=== PATIENT | male | born 1980 | race Caucasian/White ===

== ENCOUNTER 2018-06-19 18:17 | Observation (INO) | payer SELFPAY ==
[~2018-06-19] VITALS: Ht 177.8 cm; Wt 77.1 kg
--- OUTSIDE RECORDS SUMMARY | 2018-06-19 18:20 | XMS REPORT | Clinical Summary ---
Author Author [facility] Organization [facility] Address Unknown Phone Unavailable Care Team Providers Care Accounting Officer Name Role Phone Asked, No Pcp PCP Unavailable Allergies Comments Active Allergy Reactions Severity Noted Date D/t Crohn's disease Nsaids (Non-Steroidal Other (See 11/05/2015 Anti-Inflammatory Drug) Comments) D/t Crohn's disease Ketorolac 11/05/2015 Medications End Date Status Medication Sig Dispensed Refills Start Date Active hydromorPHONE (DILAUDID) Take 2 mg by 0 2 MG tablet mouth every 4 (four) hours as needed for moderate pain. Active promethazine (PHENERGAN) Take 25 mg by 0 25 MG tablet mouth every 4 (four) hours as needed for nausea or vomiting. Active levETIRAcetam (KEPPRA) Take 500 mg 0 500 MG tablet by mouth daily. Active adalimumab (HUMIRA) 40 Inject 40 mg 0 mg/0.8 mL injection under the skin once a week. Mondays Active methotrexate (TREXALL) 5 Take 5 mg by 0 MG tablet mouth 2 (two) times a week. Tuesdays and Fridays Active predniSONE (DELTASONE) 20 Take 40 mg by 0 MG tablet mouth daily. Active LORAZepam (ATIVAN) 1 MG Take 1 mg by 0 tablet mouth every 6 (six) hours as needed for anxiety. Active Problems Problem Noted Date Hematemesis 11/05/2015 Anemia Family History Medical History Relation Name Comments Cancer Mother Relation Name Status Comments Father Crohn's Disease Mother Social History Date Tobacco Use Types Packs/Day Years Used Former Smoker Cigarettes 0.5 10 Smokeless Tobacco: Former Quit: 08/07/2015 User Tobacco Cessation: Counseling Given: No Comments: patient quit 3 months ago Alcohol Use Drinks/Week oz/Week Comments No Sex Assigned at Date Recorded Not on file Industry Job Start Date Occupation Not on file Not on file Not on file Travel End Travel History Travel Start No recent travel history available. Last Filed Vital Signs Not on file Plan of Treatment Health Maintenance Due Date Last Done Comments INFLUENZA VACCINE 09/27/2018 Procedures Comments Procedure Name Priority Date/Time Associated Diagnosis TRANSFUSE RED BLOOD CELLS Routine 11/01/2017 5:25 PM CDT after 06/18/2017 Results * Transfuse RBC (11/01/2017 5:25 PM CDT) after 06/18/2017
--- OUTSIDE RECORDS SUMMARY | 2018-06-19 18:21 | XMS REPORT | Summary of Care ---
Author Organization Unknown Address Unknown Phone Unavailable Encounter ARRON Cullen(GUILHERME) [id number] Date(s): 08/12/14 - 08/12/14 [facility] [address] [employer] provided by [facility] [employer] [facility] [employer] [place] [address]- Discharge Diagnosis: Headache Discharge Disposition: Home Physician Attending: Tim Olmedo MD Vital Signs Most recent to 1 2 oldest [Reference Range]: Temperature Oral 97.6 DegF [96.4-99.1 DegF] (08/12/14 12:12 PM) Blood Pressure 105/56 mmHg 145/91 mmHg [90-140/60-90 mmHg] (08/12/14 1:52 PM) *HI* (08/12/14 12:12 PM) Respiratory Rate 15 BRMIN 18 BRMIN [14-20 BRMIN] (08/12/14 1:52 PM) (08/12/14 12:12 PM) Peripheral Pulse 92 bpm Rate [60-100 bpm] (08/12/14 12:12 PM) Weight 70.455 kg (08/12/14 12:12 PM) Problem List Condition Effective Dates Status Health Status Informant Crohns Active disease(Confirmed) Stroke(Confirmed) Resolved Allergies, Adverse Reactions, Alerts Substance Reaction Severity Status Toradol Active Medications Benadryl 12.5 mg, 0.25 mL, Route: IVP, Drug form: INJ, ONCE, Dosing Weight 70.455, kg, Pr iority: STAT, Start date: 08/12/14 13:01:00, Stop date: 08/12/14 13:01:00 Notes: (Same as: Benadryl) Start Date: 08/12/14 Stop Date: 08/12/14 Status: Completed NS (Bolus) IV 1,000 mL, 1,000 ml/hr, Infuse Over: 1 hr, Route: IV, 1,000, Drug form: INJ, ONCE , Priority: STAT, Dosing Weight 70.455 kg, Start date: 08/12/14 13:01:00, Durati on: 1 doses or times, Stop date: 08/12/14 13:01:00 Start Date: 08/12/14 Stop Date: 08/12/14 Status: Completed Reglan 10 mg, 2 mL, Route: IVP, Drug form: INJ, ONCE, Dosing Weight 70.455, kg, Priorit y: STAT, Start date: 08/12/14 13:01:00, Stop date: 08/12/14 13:01:00 Notes: (Same as: Reglan) Start Date: 08/12/14 Stop Date: 08/12/14 Status: Completed Saline Flush 0.9% 10 mL, Route: IVP, Drug Form: INJ, Dosing Weight 70.455, kg, PRN, PRN Line Flush , Start date: 08/12/14 12:23:00, Duration: 30 day, Stop date: 09/11/14 12:22:00 Notes: Same as: BD Posiflush Sterile Start Date: 08/12/14 Stop Date: 08/12/14 Status: Discontinued Visipaque 320mg/ml 120 mL, Route: IVP, Drug Form: SOLN, Dosing Weight 70.455, kg, ONCALL, STAT, Sta rt date: 08/12/14 12:53:00, Duration: 1 doses or times, Dose=2.2ml/kg, Max dose =150ml -- "To be infused by Radiology Staff ONLY" Special Instructions: Dose=2.2ml/kg, Max kqpi=[id number] -- "To be infused by Radiol ogy Staff ONLY" Start Date: 08/12/14 Stop Date: 08/12/14 Status: Completed Results ELECTROLYTES Most recent to 1 2 oldest [Reference Range]: Sodium Lvl [135-145 142 mEq/L mEq/L] (08/12/14 12:30 PM) Potassium Lvl 3.7 mEq/L [3.5-5.1 mEq/L] (08/12/14 12:30 PM) Chloride Lvl [95-109 107 mEq/L mEq/L] (08/12/14 12:30 PM) CO2 [24-32 mEq/L] 27 mEq/L (08/12/14 12:30 PM) AGAP [10.0-20.0 11.7 mEq/L mEq/L] (08/12/14 12:30 PM) CHEM PANEL Most recent to 1 2 oldest [Reference Range]: Creatinine Lvl 0.8 mg/dL [0.5-1.4 mg/dL] (08/12/14 12:30 PM) eGFR 122 mL/min/1.73m2 1 116 mL/min/1.73m2 2 *NA* *NA* (08/12/14 12:36 PM) (08/12/14 12:30 PM) BUN [7-22 mg/dL] 14 mg/dL (08/12/14 12:30 PM) Glucose Lvl [70-99 94 mg/dL 3 mg/dL] (08/12/14 12:30 PM) POC Creatinine 0.7 mg/dL [0.5-1.4 mg/dL] (08/12/14 12:36 PM) Calcium Lvl 8.5 mg/dL [8.5-10.5 mg/dL] (08/12/14 12:30 PM) 1Result Comment: The eGFR is calculated using the CKD-EPI formula. In most young, healthy individuals the eGFR will be >90 mL/min/1.73m2. The eGFR declines with age. An eGFR of 60-89 may be normal in some populations, particularly the elderly, for whom the CKD-EPI formula has not been extensively validated. Use of the eGFR is not recommended in the following populations: Individuals with unstable creatinine concentrations, including patients and those with serious co-morbid conditions. Patients with extremes in muscle mass or diet. The data above are obtained from the National Kidney Disease Education Program ( NKDEP) which additionally recommends that when the eGFR is used in patients with extremes of body mass index for purposes of drug dosing, the eGFR should be mul tiplied by the estimated BMI. 2Result Comment: The eGFR is calculated using the CKD-EPI formula. In most young, healthy individuals the eGFR will be >90 mL/min/1.73m2. The eGFR declines with age. An eGFR of 60-89 may be normal in some populations, particularly the elderly, for whom the CKD-EPI formula has not been extensively validated. Use of the eGFR is not recommended in the following populations: Individuals with unstable creatinine concentrations, including patients and those with serious co-morbid conditions. Patients with extremes in muscle mass or diet. The data above are obtained from the National Kidney Disease Education Program ( NKDEP) which additionally recommends that when the eGFR is used in patients with extremes of body mass index for purposes of drug dosing, the eGFR should be mul tiplied by the estimated BMI. 3Interpretive Data: Adult reference range values reflect the clinical guidelines of the [place] [employer]. CARDIAC ENZYMES Most recent to 1 2 oldest [Reference Range]: Total CK [12-191 62 unit/L unit/L] (08/12/14 12:30 PM) CK MB [0.5-3.6 <0.5 ng/mL ng/mL] (08/12/14 12:30 PM) CK MB Index <0.8 [0.0-2.5] (08/12/14 12:30 PM) Troponin-I <0.02 ng/mL [0.00-0.40 ng/mL] (08/12/14 12:30 PM) HEMATOLOGY Most recent to 1 2 oldest [Reference Range]: WBC [3.7-10.4 K/CMM] 6.8 K/CMM (08/12/14 12:30 PM) RBC [4.70-6.10 4.07 M/CMM M/CMM] *LOW* (08/12/14 12:30 PM) Hgb [14.0-18.0 g/dL] 10.6 g/dL *LOW* (08/12/14 12:30 PM) Hct [42.0-54.0 %] 33.1 % *LOW* (08/12/14 12:30 PM) MCV [80.0-94.0 fL] 81.2 fL (08/12/14 12:30 PM) MCH [27.0-31.0 pg] 26.1 pg *LOW* (08/12/14 12:30 PM) MCHC [32.0-36.0 32.1 g/dL g/dL] (08/12/14 12:30 PM) RDW [11.5-14.5 %] 17.6 % *HI* (08/12/14 12:30 PM) Platelet [133-450 245 K/CMM K/CMM] (08/12/14 12:30 PM) MPV [7.4-10.4 fL] 8.2 fL (08/12/14 12:30 PM) Segs [45.0-75.0 %] 70.1 % (08/12/14 12:30 PM) Lymphocytes 15.9 % [20.0-40.0 %] *LOW* (08/12/14 12:30 PM) Monocytes [2.0-12.0 11.2 % %] (08/12/14 12:30 PM) Eosinophils [0.0-4.0 2.1 % %] (08/12/14 12:30 PM) Basophils [0.0-1.0 0.7 % %] (08/12/14 12:30 PM) Segs-Bands # 4.7 K/CMM [1.5-8.1 K/CMM] (08/12/14 12:30 PM) Lymphocytes # 1.1 K/CMM [1.0-5.5 K/CMM] (08/12/14 12:30 PM) Monocytes # [0.0-0.8 0.8 K/CMM K/CMM] (08/12/14 12:30 PM) Eosinophils # 0.1 K/CMM [0.0-0.5 K/CMM] (08/12/14 12:30 PM) PT [12.0-14.7 13.7 seconds seconds] (08/12/14 12:30 PM) INR [0.85-1.17] 1.05 4 (08/12/14 12:30 PM) PTT [22.9-35.8 34.9 seconds 5 seconds] (08/12/14 12:30 PM) 4Interpretive Data: RECOMMENDED RANGES FOR PROTIME INR: 2.0-3.0 for most medical and surgical thromboembolic states. 2.5-3.5 for artificial heart valves and recurrent embolism. INR SHOULD BE USED ONLY FOR PATIENTS ON STABLE ANTICOAGULANT THERAPY. 5Interpretive Data: Heparin Therapeutic Range: 57 - 92 Seconds Immunizations No data available for this section Procedures No data available for this section Social History Social History Type Response Smoking Status Current every day smoker; Type: Cigarettes; Exposure to Tobacco Smoke None; Cigarette Smoking Last 365 Days Yes; Reg Smoking Cessation Counseling Yes Assessment and Plan No data available for this section
--- OUTSIDE RECORDS SUMMARY | 2018-06-19 18:21 | XMS REPORT | Summary of Care ---
Author Organization Unknown Address Unknown Phone Unavailable Encounter [employer](GUILHERME) [id number] Date(s): 08/14/14 - 08/16/14 [facility] [address] [facility] provided by [employer] [place] [address]- Discharge Disposition: Home Physician Attending: Beckie Rojo MD Physician Admitting: Beckie Rojo MD Physician_Referring: Frieda Aguayo MD Vital Signs 1 2 3 Most recent to oldest [Reference Range]: 177.8 cm (08/14/14 8:38 PM) Height 98.3 DegF (08/16/14 7:31 AM) 98.3 DegF (08/16/14 4:27 AM) 98.7 DegF (08/16/14 2:26 AM) Temperature Oral [96.4-99.1 DegF] 122/64 mmHg (08/16/14 7:31 AM) 122/69 mmHg (08/16/14 4:27 AM) 117/68 mmHg (08/16/14 2:26 AM) Blood Pressure [90-140/60-90 mmHg] 18 BRMIN (08/16/14 7:31 AM) 20 BRMIN (08/16/14 4:27 AM) 20 BRMIN (08/16/14 2:26 AM) Respiratory Rate [14-20 BRMIN] 95 bpm (08/16/14 7:31 AM) 99 bpm (08/16/14 4:27 AM) 101 bpm *HI* (08/16/14 2:26 AM) Peripheral Pulse Rate [60-100 bpm] 64.8 kg (08/14/14 8:38 PM) Weight 20.5 m2 (08/14/14 8:38 PM) Body Mass Index Problem List Condition Effective Dates Status Health Status Informant ADHD (attention Resolved deficit hyperactivity disorder)(Confirmed) Crohn Resolved disease(Confirmed) Crohns Active disease(Confirmed) CVA (cerebral Resolved vascular accident)(Confirmed) Factor V Resolved Leiden(Confirmed) Stroke(Confirmed) Resolved Allergies, Adverse Reactions, Alerts Substance Reaction Severity Status NKDA Active Toradol Active Medications acetaminophen 650 mg, 2 tab, Route: PO, Drug form: TAB, Q4H, Dosing Weight 64.8, kg, PRN Pain 1-3/Temp > 99.5 F, Start date: 08/14/14 20:56:00, Duration: 30 day, Stop date: 09/13/14 20:55:00 Notes: Do not exceed 4 gm/day. (Same as: Tylenol) Start Date: 08/14/14 Stop Date: 08/16/14 Status: Discontinued Adderall XR 30 mg oral capsule, extended release 30 mg=1 cap, PO, BID Start Date: 08/16/14 Status: Ordered aspirin 81 mg, 1 tab, Route: PO, Drug form: CHEWTAB, Daily, Dosing Weight 64.8, kg, Star t date: 08/15/14 17:00:00, Duration: 30 day, Stop date: 09/14/14 9:00:00 Notes: Take with food. Start Date: 08/15/14 Stop Date: 08/16/14 Status: Discontinued aspirin 81 mg tablet, enteric coated 81 mg=1 tab, PO, Daily Start Date: 08/16/14 Status: Ordered Depacon 100 mg/mL intravenous solution + Sodium Chloride 0.9% IV 50 mL 500 mg, 5 mL, Route: IVPB, Q6H-02, Dosing Weight 64.8, kg, Priority: STAT, Start date: 08/15/14 8:15:00, Stop date: 08/16/14 4:00:00 Notes: Dilute in at least 50ml D5W or NS. Infusion rate=20 mg/min(Same As: Depac on) Start Date: 08/15/14 Stop Date: 08/16/14 Status: Completed docusate 100 mg, 1 cap, Route: PO, Drug form: CAP, Q12H, Dosing Weight 64.8, kg, Start da te: 08/14/14 21:00:00, Duration: 30 day, Stop date: 09/13/14 9:00:00 Notes: (Same as: Colace) Start Date: 08/14/14 Stop Date: 08/16/14 Status: Discontinued enalapril 0.625 mg, 0.5 mL, Route: IVP, Drug form: INJ, Q6H, Dosing Weight 64.8, kg, PRN H ypertension, Start date: 08/14/14 20:56:00, Duration: 30 day, Stop date: 20:55:00, For SBP > 180mmHg and/or DBP > 105mmHg Notes: (Same as: Vasotec-IV) Start Date: 08/14/14 Stop Date: 08/16/14 Status: Discontinued heparin 5,000 unit, 1 mL, Route: SUB-Q, Drug form: INJ, Q8H, Start date: 08/16/14 0:00:0 0, Duration: 30 day, Stop date: 09/14/14 16:00:00 Notes: porcine heparin Start Date: 08/16/14 Stop Date: 08/16/14 Status: Discontinued labetalol 10 mg, 2 mL, Route: IVP, Drug form: INJ, Q10Min, Dosing Weight 64.8, kg, PRN Hyp ertension, For SBP > 180 mmHg and/or DBP > 105 mmHg, Priority: Routine, Start date: 08/14/14 20:56:00, Duration: 30 day, Stop date: 09/13/14 20:55:00 Start Date: 08/14/14 Stop Date: 08/16/14 Status: Discontinued Lipitor 40 mg, 1 tab, Route: PO, Drug form: TAB, Bedtime, Dosing Weight 64.8, kg, Priori ty: NOW, Start date: 08/14/14 20:59:00, Duration: 30 day, Stop date: 09/12/14 21 :00:00 Notes: (Same as: Lipitor) Start Date: 08/14/14 Stop Date: 08/16/14 Status: Discontinued methotrexate 2.5 mg oral tablet 2.5 mg=1 tab, PO, Daily Start Date: 08/16/14 Status: Ordered MiraLax 17 gm, 1 pkt, Route: PO, Drug form: PWDR, Daily, Dosing Weight 64.8, kg, Priorit y: NOW, Start date: 08/15/14 17:03:00, Duration: 30 day, Stop date: 09/14/14 9:0 0:00 Start Date: 08/15/14 Stop Date: 08/16/14 Status: Discontinued Ofirmev Route: IV, Drug form: INJ, ONCE, Dosing Weight 64.8, kg, Start date: 08/14/14 22 :30:00, Stop date: 08/14/14 22:30:00 Notes: MEDICATION WASTE Product Size: 1000 mgProduct Wasted: ___ mg Start Date: 08/14/14 Stop Date: 08/14/14 Status: Completed Omnipaque 350mg/ml 85 mL, Route: IVP, Drug Form: SOLN, Dosing Weight 64.8, kg, ONCALL, STAT, Start date: 08/15/14 0:14:00, Duration: 1 doses or times, Dose=2.2ml/kg, Max dyvc=832 ml -- "To be infused by Radiology Staff ONLY" Special Instructions: Dose=2.2ml/kg, Max ctog=126aj -- "To be infused by Radiol ogy Staff ONLY" Notes: (same as:Omnipaque 350). Start Date: 08/15/14 Stop Date: 08/15/14 Status: Completed pantoprazole 40 mg, Route: IVP, Drug form: INJ, Daily, Dosing Weight 64.8, kg, Start date: 9:00:00, Duration: 30 day, Stop date: 09/13/14 9:00:00 Notes: . (Same as: Protonix) Start Date: 08/15/14 Stop Date: 08/16/14 Status: Discontinued Plavix 75 mg oral tablet 75 mg=1 tab, PO, Daily Start Date: 08/16/14 Status: Ordered Reglan 10 mg, 2 mL, Route: IVP, Drug form: INJ, Q6H-02, Dosing Weight 64.8, kg, Priorit y: STAT, Start date: 08/15/14 8:14:00, Stop date: 08/16/14 4:00:00 Notes: (Same as: Reglan) Start Date: 08/15/14 Stop Date: 08/16/14 Status: Completed Saline Flush 0.9% 10 ml, Route: IVP, Drug Form: INJ, Dosing Weight 64.8, kg, Q12H, Start date: 21:00:00, Duration: 30 day, Stop date: 09/13/14 9:00:00 Notes: (Same as: BD Posiflush) Start Date: 08/14/14 Stop Date: 08/16/14 Status: Discontinued Saline Flush 0.9% 10 ml, Route: IVP, Drug Form: INJ, Dosing Weight 64.8, kg, PRN, PRN Line Flush, Start date: 08/14/14 20:56:00, Duration: 30 day, Stop date: 09/13/14 20:55:00 Notes: (Same as: BD Posiflush) Start Date: 08/14/14 Stop Date: 08/16/14 Status: Discontinued Sodium Chloride 0.9% (Bolus) IV 1,000 mL, 1,000 ml/hr, Infuse Over: 1 hr, Route: IV, 1,000, Drug form: INJ, ONCE , Priority: STAT, Dosing Weight 64.8 kg, Start date: 08/15/14 8:14:00, Duration: 1 doses or times, Stop date: 08/15/14 8:14:00 Start Date: 08/15/14 Stop Date: 08/15/14 Status: Completed Sodium Chloride 0.9% IV 1,000 mL 1,000 mL, Rate: 75 ml/hr, Infuse over: 13.3 hr, Route: IV, Dosing Weight 64.8 kg , Total Volume: 1,000, Start date: 08/14/14 20:56:00, Duration: 30 day, Stop carmen e: 09/13/14 20:55:00 Start Date: 08/14/14 Stop Date: 08/16/14 Status: Discontinued Solu-MEDROL 125 mg, 2 mL, Route: IVP, Drug form: INJ, Q6H-02, Dosing Weight 64.8, kg, Priori ty: STAT, Start date: 08/15/14 8:15:00, Duration: 30 day, Stop date: 09/14/14 8: 00:00 Notes: (Same as:Solu-MEDROL, A-Methapred) Start Date: 08/15/14 Stop Date: 08/15/14 Status: Voided With Results Tylenol Route: IV, Drug form: INJ, ONCE, Dosing Weight 64.8, kg, Start date: 08/14/14 20 :58:00, Stop date: 08/14/14 20:58:00 Notes: MEDICATION WASTE Product Size: 1000 mgProduct Wasted: ___ mg Start Date: 08/14/14 Stop Date: 08/14/14 Status: Deleted Tylenol 650 mg + empty container 1 ea Route: IV, Drug form: INJ, ONCE, Dosing Weight 64.8, kg, Start date: 08/16/14 3: 59:00, Stop date: 08/16/14 3:59:00 Notes: Infuse over 15 minutesDo not exceed 4gm/day of acetaminophen MEDICAT ION WASTE Product Size: 1000 mgProduct Wasted: ___ mg Start Date: 08/16/14 Stop Date: 08/16/14 Status: Completed Versed 1 mg, Route: IV, Drug form: INJ, PRN, Dosing Weight 64.8, kg, PRN Other -See Com ment, Start date: 08/15/14 3:50:00, Duration: 30 day, Stop date: 09/14/14 3:49:0 0 Start Date: 08/15/14 Stop Date: 08/15/14 Status: Discontinued Versed 1 mg, 1 mL, Route: IV, Drug form: INJ, ONCE, Dosing Weight 64.8, kg, PRN Agitati on, Start date: 08/15/14 0:33:00 Notes: (Same as: Versed) MEDICATION WASTE Product Size: 2 mgProduct Was kavya: ___ mg Start Date: 08/15/14 Stop Date: 08/16/14 Status: Discontinued Results ELECTROLYTES Most recent to 1 2 oldest [Reference Range]: Sodium Lvl [135-145 141 mEq/L 142 mEq/L mEq/L] (08/15/14 12:52 AM) (08/14/14 10:39 PM) Potassium Lvl 4.3 mEq/L 1 4.1 mEq/L [3.5-5.1 mEq/L] (08/15/14 12:52 AM) (08/14/14 10:39 PM) Chloride Lvl [95-109 107 mEq/L 108 mEq/L mEq/L] (08/15/14 12:52 AM) (08/14/14 10:39 PM) CO2 [24-32 mEq/L] 25 mEq/L 24 mEq/L (08/15/14 12:52 AM) (08/14/14 10:39 PM) AGAP [10.0-20.0 13.3 mEq/L 14.1 mEq/L mEq/L] (08/15/14 12:52 AM) (08/14/14 10:39 PM) 1Result Comment: Specimen Slightly Hemolyzed. CHEM PANEL Most recent to 1 2 oldest [Reference Range]: Creatinine Lvl 0.7 mg/dL 0.8 mg/dL [0.5-1.4 mg/dL] (08/15/14 12:52 AM) (08/14/14 10:39 PM) eGFR 123 mL/min/1.73m2 2 117 mL/min/1.73m2 3 *NA* *NA* (08/15/14 12:52 AM) (08/14/14 10:39 PM) BUN [7-22 mg/dL] 12 mg/dL 12 mg/dL (08/15/14 12:52 AM) (08/14/14 10:39 PM) B/C Ratio [6-25] 17 (08/15/14 12:52 AM) Glucose Lvl [70-99 118 mg/dL 4 96 mg/dL 5 mg/dL] *HI* (08/14/14 10:39 PM) (08/15/14 12:52 AM) Total Protein 7.1 g/dL [6.4-8.4 g/dL] (08/15/14 12:52 AM) Albumin Lvl [3.5-5.0 3.7 g/dL g/dL] (08/15/14 12:52 AM) Globulin [2.0-4.0 3.4 g/dL g/dL] (08/15/14 12:52 AM) A/G Ratio [0.7-1.6] 1.1 (08/15/14 12:52 AM) Calcium Lvl 8.9 mg/dL 8.4 mg/dL [8.5-10.5 mg/dL] (08/15/14 12:52 AM) *LOW* (08/14/14 10:39 PM) ALT [0-65 unit/L] 20 unit/L (08/15/14 12:52 AM) AST [0-37 unit/L] 28 unit/L (08/15/14 12:52 AM) Alk Phos [39-136 54 unit/L unit/L] (08/15/14 12:52 AM) Bili Total [0.2-1.3 0.5 mg/dL mg/dL] (08/15/14 12:52 AM) 2Result Comment: The eGFR is calculated using [...] be mul tiplied by the estimated BMI. 3Result Comment: The eGFR is calculated using the [...] be mul tiplied by the estimated BMI. 4Interpretive Data: Adult reference range values reflect the clinical guidelines of the [place] [employer]. 5Interpretive Data: Adult reference range values reflect the clinical guidelines of the [place] [employer]. LIPIDS Most recent to 1 2 oldest [Reference Range]: CHD Risk [4.00-7.30] 2.39 *LOW* (08/14/14 10:39 PM) Chol [<=199 mg/dL] 117 mg/dL (08/14/14 10:39 PM) Trig [<=149 mg/dL] 43 mg/dL (08/14/14 10:39 PM) HDL [>=61 mg/dL] 49 mg/dL *LOW* (08/14/14 10:39 PM) LDL (Calculated) 59 mg/dL [<=99 mg/dL] (08/14/14 10:39 PM) VLDL 9 *NA* (08/14/14 10:39 PM) SPECIAL CHEMISTRY Most recent to 1 2 oldest [Reference Range]: Hgb A1C [<=5.6 %] 5.4 % (08/14/14 10:39 PM) ANEMIA STUDY Most recent to 1 2 oldest [Reference Range]: Vitamin B12 Lvl 290 pg/mL [254-1320 pg/mL] (08/15/14 12:52 AM) DRUG SCREEN Most recent to 1 2 oldest [Reference Range]: U Amph Scr Negative [Negative] *NA* (08/14/14 10:39 PM) U Lexi Scr Positive [Negative] *ABN* (08/14/14 10:39 PM) U Benzodia Scr Negative [Negative] *NA* (08/14/14 10:39 PM) U Cocaine Scr Negative [Negative] *NA* (08/14/14 10:39 PM) U Opiate Scr Positive [Negative] *ABN* (08/14/14 10:39 PM) U Phencyc Scr Negative [Negative] *NA* (08/14/14 10:39 PM) U Cannab Scr Negative [Negative] *NA* (08/14/14 10:39 PM) UDS Note See Note 6 (08/14/14 10:39 PM) 6Interpretive Data: Drugs reported as positive have not been confirmed by a second method and should be used for medical purposes only. To order confirmation, contact laboratory. note: Below are cut-off concentrations for all urine drugs of abuse performed in the laboratory. Some drugs listed in the table may not be included in this panel. Description Cut-off concentration Amphetamine 1000 ng/mL Barbiturates 200 ng/mL Benzodiazepines 300 ng/mL Cocaine metabolites 300 ng/mL Opiates 300 ng/mL Phencyclidine 25 ng/mL Propoxyphene 300 ng/mL Marijuana metabolites 50 ng/mL Methadone 300 ng/mL Urine alcohol 20 mg/dL URINE AND STOOL Most recent to 1 2 oldest [Reference Range]: UA Turbidity [Clear] Clear (08/14/14 10:39 PM) UA Color [Yellow] Yellow *NA* (08/14/14 10:39 PM) UA pH [5.0-8.0] 5.5 (08/14/14 10:39 PM) UA Spec Grav 1.016 [<=1.030] (08/14/14 10:39 PM) UA Glucose [Negative Negative mg/dL mg/dL] *NA* (08/14/14 10:39 PM) UA Blood [Negative] Negative (08/14/14 10:39 PM) UA Ketones [Negative Negative mg/dL mg/dL] *NA* (08/14/14 10:39 PM) UA Protein [Negative Negative mg/dL mg/dL] (08/14/14 10:39 PM) UA Urobilinogen <=1.0 mg/dL [0.1-1.0 mg/dL] *NA* (08/14/14 10:39 PM) UA Bili [Negative] Negative *NA* (08/14/14 10:39 PM) UA Leuk Est Negative [Negative] (08/14/14 10:39 PM) UA Nitrite Negative [Negative] (08/14/14 10:39 PM) UA WBC [0-5 /HPF] <1 /HPF (08/14/14 10:39 PM) UA Sq Epi None Seen *NA* (08/14/14 10:39 PM) UA Mucus [None Seen Few /LPF /LPF] *NA* (08/14/14 10:39 PM) IMMUNOLOGY Most recent to 1 2 oldest [Reference Range]: Treponemal Scr [Non Non Reactive Non Reactive Reactive] *NA* *NA* (08/15/14 12:52 AM) (08/15/14 12:52 AM) SKYE [Negative] Negative (08/15/14 12:52 AM) C3 Complement 110 mg/dL [88-201 mg/dL] (08/15/14 12:52 AM) C4 Complement [16-47 37 mg/dL mg/dL] (08/15/14 12:52 AM) DNA Ab (DS) Negative [Negative] (08/15/14 12:52 AM) SS-A (Ro) Ab [<=0.9 <0.2 AI AI] (08/15/14 12:52 AM) SS-B (La) Ab [<=0.9 <0.2 AI AI] (08/15/14 12:52 AM) C-ANCA [Negative] Negative (08/15/14 12:52 AM) P-ANCA [Negative] Negative (08/15/14 12:52 AM) Cryoglob [Negative] Negative (08/15/14 12:52 AM) CRP [<=2.9 mg/L] <2.9 mg/L (08/15/14 12:52 AM) HIV 1/2 Ab Negative [Negative] *NA* (08/15/14 12:52 AM) Cardiolipin IgA 0.9 APL-U/mL [<=19.9 APL-U/mL] (08/15/14 12:52 AM) Cardiolipin IgG <1.6 GPL-U/mL [<=19.9 GPL-U/mL] (08/15/14 12:52 AM) Cardiolipin IgM 0.4 MPL-U/mL [<=19.9 MPL-U/mL] (08/15/14 12:52 AM) Beta2-Glycoprotein 6.7 unit/mL IgM [<=19.9 unit/mL] (08/15/14 12:52 AM) Beta2-Glycoprotein <1.4 unit/mL IgG [<=19.9 unit/mL] (08/15/14 12:52 AM) Beta2-Glycoprotein 1.0 unit/mL IgA [<=19.9 unit/mL] (08/15/14 12:52 AM) Homocyst Tot 8.3 uMol/L [3.7-13.9 uMol/L] (08/15/14 12:52 AM) Hgb S % [0.0-0.0 %] 0.0 % (08/15/14 12:52 AM) Hgb A % [95.8-97.8 97.5 % %] (08/15/14 12:52 AM) Hgb A2 % [2.2-3.2 %] 2.5 % (08/15/14 12:52 AM) Hgb F % [0.0-1.0 %] <0.5 % (08/15/14 12:52 AM) Hgb C % [0.0-0.0 %] 0.0 % (08/15/14 12:52 AM) Hgb Interp No abnormal hemoglobins are detected; normal hemoglobin electrophoresis pattern. I have personally reviewed the test results and concur with the resident's interpretation. CPT 49078-RJ *NA* (08/15/14 12:52 AM) HEMATOLOGY Most recent to 1 2 oldest [Reference Range]: WBC [3.7-10.4 K/CMM] 8.0 K/CMM (08/14/14 10:39 PM) RBC [4.70-6.10 4.20 M/CMM M/CMM] *LOW* (08/14/14 10:39 PM) Hgb [14.0-18.0 g/dL] 11.2 g/dL *LOW* (08/14/14 10:39 PM) Hct [42.0-54.0 %] 34.7 % *LOW* (08/14/14 10:39 PM) MCV [80.0-94.0 fL] 82.6 fL (08/14/14 10:39 PM) MCH [27.0-31.0 pg] 26.7 pg *LOW* (08/14/14 10:39 PM) MCHC [32.0-36.0 32.3 g/dL g/dL] (08/14/14 10:39 PM) RDW [11.5-14.5 %] 17.7 % *HI* (08/14/14 10:39 PM) Platelet [133-450 260 K/CMM K/CMM] (08/14/14 10:39 PM) MPV [7.4-10.4 fL] 8.4 fL (08/14/14 10:39 PM) Segs [45.0-75.0 %] 80.1 % *HI* (08/14/14 10:39 PM) Lymphocytes 10.0 % [20.0-40.0 %] *LOW* (08/14/14 10:39 PM) Monocytes [2.0-12.0 7.7 % %] (08/14/14 10:39 PM) Eosinophils [0.0-4.0 1.9 % %] (08/14/14 10:39 PM) Basophils [0.0-1.0 0.3 % %] (08/14/14 10:39 PM) Segs-Bands # 6.4 K/CMM [1.5-8.1 K/CMM] (08/14/14 10:39 PM) Lymphocytes # 0.8 K/CMM [1.0-5.5 K/CMM] *LOW* (08/14/14 10:39 PM) Monocytes # [0.0-0.8 0.6 K/CMM K/CMM] (08/14/14 10:39 PM) Eosinophils # 0.2 K/CMM [0.0-0.5 K/CMM] (08/14/14 10:39 PM) Sed Rate [0-15 1 mm/hr mm/hr] (08/15/14 12:52 AM) PT [12.0-14.7 12.9 seconds 13.4 seconds seconds] (08/15/14 12:52 AM) (08/14/14 10:39 PM) INR [0.85-1.17] 0.97 7 1.02 8 (08/15/14 12:52 AM) (08/14/14 10:39 PM) F5 Leiden PCR Negative (08/15/14 12:52 AM) F5 Leiden Intrp FACTOR V LEIDEN: Negative INTERPRETATION: Molecular analysis for the Factor V Leiden, [id number] mutation was negative. Other causes of activated protein C resistance and hereditary forms of venous thrombosis are not ruled out. Final diagnosis requires correlation with clinical history and other pertinent laboratory findings. Where appropriate, medical consultation and/or genetic counseling should be offered to inform and explain the risk implications and genetic implications of these test results. ASSAY LIMITATIONS: The assay uses the FDA-cleared [employer] Factor V Leiden IVD(Poymerase chain reaction/FRET detection)kit, [employer] WizeA Inbenta LC Instrument and the [employer] LightCycler 1.2 Instrument. A 222-bp fragment of Factor V gene (FV) containing the Factor V Leiden sequence is amplified in the assay. The assay is designed to detect the G [id number] mutation only. Other causes of activated protein C resistance and hereditary forms of venous thrombosis are not ruled out. However,the melting curve analysis may implicate the presence of possible rare mutations at positions 1689, 1692 and 1696. (Further testing will be recommended in the report). A minimum detection level is 202 copies of Factor V Leiden per reaction. The level of agreement between the Factor V Leiden Kit and sequence analysis was 99.4%. The test result must be interpreted along with the patient's clinical history and relevant laboratory data. This assay has been validated by [facility]. *NA* (08/15/14 12:52 AM) Factor VIII [50-242 326 % %] *HI* (08/15/14 12:52 AM) AT III Func [77-140 118 % %] (08/15/14 12:52 AM) PTT [22.9-35.8 31.2 seconds 9 32.0 seconds 10 seconds] (08/15/14 12:52 AM) (08/14/14 10:39 PM) dRVV Ratio [<=1.20] 0.78 (08/15/14 12:52 AM) Hex Phos N Negative [Negative] (08/15/14 12:52 AM) Lup Interp Negative for lupus anticoagulant with all tests performed (dRVVT, and hexagonal phospholipid neutralization). CPT: 64880 *NA* (08/15/14 12:52 AM) Protein C Func 136 % [72-147 %] (08/15/14 12:52 AM) Protein S Func 80 % [54-137 %] (08/15/14 12:52 AM) 7Interpretive Data: RECOMMENDED RANGES FOR PROTIME INR: 2.0-3.0 for most medical and surgical thromboembolic states. 2.5-3.5 for artificial heart valves and recurrent embolism. INR SHOULD BE USED ONLY FOR PATIENTS ON STABLE ANTICOAGULANT THERAPY. 8Interpretive Data: RECOMMENDED RANGES FOR PROTIME INR: 2.0-3.0 for most medical and surgical thromboembolic states. 2.5-3.5 for artificial heart valves and recurrent embolism. INR SHOULD BE USED ONLY FOR PATIENTS ON STABLE ANTICOAGULANT THERAPY. 9Interpretive Data: Heparin Therapeutic Range: 57 - 92 Seconds 10Interpretive Data: Heparin Therapeutic Range: 57 - 92 Seconds Immunizations No data available for this section Procedures Procedure Date Related Diagnosis Body Site Resection1 1small bowel resection 7 months ago related to crohns disease management Social History Social History Type Response Smoking Status Current every day smoker; Type: Cigarettes; Exposure to Tobacco Smoke None; Cigarette Smoking Last 365 Days Yes; Reg Smoking Cessation Counseling Yes Assessment and Plan Extracted from: Title: Stroke team initial history Author: Martine De Los Santos MD Date: 08/14/14 and physical STROKE TEAM / NEUROLOGY - HISTORY AND PHYSICAL Attending of Record: Beckie Dolan Patient Name: Tramaine Garrido Date of Admission: 08.14. Requesting Physician/Service: Direct trasnfer from [facility] to the stroke unit. 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 Around 12 at noon while he was typing he started to have tingling, numbness as well as weakness on the left side of his body. This was followed by dizziness and blurry/ double vision in left eye in a few seconds. He called 911, and he was taken to [facility]( arrival time 1 PM), initial NIHSS of 10, and he was given IV TPA at 1420 by the [facility] and they requested txfer to [facility]. . Patient was subsequently trasnferred to our center for HLC. Of note, patient was on ASA 81 mg daily and plavix 75 mg daily and he was complaint with his medications. REVIEW OF SYSTEMS: GEN: no fever, chills, weight loss, fatigue EYES: no blurred vision, double vision CARDIO: no chest pain, palpitations PULM: no shortness of breath, cough GI: no nausea, vomiting, diarrhea, no abd pain : no frequency, dysuria, hematuria NEURO: see HPI SKIN: no rash or lesion MSK: no pain, swelling, redness, heat in muscles, no limited ROM, weakness, or atrophy, no cramps LYMPH/IMMUNO: No lymph node enlargement/tenderness, no heat/cold intolerance PAST MEDICAL HISTORY: -Crohn Disease -Factor V Leiden( ?) -previous stroke PAST SURGICAL HISTORY: -Small bowel resection 7 months ago. FAMILY MEDICAL HISTORY: -History of Factor V Leiden(?) in his father, mother and sister. -Stroke in father, mother and sister. SOCIAL HISTORY: -Denies smoking -Social drinker -denies recreational drug use MEDICATIONS: -ASA 81 mg dialy -Plavix 75 mg dialy -MTX 12.5 mg PO weekly( wednesdays) -Prednisone( does not remember the dosage). ALLERGIES: -Toradol causes Hives. PHYSICAL EXAM: Vital Signs: GENERAL: Awake, NAD HEENT: - Normocephalic and atraumatic; MMM LUNGS - Clear to auscultation bilaterally with no wheezes CV - S1S2 RRR, no m/r/g, equal pulses bilaterally. ABDOMEN - Soft, nontender, nondistended with normoactive BS NEURO: Mental status: Awake, alert, and interactive. Answers questions and follows commands appropriately. Cranial nerves: Pupils equal, round, and reactive. R 3 mm L 3 mm. Decreased vision Acquity in left eye. Eye movements full without nystagmus. partial left lower facial droop, no sensation to soft touch on the left side of face. Tongue and palate midline. Motor: -Normal bulk and tone. Muscle strngth: 5/5 in all muscle compartments in RUE, 5/5 in all muscle compartments in RLE. 2/5 in all muscle compartmetns in LUE 2/5 in all muscle compartments in LLE. Sensation: No sensation to soft touch on left upper and lower extremities. Coordination: No dysmetria on finger-nose on the right side. Reflexes: R Biceps 2+, Triceps 2+, Brachioradialis 2+, Patella 2+, Ankle 2+. L Biceps 2+, Triceps 2+, Brachioradialis 2+, Patella 2+, Ankle 2+. Toes downgoing bilaterally. Gait: deferred. NIH Stroke Scale (NIHSS) 0 1a. Level of Consciousness; 0-alert 1-drowsy 2-stupor 3-comatose 0 1b. LOC Questions month and age; 0-both 1-one 2-neither 0 1c. 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 Best Gaze; 0-nl 1-partial 2-forced gaze 2 3. Visual Orteag; 0-No visual loss. 1-Partial hemianopia 2-Complete 3-Bilateral 2 4. Facial Palsy; 0-none 1-minor 2-partial 3-complete 0 5. Motor - R arm; 0-No drift 1-Drift 2-Some antigravity 3-No antigravity 4- No movement 0 6. Motor - R leg; 0-No drift 1-Drift 2-Some antigravity 3-No antigravity 4- No movement 3 7. Motor - L arm; 0-No drift 1-Drift 2-Some antigravity 3-No antigravity 4- No movement 3 8. Motor - L leg; 0-No drift 1-Drift 2-Some antigravity 3-No antigravity 4- No movement 0 9. Limb Ataxia; 0 absent 1 - 1limb 2 - 2 limbs 2 10. Sensory; 0-nl 1-partial loss 2-dense loss 0 11. Best Language; 0-nl 1-mild/mod 2-severe 3-mute 1 12. Dysarthria; 0-nl 1-mild/mod 2-severe x-untestable 0 13. Extinction and Inattention (formerly Neglect); 0-none 1-partial 2-complete TOTAL SCORE 13 SIGNIFICANT LABS( from [facility]): Creatinine: 0.76 Glucose: 111 INR: 1.04 Cardiac Markers: negative DIAGNOSTIC TESTS: CT Head( [facility]): is not on the disk. 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 PLAN Admit to stroke unit. under Dr. Rojo. Post IV t-PA care per protocol. Goal BP post-tPA < 180/105. Check UDS IV NS 75 cc/h Telemetry EKG HOB flat No aspirin/ plavix or heparin products for 24 hours post-t-PA, per protocol( TPA was given at 1420). Atorvastatin 40 mg daily. MRI brain to evaluate for infarct. .[or exclusion of MRI indicated] TTE to evaluate for cardiac source of embolus. Check fasting lipid panel and HbA1c. Treat fevers and blood sugars aggressively. 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 NPO prior to bedside swallow assessment; and escalation of care as determined by nurse DVT prophylaxis with SCDs. Heparin SQ if repeat imaging did not show HT. Hypercoagulability and Vasculitis Pannel sent out. NPO for possible UBALDO tomorrow. Patient was discussed with absorption plant operator stroke fellow, Dr. Givens. Martine De Los Santos, PGY-2 [facility] Neurology Department Pager: [phone] THE FOLLOWING WERE PRESENT ON ADMISSION: FAMILY PRACTICE DOCTOR - headache, clinical stroke Respiratory - None Cardiovascular - None Infectious - None GI - Crohn's Disease Renal - None Heme- Factor V clotting problem( V Leiden?) Cancer - None Trauma - None ACUTE STROKE BENCHMARKS: Patient was given TPA in [facility]. TIME PATIENT LAST SEEN NORMAL 12 at noon on 08.14 Mandatory CODE STROKE ACTIVATION (CARE[employer] COMPUTER TIME) not known Mandatory Resident looks at his/her page time (if synced w/ [employer]) NEUROLOGY RESIDENT ARRIVAL AT THE BEDSIDE ([employer]ARE[employer] COMPUTER TIME) Mandatory Periodically, sync tPA pager with the [employer] computer time. IV TPA BOLUS (TIME AND DOSE) at 1420 [facility]. Mandatory IV TPA INFUSION (TIME AND DOSE) Mandatory DELAYS IN THE CODE STROKE PROCESS Mandatory STROKE STAFF I have personally evaluated the patient. i have reviewed the resident 's note detailed above. I agree with the resident's findings, assessment and plan as outlined in the note except as detailed below. In addition, i have reviewed the patient's neuroimaging findings which reveal: CTA/CTP: dominant L VA, R VA ends in PICA; no abnormalities MRI/MRA 08/14 ([place]): no acute infarct, completely normal MRI brain; MRA head and neck also look fine MRI 08/15: negative TTE: pending LIPIDS: [id number] Trig43 HDL49 L LDL (Calculated)59 Hgb A1C5.4 exam: drowsy but cooperates with exam, lanugage is normal, reports subjective decreased sensation to LT left face, cannot clear strength, effort dependent, +merritt's, he is diffusely hyporeflexic impression/Plan: 34 y.o. male presented to an outside hospital with L hemiparesis, received tpa. his neuroimaging is normal, no acute ischemic stroke and his exam is functional with us and with PT. this patient was seen earlier this week in our ED by one of our fellows with , different ; in addition, in 2012, our stroke group received notification (with a picture) of this patient presenting to EDs with the same clinical presentation and receiving IV tpa. per nursing staff, he is requesting narcotics for FARFAN but is being managed with migraine treatment instead. i have confronted this patient about his similar presentation earlier this week and he denies being here. i inquired into family we can contact, he states his is in the in [place] and not reachable. he denies that there is any underlying problem with sadness or anxiety which might underlie his behavior and is interested in what can be done to improve his left hemiparesis. he refused psychiatry evaluation. will continue PT/OT, NO NARCOTICS. no further diagnostic testing indicated from the stroke standpoint. THE FOLLOWING WERE PRESENT ON ADMISSION: malingering Z76.5 438.21 hemiparesis left, dominant -due to above 285.9 Anemia -likely chronic headache -likely malingering [id number] Addendum impression/Plan: by 34 y.o. male presented to an outside hospital with L hemiparesis, received tpa. his Rojo, neuroimaging is normal, no acute ischemic stroke and his exam is functional with us and Beckie with PT. this patient was seen earlier this week in our ED by one of our fellows with MRN Keyanna HE [id number], different ; in addition, in 2012, our stroke group received notification on (with a picture) of this patient presenting to EDs with the same clinical presentation and 08/15/2014 receiving IV tpa. 17:12 per nursing staff, he is requesting narcotics for FARFAN but is being managed with migraine treatment instead. i have confronted this patient about his similar presentation earlier this week and he denies being here. i inquired into family we can contact, he states his is in the in [place] and not reachable. he denies that there is any underlying problem with sadness or anxiety which might underlie his behavior and is interested in what can be done to improve his left hemiparesis. he refused psychiatry evaluation. will continue PT/OT, NO NARCOTICS. no further diagnostic testing indicated from the stroke standpoint.
--- OUTSIDE RECORDS SUMMARY | 2018-06-19 18:21 | XMS REPORT | Summary of Care ---
Author Organization Unknown Address Unknown Phone Unavailable Encounter HQ Subhash(GUILHERME) [id number] Date(s): 09/05/14 - 09/06/14 [facility] [address] [place] [address]- Discharge Disposition: Home Physician Attending: Polo Smith MD Physician Admitting: Polo Smith MD Physician_Referring: Polo Smith MD Vital Signs 1 2 3 Most recent to oldest [Reference Range]: 177.8 cm (09/05/14 5:17 PM) Height 97.4 DegF (09/06/14 11:17 AM) 97.6 DegF (09/06/14 7:25 AM) 97.9 DegF (09/06/14 3:58 AM) Temperature Oral [96.4-99.1 DegF] 129/77 mmHg (09/06/14 11:17 AM) 118/78 mmHg (09/06/14 7:25 AM) 142/92 mmHg *HI* (09/06/14 3:58 AM) Blood Pressure [90-140/60-90 mmHg] 16 BRMIN (09/06/14 11:17 AM) 16 BRMIN (09/06/14 7:25 AM) 18 BRMIN (09/06/14 3:58 AM) Respiratory Rate [14-20 BRMIN] 86 bpm (09/06/14 11:17 AM) 89 bpm (09/06/14 7:25 AM) 67 bpm (09/06/14 3:58 AM) Peripheral Pulse Rate [60-100 bpm] 65.909 kg (09/05/14 5:17 PM) Weight 20.85 m2 (09/05/14 5:17 PM) Body Mass Index Problem List Condition Effective Dates Status Health Status Informant ADHD (attention Resolved deficit hyperactivity disorder)(Confirmed) Crohn Resolved disease(Confirmed) Crohns Active disease(Confirmed) CVA (cerebral Resolved vascular accident)(Confirmed) Factor V Resolved Leiden(Confirmed) Stroke(Confirmed) Resolved Allergies, Adverse Reactions, Alerts Substance Reaction Severity Status NKDA Active Toradol Active Medications acetaminophen 650 mg, 2 tab, Route: PO, Drug form: TAB, Q4H, Dosing Weight 65.909, kg, PRN Leidy n 1-3/Temp > 100.4 F, Start date: 09/05/14 17:37:00, Duration: 30 day, Stop date: 10/05/14 17:36:00 Notes: Do not exceed 4 gm/day. (Same as: Tylenol) Start Date: 09/05/14 Stop Date: 09/06/14 Status: Discontinued acetaminophen-hydrocodone 325 mg-10 mg oral tablet 1 tab, Route: PO, Drug Form: TAB, Dosing Weight 65.909, kg, Q4H, PRN Pain Score 4-6, Start date: 09/05/14 17:37:00, Duration: 30 day, Stop date: 10/05/14 17:36: 00 Notes: Do not exceed 4gm/day of acetaminophen. (Same as: [place] 325/10) Start Date: 09/05/14 Stop Date: 09/06/14 Status: Discontinued acetaminophen-hydrocodone 325 mg-5 mg oral tablet 1 tab, Route: PO, Drug Form: TAB, Dosing Weight 65.909, kg, Q4H, PRN Pain Score 1-3, Start date: 09/05/14 17:37:00, Duration: 30 day, Stop date: 10/05/14 17:36: 00 Notes: (Same as: [place] 325/5) Do not exceed 4gm/day of acetaminophen. Start Date: 09/05/14 Stop Date: 09/06/14 Status: Discontinued Adderall XR 30 mg, Route: PO, Drug form: ERCAP, BID, Dosing Weight 65.909, kg, Start date: 0 09/06/14 9:00:00, Duration: 30 day, Stop date: 10/05/14 17:00:00 Start Date: 09/06/14 Stop Date: 09/06/14 Status: Discontinued aspirin 81 mg tablet, enteric coated 81 mg, 1 tab, Route: PO, Drug form: ECTAB, Daily, Dosing Weight 65.909, kg, Star t date: 09/06/14 9:00:00, Duration: 30 day, Stop date: 10/05/14 9:00:00 Notes: Do not crush or chew.(Same As: Ecotrin) Start Date: 09/06/14 Stop Date: 09/06/14 Status: Discontinued Ativan 1 mg, 0.5 mL, Route: IVP, Drug form: INJ, ONCE, Dosing Weight 65.909, kg, PRN An xiety, if needed in MRI, Start date: 09/05/14 21:01:00 Notes: (Same as: Ativan) Start Date: 09/05/14 Stop Date: 09/06/14 Status: Discontinued Ativan 1 mg, 0.5 mL, Route: IVP, Drug form: INJ, ONCE, Dosing Weight 65.909, kg, PRN as needed for anxiety, Start date: 09/05/14 21:01:00 Notes: (Same as: Ativan) Start Date: 09/05/14 Stop Date: 09/05/14 Status: Completed Benadryl 25 mg, 0.5 mL, Route: IVP, Drug form: INJ, ONCE, Dosing Weight 65.909, kg, Start date: 09/05/14 18:09:00, Stop date: 09/05/14 18:09:00 Notes: (Same as: Benadryl) Start Date: 09/05/14 Stop Date: 09/05/14 Status: Completed docusate 100 mg, 1 cap, Route: PO, Drug form: CAP, BID, Dosing Weight 65.909, kg, Start d ate: 09/06/14 9:00:00, Duration: 30 day, Stop date: 10/05/14 17:00:00 Notes: (Same as: Colace) (Do Not Crush) Start Date: 09/06/14 Stop Date: 09/06/14 Status: Discontinued methotrexate 2.5 mg, 1 tab, Route: PO, Drug form: TAB, Daily, Dosing Weight 65.909, kg, Start date: 09/06/14 9:00:00, Duration: 30 day, Stop date: 10/05/14 9:00:00 Notes: (Same as:Methotrexate Sodium)Chemotherapy agent/Handle with caution Start Date: 09/06/14 Stop Date: 09/06/14 Status: Discontinued morphine Sulfate 2 mg, 1 mL, Route: IVP, Drug form: INJ, Q4H, Dosing Weight 65.909, kg, PRN Pain Score 4-6, Start date: 09/05/14 17:37:00, Duration: 30 day, Stop date: 10/05/14 17:36:00 Notes: (Same as:MORPhine Sulfate) Start Date: 09/05/14 Stop Date: 09/06/14 Status: Discontinued normal saline 0.9% IV 1,000 mL 1,000 mL, Rate: 100 ml/hr, Infuse over: 10 hr, Route: IV, Dosing Weight 65.909 k g, Total Volume: 1,000, Start date: 09/05/14 18:07:00, Duration: 30 day, Stop da te: 10/05/14 18:06:00 Start Date: 09/05/14 Stop Date: 09/06/14 Status: Discontinued ondansetron 4 mg, 2 mL, Route: IVP, Drug form: INJ, ONCE, Dosing Weight 65.909, kg, PRN Naus ea & Vomiting, Start date: 09/05/14 17:37:00 Notes: (Same as: Zofran) MEDICATION WASTE Product Size: 4 mgProduct Was kavya: ___ mg Start Date: 09/05/14 Stop Date: 09/06/14 Status: Discontinued Patients home med"adderall XR 30 mg" Patients home med"adderall XR 30 mg", 1 tab, Drug form: MISC, Route: PO, BID, 9:00:00, Duration: 30 day, Stop date: 10/05/14 17:00:00 Start Date: 09/06/14 Stop Date: 09/06/14 Status: Discontinued Phenergan + Sodium Chloride 0.9% IV 50 mL 12.5 mg, 0.5 mL, Route: IVPB, ONCE, Dosing Weight 65.909, kg, Start date: 18:09:00, Stop date: 09/05/14 18:09:00 Notes: Do not give IV push. (Same as: Phenergan) Start Date: 09/05/14 Stop Date: 09/05/14 Status: Completed Plavix 75 mg, 1 tab, Route: PO, Drug form: TAB, Daily, Dosing Weight 65.909, kg, Start date: 09/06/14 9:00:00, Duration: 30 day, Stop date: 10/05/14 9:00:00 Notes: (Same As: Plavix) Start Date: 09/06/14 Stop Date: 09/06/14 Status: Discontinued Saline Flush 0.9% 10 ml, Route: IVP, Drug Form: INJ, Dosing Weight 65.909, kg, PRN, PRN Line Flush , Start date: 09/05/14 17:37:00, Duration: 30 day, Stop date: 10/05/14 17:36:00 Notes: (Same as: BD Posiflush) Start Date: 09/05/14 Stop Date: 09/06/14 Status: Discontinued Results ELECTROLYTES Most recent to 1 oldest [Reference Range]: Sodium Lvl [135-145 141 mEq/L mEq/L] (09/05/14 6:13 PM) Potassium Lvl 4.1 mEq/L [3.5-5.1 mEq/L] (09/05/14 6:13 PM) Chloride Lvl [95-109 104 mEq/L mEq/L] (09/05/14 6:13 PM) CO2 [24-32 mEq/L] 32 mEq/L (09/05/14 6:13 PM) AGAP [10.0-20.0 9.1 mEq/L mEq/L] *LOW* (09/05/14 6:13 PM) CHEM PANEL Most recent to 1 oldest [Reference Range]: Creatinine Lvl 0.7 mg/dL [0.5-1.4 mg/dL] (09/05/14 6:13 PM) eGFR 123 mL/min/1.73m2 1 *NA* (09/05/14 6:13 PM) BUN [7-22 mg/dL] 9 mg/dL (09/05/14 6:13 PM) B/C Ratio [6-25] 13 (09/05/14 6:13 PM) Glucose Lvl [70-99 129 mg/dL 2 mg/dL] *HI* (09/05/14 6:13 PM) Total Protein 6.1 g/dL [6.4-8.4 g/dL] *LOW* (09/05/14 6:13 PM) Albumin Lvl [3.5-5.0 3.3 g/dL g/dL] *LOW* (09/05/14:13 PM) Globulin [2.0-4.0 2.8 g/dL g/dL] (09/05/14 6:13 PM) A/G Ratio [0.7-1.6] 1.2 (09/05/14:13 PM) Calcium Lvl 8.5 mg/dL [8.5-10.5 mg/dL] (09/05/14:13 PM) Phosphorus [2.5-4.5 3.7 mg/dL mg/dL] (09/05/1413 PM) Magnesium Lvl 2.1 mg/dL [1.8-2.4 mg/dL] (09/05/14:13 PM) ALT [0-65 unit/L] 58 unit/L (09/05/1413 PM) AST [0-37 unit/L] 21 unit/L (09/05/14:13 PM) Alk Phos [39-136 50 unit/L unit/L] (09/05/14:13 PM) Bili Total [0.2-1.3 0.1 mg/dL mg/dL] *LOW* (09/05/14 6:13 PM) 1Result Comment: The eGFR is calculated [...] be mul tiplied by the estimated BMI. 2Interpretive Data: Adult reference range values reflect the clinical guidelines of the [place] [employer]. HEMATOLOGY Most recent to 1 oldest [Reference Range]: WBC [3.7-10.4 K/CMM] 9.1 K/CMM (09/05/14 6:13 PM) RBC [4.70-6.10 3.66 M/CMM M/CMM] *LOW* (09/05/14 6:13 PM) Hgb [14.0-18.0 g/dL] 10.2 g/dL *LOW* (09/05/14:13 PM) Hct [42.0-54.0 %] 30.4 % *LOW* (09/05/14:13 PM) MCV [80.0-94.0 fL] 83.0 fL (09/05/14:13 PM) MCH [27.0-31.0 pg] 27.8 pg (09/05/14:13 PM) MCHC [32.0-36.0 33.5 g/dL g/dL] (09/05/14:13 PM) RDW [11.5-14.5 %] 17.4 % *HI* (09/05/14:13 PM) Platelet [133-450 312 K/CMM K/CMM] (09/05/14 6:13 PM) MPV [7.4-10.4 fL] 8.2 fL (09/05/14 6:13 PM) Segs [45.0-75.0 %] 92.5 % *HI* (09/05/14:13 PM) Lymphocytes 3.3 % [20.0-40.0 %] *LOW* (09/05/14:13 PM) Monocytes [2.0-12.0 4.2 % %] (09/05/14 6:13 PM) Segs-Bands # 8.4 K/CMM [1.5-8.1 K/CMM] *HI* (09/05/14 6:13 PM) Lymphocytes # 0.3 K/CMM [1.0-5.5 K/CMM] *LOW* (09/05/14 6:13 PM) Monocytes # [0.0-0.8 0.4 K/CMM K/CMM] (7/10/15 6:13 PM) PT [12.0-14.7 12.8 seconds seconds] (09/05/14 6:13 PM) INR [0.85-1.17] 0.96 3 (09/05/14 6:13 PM) PTT [22.9-35.8 25.7 seconds 4 seconds] (09/05/14 6:13 PM) 3Interpretive Data: RECOMMENDED RANGES FOR PROTIME INR: 2.0-3.0 for most medical and surgical thromboembolic states. 2.5-3.5 for artificial heart valves and recurrent embolism. INR SHOULD BE USED ONLY FOR PATIENTS ON STABLE ANTICOAGULANT THERAPY. 4Interpretive Data: Heparin Therapeutic Range: 57 - 92 Seconds Immunizations No data available for this section Procedures Procedure Date Related Diagnosis Body Site Resection of gastric ulcer by cautery Social History Social History Type Response Smoking Status Current every day smoker; Type: Cigarettes; Exposure to Tobacco Smoke None; Cigarette Smoking Last 365 Days Yes; Reg Smoking Cessation Counseling Yes Assessment and Plan Extracted from: Title: Clinical Document Author: Wicho Castro MD Date: 09/06/14 Progress Note Nephrology [facility] SUBJECTIVE Patient feeling better, no chest pain/nausea/vomiting OBJECTIVE Vital Signs (last 24 hrs) Last Charted Temp Oral97.4 DegF (SEP 06) Heart Rate [id number] bpm (SEP 06) Resp Rate 16 BRMIN (SEP 06) NUM319 mmHg (SEP 06) DBP77 mmHg (SEP 06) Yrwjcv36.909 kg (SEP 05) Apvwpx771.8 cm (SEP 05) BMI20.85 (SEP 05) Input/Output RecordInOutBal 07/1124hr Tot 0 0 0 07/1024hr Tot 288 0 288 Scheduled Meds (6):amphetamine-dextroamphetamine (Adderall XR), aspirin (aspirin 81 mg tablet, enteric coated), clopidogrel (Plavix), docusate, methotrexate, non-formulary (Patients home med"adderall XR 30 mg") Unscheduled Meds: None PRN Meds (5):acetaminophen-hydrocodone (acetaminophen-hydrocodone 325 mg-5 mg oral tablet), acetaminophen-hydrocodone (acetaminophen-hydrocodone 325 mg-10 mg oral tablet), acetaminophen, morphine Sulfate, sodium chloride (Saline Flush 0.9%) One Time Meds (2):(Completed) diphenhydrAMINE (Benadryl), (Completed) promethazine + Sodium Chloride 0.9% IV 50 mL (Phenergan + Sodium Chloride 0.9% IV 50 mL) Continuous Infusions: None Physical Exam: Gen: NAD, AAOx3 HEENT: MMM, anicteric Neck: supple, no JVD CVS: RRR no m/r/g Lungs: CTA bilaterally, no rales or rhonchi Abd: soft, nontender, nondistended Extremities: no clubbing/cyanosis or edema bilateral LE or upper extremities Skin: no rash or petechiae Labs (Last four charted values) WBC 9.1(SEP 05) Hgb L 10.2(SEP 05) Hct L 30.4(SEP 05) Plt 312(SEP 05) Na 141(SEP 05) K 4.1(SEP 05) CO2 32(SEP 05) Cl 104(SEP 05) Cr 0.7(SEP 05) BUN 9(SEP 05) Glucose Random H 129(SEP 05) Mg 2.1(SEP 05) Phos 3.7(SEP 05) Ca 8.5(SEP 05) PT 12.8(SEP 05) INR 0.96(SEP 05) PTT 25.7(SEP 05) IMPRESSION: 1. Left sided weakness 2. Crohn's disease 3. ?hx of Factor V Leiden PLAN: 1. reviewed Neurology note, no further sytmpmots. 2. MRi reviewed 3. continue aspirin/plavix 4. continue methotrexate per GI service
--- OUTSIDE RECORDS SUMMARY | 2018-06-19 18:21 | XMS REPORT | Summary of Care ---
Author Author [facility] Organization [facility] Address Unknown Phone Unavailable Encounter ARRON Cullen(GUILHERME) [id number] Date(s): 03/02/15 - 03/02/15 [facility] [address] [employer] provided by [employer] [place] [address]- Discharge Disposition: Against Medical Advise Attending Physician: Flor Macedo MD Vital Signs 1 2 3 Most recent to oldest [Reference Range]: 177.8 cm (03/02/15 7:59 AM) Height 97.6 DegF (03/02/15 9:52 AM) 98.1 DegF (03/02/15 7:59 AM) Temperature Oral [96.4-99.1 DegF] 148/92 mmHg *HI* (03/02/15 12:15 PM) 151/94 mmHg *HI* (03/02/15 9:52 AM) 150/98 mmHg *HI* (03/02/15 8:05 AM) Blood Pressure [90-140/60-90 mmHg] 18 BRMIN (03/02/15 12:15 PM) 18 BRMIN (03/02/15 9:52 AM) 20 BRMIN (03/02/15 8:05 AM) Respiratory Rate [14-20 BRMIN] 105 bpm *HI* (03/02/15 8:05 AM) 116 bpm *HI* (03/02/15 7:59 AM) Peripheral Pulse Rate [60-100 bpm] 68.182 kg (03/02/15 7:59 AM) Weight 21.57 m2 (03/02/15 7:59 AM) Body Mass Index Problem List Condition Effective Dates Status Health Status Informant ADHD (attention Resolved deficit hyperactivity disorder)(Confirmed) Cancer(Confirmed) Active Crohn Resolved disease(Confirmed) Crohns Resolved disease(Confirmed) Crohns Active disease(Confirmed) CVA (cerebral Resolved vascular accident)(Confirmed) Factor V Resolved Leiden(Confirmed) Stroke(Confirmed) Resolved Allergies, Adverse Reactions, Alerts Substance Reaction Severity Status NKDA Active Toradol Active Medications cefepime 1 gm, Route: IVPB, ONCE, Dosing Weight 68.182, kg, Priority: STAT, Start date: 0 03/02/15 8:22:00, Stop date: 03/02/15 8:22:00 Start Date: 03/02/15 Stop Date: 03/02/15 Status: Completed clindamycin + Sodium Chloride 0.9% IV 100 mL 600 mg, 4 mL, Route: IVPB, ONCE, Dosing Weight 68.182, kg, Priority: STAT, Start date: 03/02/15 8:44:00, Stop date: 03/02/15 8:44:00 Notes: (clindamycin 150 mg/1 ml (600 mg/4 ml VL) INJ) (Same As: Cleocin) Start Date: 03/02/15 Stop Date: 03/02/15 Status: Completed clindamycin 300 mg oral capsule 300 mg=1 cap, PO, Q6H, X 10 day, # 40 cap, 0 Refill(s) Start Date: 03/02/15 Stop Date: 03/12/15 Status: Ordered Dilaudid 2 mg, Route: IV, ONCE, Dosing Weight 68.182, kg, Start date: 03/02/15 9:56:00, S top date: 03/02/15 9:56:00 Start Date: 03/02/15 Stop Date: 03/02/15 Status: Completed Dilaudid 2 mg, Route: IV, ONCE, Dosing Weight 68.182, kg, Start date: 03/02/15 10:29:00, Stop date: 03/02/15 10:29:00 Start Date: 03/02/15 Stop Date: 03/02/15 Status: Completed lidocaine 4% mucous membrane solution 5 mL, Route: TOP, Dosing Weight 68.182, kg, ONCE, Start date: 03/02/15 8:52:00, Stop date: 03/02/15 8:52:00 Start Date: 03/02/15 Stop Date: 03/02/15 Status: Completed morphine Sulfate 8 mg, Route: IVP, Drug form: INJ, ONCE, Dosing Weight 68.182, kg, Priority: STAT , Start date: 03/02/15 8:44:00, Stop date: 03/02/15 8:44:00 Start Date: 03/02/15 Stop Date: 03/02/15 Status: Completed Motrin 800 mg, 1 tab, Route: PO, Drug form: TAB, ONCE, Dosing Weight 68.182, kg, Priori ty: STAT, Start date: 03/02/15 12:00:00, Stop date: 03/02/15 12:00:00 Notes: (Same as: Motrin)"Do Not Crush" Take with food. Start Date: 03/02/15 Stop Date: 03/02/15 Status: Completed Ofirmev 1,000 mg, Route: IV, Drug form: INJ, ONCE, Dosing Weight 68.182, kg, PRN Pain Sc ore 1-3, for > or=50 kg, Start date: 03/02/15 10:26:00 Start Date: 03/02/15 Stop Date: 03/02/15 Status: Completed Omnipaque 350mg/ml 95 mL, Route: IVP, Drug Form: SOLN, Dosing Weight 68.182, kg, ONCALL, STAT, Star t date: 03/02/15 10:35:00, Duration: 1 doses or times, Dose=2.2ml/kg, Max dose= 100ml -- "To be infused by Radiology Staff ONLY" Start Date: 03/02/15 Stop Date: 03/02/15 Status: Completed Phenergan 12.5 mg, Route: IVPB, ONCE, Dosing Weight 68.182, kg, Priority: STAT, Start date : 03/02/15 9:56:00, Stop date: 03/02/15 9:56:00 Start Date: 03/02/15 Stop Date: 03/02/15 Status: Completed potassium chloride 20 mEq/15 mL oral liquid 40 mEq, 15 mL, Route: PO, Drug form: LIQ, ONCE, Dosing Weight 68.182, kg, Priori ty: STAT, Start date: 03/02/15 10:11:00, Stop date: 03/02/15 10:11:00 Start Date: 03/02/15 Stop Date: 03/02/15 Status: Completed Saline Flush 0.9% 10 mL, Route: MISC, Drug Form: INJ, Dosing Weight 68.182, kg, PRN, PRN Line Flus h, Start date: 03/02/15 8:22:00, Duration: 30 day, Stop date: 04/01/15 8:21:00 Notes: (Same as: BD Posiflush) Start Date: 03/02/15 Stop Date: 03/02/15 Status: Discontinued Sodium Chloride 0.9% IV (Sodium Chloride 0.9% (Bolus) IV) 2,045.46 mL, 2,000 ml/hr, Route: IV, ONCE, Priority: STAT, Dosing Weight 68.182 kg, Start date: 03/02/15 8:22:00, Duration: 1 doses or times, Stop date: 6 8:22:00 Start Date: 03/02/15 Stop Date: 03/02/15 Status: Completed Unasyn 3 gm, Route: IVPB, ONCE, Dosing Weight 68.182, kg, Priority: STAT, Start date: 0 03/02/15 8:29:00, Stop date: 03/02/15 8:29:00 Start Date: 03/02/15 Stop Date: 03/02/15 Status: Discontinued vancomycin 1.25 gm, Route: IVPB, ONCE, Dosing Weight 68.182, kg, Time Critical Medication, Priority: STAT, Start date: 03/02/15 8:22:00, Stop date: 03/02/15 8:22:00 Start Date: 03/02/15 Stop Date: 03/02/15 Status: Discontinued Zofran 4 mg, Route: IVP, Drug form: INJ, ONCE, Dosing Weight 68.182, kg, Priority: STAT , Start date: 03/02/15 8:45:00, Stop date: 03/02/15 8:45:00 Start Date: 03/02/15 Stop Date: 03/02/15 Status: Completed Results ELECTROLYTES Most recent to 1 oldest [Reference Range]: Sodium Lvl [135-145 140 mEq/L mEq/L] (03/02/15 9:01 AM) Potassium Lvl 3.1 mEq/L [3.5-5.1 mEq/L] *LOW* (03/02/15 9:01 AM) Chloride Lvl [95-109 103 mEq/L mEq/L] (03/02/15 9:01 AM) CO2 [24-32 mEq/L] 26 mEq/L (03/02/15 9:01 AM) AGAP [10.0-20.0 14.1 mEq/L mEq/L] (03/02/15 9:01 AM) CHEM PANEL Most recent to 1 oldest [Reference Range]: Creatinine Lvl 0.95 mg/dL [0.50-1.40 mg/dL] (03/02/15 9:01 AM) eGFR 104 mL/min/1.73m2 1 *NA* (03/02/15 9:01 AM) BUN [7-22 mg/dL] 8 mg/dL (03/02/15 9:01 AM) B/C Ratio [6-25] 8 (03/02/15 9:01 AM) Glucose Lvl [70-99 112 mg/dL mg/dL] *HI* (03/02/15 9:01 AM) Total Protein 7.4 g/dL [6.4-8.4 g/dL] (03/02/15 9:01 AM) Albumin Lvl [3.5-5.0 3.8 g/dL g/dL] (03/02/15 9:01 AM) Globulin [2.0-4.0 3.6 g/dL g/dL] (03/02/15 9:01 AM) A/G Ratio [0.7-1.6] 1.1 (03/02/15 9:01 AM) Calcium Lvl 9.1 mg/dL [8.5-10.5 mg/dL] (03/02/15 9:01 AM) ALT [0-65 unit/L] 32 unit/L (03/02/15 9:01 AM) AST [0-37 unit/L] 17 unit/L (03/02/15 9:01 AM) Alk Phos [39-136 76 unit/L unit/L] (03/02/15 9:01 AM) Bili Total [0.2-1.3 0.3 mg/dL mg/dL] (03/02/15 9:01 AM) Lactic Acid Lvl 2.3 mMol/L [0.5-2.2 mMol/L] *HI* (03/02/15 9:01 AM) Lactic Acid WB 1.8 mmol/L [0.5-2.2 mmol/L] (03/02/15 9:01 AM) 1Result Comment: The eGFR is calculated using [...] be mul tiplied by the estimated BMI. HEMATOLOGY Most recent to 1 oldest [Reference Range]: WBC [3.7-10.4 K/CMM] 7.4 K/CMM (03/02/15 9:01 AM) RBC [4.70-6.10 4.27 M/CMM M/CMM] *LOW* (03/02/15 9:01 AM) Hgb [14.0-18.0 g/dL] 11.4 g/dL *LOW* (03/02/15 9:01 AM) Hct [42.0-54.0 %] 35.7 % *LOW* (03/02/15 9:01 AM) MCV [80.0-94.0 fL] 83.6 fL (03/02/15 9:01 AM) MCH [27.0-31.0 pg] 26.6 pg *LOW* (03/02/15 9:01 AM) MCHC [32.0-36.0 31.8 g/dL g/dL] *LOW* (03/02/15 9:01 AM) RDW [11.5-14.5 %] 15.6 % *HI* (03/02/15 9:01 AM) Platelet [133-450 275 K/CMM K/CMM] (03/02/15 9:01 AM) MPV [7.4-10.4 fL] 8.0 fL (03/02/15 9:01 AM) Segs [45.0-75.0 %] 82.3 % *HI* (03/02/15 9:01 AM) Lymphocytes 6.4 % [20.0-40.0 %] *LOW* (03/02/15 9:01 AM) Monocytes [2.0-12.0 10.0 % %] (03/02/15 9:01 AM) Eosinophils [0.0-4.0 0.8 % %] (03/02/15 9:01 AM) Basophils [0.0-1.0 0.5 % %] (03/02/15 9:01 AM) Segs-Bands # 6.1 K/CMM [1.5-8.1 K/CMM] (03/02/15 9:01 AM) Lymphocytes # 0.5 K/CMM [1.0-5.5 K/CMM] *LOW* (03/02/15 9:01 AM) Monocytes # [0.0-0.8 0.7 K/CMM K/CMM] (03/02/15 9:01 AM) Eosinophils # 0.1 K/CMM [0.0-0.5 K/CMM] (03/02/15 9:01 AM) PT [12.0-14.7 14.1 seconds seconds] (03/02/15 9:01 AM) INR [0.85-1.17] 1.06 (03/02/15 9:01 AM) PTT [22.9-35.8 37.7 seconds seconds] *HI* (03/02/15 9:01 AM) Immunizations No data available for this section [...]
--- OUTSIDE RECORDS SUMMARY | 2018-06-19 18:21 | XMS REPORT | Continuity of Care Document ---
Author Author [facility] Address Unknown Phone Unavailable Problems Problem Status Onset Date Classification Date Reported Comments Source Discharge Diagnosis: Chronic nausea 05/24/2015 05/27/2015 [facility] VOMITING BLOOD/BLURRED VISION Active 05/24/2015 [facility] FACILAL PAIN Active 03/09/2015 [facility] RIGHT SIDE FACIAL SWELLING Active 03/02/2015 [facility] Discharge Diagnosis: Abdominal pain 01/12/2015 01/15/2015 [facility] FEVER/ VOMITTING Active 01/11/2015 [facility] LT SIDED WEAKNESS Active 09/05/2014 [facility] ACUTE CVA Active 08/14/2014 [facility] Discharge Diagnosis: Headache 08/12/2014 08/15/2014 [facility] STOKE SYMPTONS Active 08/12/2014 [facility] Crohns disease Resolved Problem 05/27/2015 [facility] Stroke Resolved Problem 05/27/2015 [facility] ADHD (<span ID="[id number]">Confirmed</span>) Resolved Problem 05/27/2015 [facility] Cancer Active Problem 05/27/2015 [facility] Crohn disease Resolved Problem 05/27/2015 [facility] CVA (<span ID="[id number]">Confirmed</span>) Resolved Problem 05/27/2015 [facility] Factor V Leiden Resolved Problem 05/27/2015 [facility] ADMINISTRTVE ENCOUNT NOS Active [facility] MALAISE AND FATIGUE NEC Active [facility] Medications Medication Details Route Status Patient Instructions Ordering Provider Order Date Source Zofran ODT 4 mg, 1 tab, Route: PO, Drug form: TABDIS, ONCE, Dosing Weight 68.182, kg, Priority: STAT, Start date: 05/24/15 15:58:00, Stop date: 05/24/15 15:58:00Notes: (Same as: Zofran ODT) Inactive 05/24/2015 [facility] clindamycin 300 mg oral capsule 300 mg=1 cap, PO, Q6H, X 10 day, # 40 cap, 0 Refill(s) Active 03/02/2015 [facility] Motrin 800 mg, 1 tab, Route: PO, Drug form: TAB, ONCE, Dosing Weight 68.182, kg, Priority: STAT, Start date: 03/02/15 12:00:00, Stop date: 03/02/15 12:00:00Notes: (Same as: Motrin) "Do Not Crush" Take with food. Inactive 03/02/2015 [facility] Iohexol 95 mL, Route: IVP, Drug Form: SOLN, Dosing Weight 68.182, kg, ONCALL, STAT, Start date: 03/02/15 10:35:00, Duration: 1 doses or times, Dose=2.2ml/kg, Max [id number]=[id number] -- "To be infused by Radiology Staff ONLY" Inactive 03/02/2015 [facility] Dilaudid 2 mg, Route: IV, ONCE, Dosing Weight 68.182, kg, Start date: 03/02/15 10:29:00, Stop date: 03/02/15 10:29:00 Inactive 03/02/2015 [facility] Ofirmev 1,000 mg, Route: IV, Drug form: INJ, ONCE, Dosing Weight 68.182, kg, PRN Pain Score 1-3, for > or=50 kg, Start date: 03/02/15 10:26:00 Inactive 03/02/2015 [facility] Potassium Chloride 1.33 MEQ/ML Oral Solution 40 mEq, 15 mL, Route: PO, Drug form: LIQ, ONCE, Dosing Weight 68.182, kg, Priority: STAT, Start date: 03/02/15 10:11:00, Stop date: 03/02/15 10:11:00 Inactive 03/02/2015 [facility] Phenergan 12.5 mg, Route: IVPB, ONCE, Dosing Weight 68.182, kg, Priority: STAT, Start date: 03/02/15 9:56:00, Stop date: 03/02/15 9:56:00 Inactive 03/02/2015 [facility] Dilaudid 2 mg, Route: IV, ONCE, Dosing Weight 68.182, kg, Start date: 03/02/15 9:56:00, Stop date: 03/02/15 9:56:00 Inactive 03/02/2015 [facility] lidocaine 4% mucous membrane solution 5 mL, Route: TOP, Dosing Weight 68.182, kg, ONCE, Start date: 03/02/15 8:52:00, Stop date: 03/02/15 8:52:00 Inactive 03/02/2015 [facility] Zofran 4 mg, Route: IVP, Drug form: INJ, ONCE, Dosing Weight 68.182, kg, Priority: STAT, Start date: 03/02/15 8:45:00, Stop date: 03/02/15 8:45:00 Inactive 03/02/2015 [facility] Morphine 8 mg, Route: IVP, Drug form: INJ, ONCE, Dosing Weight 68.182, kg, Priority: STAT, Start date: 03/02/15 8:44:00, Stop date: 03/02/15 8:44:00 Inactive 03/02/2015 [facility] Clindamycin 600 mg, 4 mL, Route: IVPB, ONCE, Dosing Weight 68.182, kg, Priority: STAT, Start date: 03/02/15 8:44:00, Stop date: 03/02/15 8:44:00Notes: (clindamycin 150 mg/1 ml (600 mg/4 ml VL) INJ) (Same As: Cleocin) Inactive 03/02/2015 [facility] Unasyn 3 gm, Route: IVPB, ONCE, Dosing Weight 68.182, kg, Priority: STAT, Start date: 03/02/15 8:29:00, Stop date: 03/02/15 8:29:00 Inactive 03/02/2015 [facility] Vancomycin 1.25 gm, Route: IVPB, ONCE, Dosing Weight 68.182, kg, Time Critical Medication, Priority: STAT, Start date: 03/02/15 8:22:00, Stop date: 03/02/15 8:22:00 Inactive 03/02/2015 [facility] cefepime 1 gm, Route: IVPB, ONCE, Dosing Weight 68.182, kg, Priority: STAT, Start date: 03/02/15 8:22:00, Stop date: 03/02/15 8:22:00 Inactive 03/02/2015 [facility] Sodium Chloride 0.154 MEQ/ML Injectable Solution 2,045.46 mL, 2,000 ml/hr, Route: IV, ONCE, Priority: STAT, Dosing Weight 68.182 kg, Start date: 03/02/15 8:22:00, Duration: 1 doses or times, Stop date: 03/02/15 8:22:00 Inactive 03/02/2015 [facility] Saline Flush 0.9% 10 mL, Route: MISC, Drug Form: INJ, Dosing Weight 68.182, kg, PRN, PRN Line Flush, Start date: 03/02/15 8:22:00, Duration: 30 day, Stop date: 04/01/15 8:21:00Notes: (Same as: BD Posiflush) Inactive 03/02/2015 [facility] Dilaudid 0.5 mg, 0.25 mL, Route: IVP, Drug form: INJ, ONCE, Dosing Weight 63.636, kg, Priority: STAT, Start date: 01/12/15 1:24:00, Stop date: 01/12/15 1:24:00Notes: Same as: Dilaudid Inactive 01/12/2015 [facility] Phenergan 25 mg, 1 mL, Route: IVPB, Drug form: INJ, ONCE, Dosing Weight 63.636, kg, Priority: STAT, Start date: 01/12/15 1:23:00, Stop date: 01/12/15 1:23:00Notes: Do not give IV push. (Same as: Phenergan) Inactive 01/12/2015 [facility] Sodium Chloride 0.154 MEQ/ML Injectable Solution 1,000 mL, Route: IV, Drug form: INJ, ONCE, Priority: STAT, Dosing Weight 63.636 kg, Start date: 01/12/15 1:23:00, Duration: 1 doses or times, Stop date: 01/12/15 1:23:00 Inactive 01/12/2015 [facility] pantoprazole 40 mg, Route: IVP, Drug form: INJ, ONCE, Dosing Weight 63.636, kg, Priority: STAT, Start date: 01/12/15 1:23:00, Stop date: 01/12/15 1:23:00Notes: For IV push reconstitute with 10 ml 0.9% sodium chloride and push over 2 minutes. (Same as: Protonix) Inactive 01/12/2015 [facility] Methotrexate 2.5 mg, 1 tab, Route: PO, Drug form: TAB, Daily, Dosing Weight 65.909, kg, Start date: 09/06/14 9:00:00, Duration: 30 day, Stop date: 10/05/14 9:00:00Notes: (Same as:Methotrexate Sodium) Chemotherapy agent/Handle with caution Inactive 09/06/2014 [facility] Patients home med"adderall XR 30 mg" Patients home med"adderall XR 30 mg", 1 tab, Drug form: MISC, Route: PO, BID, 09/06/14 9:00:00, Duration: 30 day, Stop date: 10/05/14 17:00:00 Inactive 09/06/2014 [facility] Adderall XR 30 mg, Route: PO, Drug form: ERCAP, BID, Dosing Weight 65.909, kg, Start date: 09/06/14 9:00:00, Duration: 30 day, Stop date: 10/05/14 17:00:00 Inactive 09/06/2014 [facility] Aspirin 81 MG Enteric Coated Tablet 81 mg, 1 tab, Route: PO, Drug form: ECTAB, Daily, Dosing Weight 65.909, kg, Start date: 09/06/14 9:00:00, Duration: 30 day, Stop date: 10/05/14 9:00:00Notes: Do not crush or chew. (Same As: Ecotrin) Inactive 09/06/2014 [facility] Plavix 75 mg, 1 tab, Route: PO, Drug form: TAB, Daily, Dosing Weight 65.909, kg, Start date: 09/06/14 9:00:00, Duration: 30 day, Stop date: 10/05/14 9:00:00Notes: (Same As: Plavix) Inactive 09/06/2014 [facility] Docusate 100 mg, 1 cap, Route: PO, Drug form: CAP, BID, Dosing Weight 65.909, kg, Start date: 09/06/14 9:00:00, Duration: 30 day, Stop date: 10/05/14 17:00:00Notes: (Same as: Colace) (Do Not Crush) Inactive 09/06/2014 [facility] Ativan 1 mg, 0.5 mL, Route: IVP, Drug form: INJ, ONCE, Dosing Weight 65.909, kg, PRN Anxiety, if needed in MRI, Start date: 09/05/14 21:01:00Notes: (Same as: Ativan) No Longer Active 09/06/2014 [facility] Phenergan 12.5 mg, 0.5 mL, Route: IVPB, ONCE, Dosing Weight 65.909, kg, Start date: 09/05/14 18:09:00, Stop date: 09/05/14 18:09:00Notes: Do not give IV push. (Same as: Phenergan) Inactive 09/05/2014 [facility] Benadryl 25 mg, 0.5 mL, Route: IVP, Drug form: INJ, ONCE, Dosing Weight 65.909, kg, Start date: 09/05/14 18:09:00, Stop date: 09/05/14 18:09:00Notes: (Same as: Benadryl) Inactive 09/05/2014 [facility] normal saline 0.9% IV 1,000 mL 1,000 mL, Rate: 100 ml/hr, Infuse over: 10 hr, Route: IV, Dosing Weight 65.909 kg, Total Volume: 1,000, Start date: 09/05/14 18:07:00, Duration: 30 day, Stop date: 10/05/14 18:06:00 No Longer Active 09/05/2014 [facility] Saline Flush 0.9% 10 ml, Route: IVP, Drug Form: INJ, Dosing Weight 65.909, kg, PRN, PRN Line Flush, Start date: 09/05/14 17:37:00, Duration: 30 day, Stop date: 10/05/14 17:36:00Notes: (Same as: BD Posiflush) No Longer Active 09/05/2014 [facility] Acetaminophen 325 MG / Hydrocodone Bitartrate 5 MG Oral Tablet 1 tab, Route: PO, Drug Form: TAB, Dosing Weight 65.909, kg, Q4H, PRN Pain Score 1-3, Start date: 09/05/14 17:37:00, Duration: 30 day, Stop date: 10/05/14 17:36:00Notes: (Same as: [place] 325/5) Do not exceed 4gm/day of acetaminophen. No Longer Active 09/05/2014 [facility] Acetaminophen 325 MG / Hydrocodone Bitartrate 10 MG Oral Tablet 1 tab, Route: PO, Drug Form: TAB, Dosing Weight 65.909, kg, Q4H, PRN Pain Score 4-6, Start date: 09/05/14 17:37:00, Duration: 30 day, Stop date: 10/05/14 17:36:00Notes: Do not exceed 4gm/day of acetaminophen. (Same as: [place] 325/10) No Longer Active 09/05/2014 [facility] Morphine 2 mg, 1 mL, Route: IVP, Drug form: INJ, Q4H, Dosing Weight 65.909, kg, PRN Pain Score 4-6, Start date: 09/05/14 17:37:00, Duration: 30 day, Stop date: 10/05/14 17:36:00Notes: (Same as:MORPhine Sulfate) No Longer Active 09/05/2014 [facility] Ondansetron 4 mg, 2 mL, Route: IVP, Drug form: INJ, ONCE, Dosing Weight 65.909, kg, PRN Nausea & Vomiting, Start date: 09/05/14 17:37:00Notes: (Same as: Zofran) MEDICATION WASTE Product Size: 4 mg Product Wasted: ___ mg No Longer Active 09/05/2014 [facility] Acetaminophen 650 mg, 2 tab, Route: PO, Drug form: TAB, Q4H, Dosing Weight 65.909, kg, PRN Pain 1-3/Temp > 100.4 F, Start date: 09/05/14 17:37:00, Duration: 30 day, Stop date: 10/05/14 17:36:00Notes: Do not exceed 4 gm/day. (Same as: Tylenol) No Longer Active 09/05/2014 [facility] Tylenol Route: IV, Drug form: INJ, ONCE, Dosing Weight 64.8, kg, Start date: 08/16/14 3:59:00, Stop date: 08/16/14 3:59:00Notes: Infuse over 15 minutes Do not exceed 4gm/day of acetaminophen MEDICATION WASTE Product Size: 1000 mg Product Wasted: ___ mg Inactive 08/16/2014 [facility] clopidogrel 75 MG Oral Tablet [Plavix] 75 mg=1 tab, PO, Daily Active 08/16/2014 [facility] methotrexate 2.5 mg oral tablet 2.5 mg=1 tab, PO, Daily Active 08/16/2014 [facility] 24 HR Amphetamine aspartate 7.5 MG / Amphetamine Sulfate 7.5 MG / Dextroamphetamine saccharate 7.5 MG / Dextroamphetamine Sulfate 7.5 MG Extended Release Capsule [Adderall] 30 mg=1 cap, PO, BID Active 08/16/2014 [facility] Aspirin 81 MG Enteric Coated Tablet 81 mg=1 tab, PO, Daily Active 08/16/2014 [facility] heparin 5,000 unit, 1 mL, Route: SUB-Q, Drug form: INJ, Q8H, Start date: 08/16/14 0:00:00, Duration: 30 day, Stop date: 09/14/14 16:00:00Notes: porcine heparin Inactive 08/16/2014 [facility] Miralax 17 gm, 1 pkt, Route: PO, Drug form: PWDR, Daily, Dosing Weight 64.8, kg, Priority: NOW, Start date: 08/15/14 17:03:00, Duration: 30 day, Stop date: 09/14/14 9:00:00 No Longer Active 08/15/2014 [facility] Aspirin 81 mg, 1 tab, Route: PO, Drug form: CHEWTAB, Daily, Dosing Weight 64.8, kg, Start date: 08/15/14 17:00:00, Duration: 30 day, Stop date: 09/14/14 9:00:00Notes: Take with food. No Longer Active 08/15/2014 [facility] pantoprazole 40 mg, Route: IVP, Drug form: INJ, Daily, Dosing Weight 64.8, kg, Start date: 08/15/14 9:00:00, Duration: 30 day, Stop date: 09/13/14 9:00:00Notes: . (Same as: Protonix) No Longer Active 08/15/2014 [facility] Valproic Acid 100 MG/ML Injectable Solution [Depacon] 500 mg, 5 mL, Route: IVPB, Q6H-02, Dosing Weight 64.8, kg, Priority: STAT, Start date: 08/15/14 8:15:00, Stop date: 08/16/14 4:00:00Notes: Dilute in at least 50ml D5W or NS. Infusion rate=20 mg/min (Same As: Depacon) No Longer Active 08/15/2014 [facility] Solu-Medrol 125 mg, 2 mL, Route: IVP, Drug form: INJ, Q6H- 02, Dosing Weight 64.8, kg, Priority: STAT, Start date: 08/15/14 8:15:00, Duration: 30 day, Stop date: 09/14/14 8:00:00Notes: (Same as:Solu-MEDROL, A-Met hapred) Inactive 08/15/2014 [facility] Sodium Chloride 0.154 MEQ/ML Injectable Solution 1,000 mL, 1,000 ml/hr, Infuse Over: 1 hr, Route: IV, 1,000, Drug form: INJ, ONCE, Priority: STAT, Dosing Weight 64.8 kg, Start date: 08/15/14 8:14:00, Duration: 1 doses or times, Stop date: 08/15/14 8:14:00 Inactive 08/15/2014 [facility] Reglan 10 mg, 2 mL, Route: IVP, Drug form: INJ, Q6H-02, Dosing Weight 64.8, kg, Priority: STAT, Start date: 08/15/14 8:14:00, Stop date: 08/16/14 4:00:00Notes: (Same as: Reglan) No Longer Active 08/15/2014 [facility] Versed 1 mg, Route: IV, Drug form: INJ, PRN, Dosing Weight 64.8, kg, PRN Other -See Comment, Start date: 08/15/14 3:50:00, Duration: 30 day, Stop date: 09/14/14 3:49:00 Inactive 08/15/2014 [facility] Versed 1 mg, 1 mL, Route: IV, Drug form: INJ, ONCE, Dosing Weight 64.8, kg, PRN Agitation, Start date: 08/15/14 0:33:00Notes: (Same as: Versed) MEDICATION WASTE Product Size: 2 mg Product Wasted: ___ mg No Longer Active 08/15/2014 [facility] Iohexol 85 mL, Route: IVP, Drug Form: SOLN, Dosing Weight 64.8, kg, ONCALL, STAT, Start date: 08/15/14 0:14:00, Duration: 1 doses or times, Dose=2.2ml/kg, Max [id number] -- "To be infused by Radiology Staff ONLY"Special Instructions: Dose=2.2ml/kg, Max ekas=[id number] -- "To be infused by Radiology Staff ONLY"Notes: (same as:Omnipaque 350). Inactive 08/15/2014 [facility] Ofirmev Route: IV, Drug form: INJ, ONCE, Dosing Weight 64.8, kg, Start date: 08/14/14 22:30:00, Stop date: 08/14/14 22:30:00Notes: MEDICATION WASTE Product Size: 1000 mg Product Wasted: ___ mg Inactive 08/15/2014 [facility] Saline Flush 0.9% 10 ml, Route: IVP, Drug Form: INJ, Dosing Weight 64.8, kg, Q12H, Start date: 08/14/14 21:00:00, Duration: 30 day, Stop date: 09/13/14 9:00:00Notes: (Same as: BD Posiflush) No Longer Active 08/15/2014 [facility] Docusate 100 mg, 1 cap, Route: PO, Drug form: CAP, Q12H, Dosing Weight 64.8, kg, Start date: 08/14/14 21:00:00, Duration: 30 day, Stop date: 09/13/14 9:00:00Notes: (Same as: Colace) No Longer Active 08/15/2014 [facility] Lipitor 40 mg, 1 tab, Route: PO, Drug form: TAB, Bedtime, Dosing Weight 64.8, kg, Priority: NOW, Start date: 08/14/14 20:59:00, Duration: 30 day, Stop date: 09/12/14 21:00:00Notes: (Same as: Lipitor) No Longer Active 08/15/2014 [facility] Tylenol Route: IV, Drug form: INJ, ONCE, Dosing Weight 64.8, kg, Start date: 08/14/14 20:58:00, Stop date: 08/14/14 20:58:00Notes: MEDICATION WASTE Product Size: 1000 mg Product Wasted: ___ mg Inactive 08/15/2014 [facility] Saline Flush 0.9% 10 ml, Route: IVP, Drug Form: INJ, Dosing Weight 64.8, kg, PRN, PRN Line Flush, Start date: 08/14/14 20:56:00, Duration: 30 day, Stop date: 09/13/14 20:55:00Notes: (Same as: BD Posiflush) No Longer Active 08/15/2014 [facility] Acetaminophen 650 mg, 2 tab, Route: PO, Drug form: TAB, Q4H, Dosing Weight 64.8, kg, PRN Pain 1-3/Temp > 99.5 F, Start date: 08/14/14 20:56:00, Duration: 30 day, Stop date: 09/13/14 20:55:00Notes: Do not exceed 4 gm/day. (Same as: Tylenol) No Longer Active 08/15/2014 [facility] Sodium Chloride 0.154 MEQ/ML Injectable Solution 1,000 mL, Rate: 75 ml/hr, Infuse over: 13.3 hr, Route: IV, Dosing Weight 64.8 kg, Total Volume: 1,000, Start date: 08/14/14 20:56:00, Duration: 30 day, Stop date: 09/13/14 20:55:00 No Longer Active 08/15/2014 [facility] enalapril 0.625 mg, 0.5 mL, Route: IVP, Drug form: INJ, Q6H, Dosing Weight 64.8, kg, PRN Hypertension, Start date: 08/14/14 20:56:00, Duration: 30 day, Stop date: 09/13/14 20:55:00, For SBP > 180mmHg and/or DBP > 105mmHgNotes: (Same as: Vasotec-IV) No Longer Active 08/15/2014 [facility] Labetalol 10 mg, 2 mL, Route: IVP, Drug form: INJ, Q10Min, Dosing Weight 64.8, kg, PRN Hypertension, For SBP > 180 mmHg and/or DBP > 105 mmHg, Priority: Routine, Start date: 08/14/14 20:56:00, Duration: 30 day, Stop date: 09/13/14 20:55:00 No Longer Active 08/15/2014 [facility] Sodium Chloride 0.154 MEQ/ML Injectable Solution 1,000 mL, 1,000 ml/hr, Infuse Over: 1 hr, Route: IV, 1,000, Drug form: INJ, ONCE, Priority: STAT, Dosing Weight 70.455 kg, Start date: 08/12/14 13:01:00, Duration: 1 doses or times, Stop date: 08/12/14 13:01:00 Inactive 08/12/2014 [facility] Benadryl 12.5 mg, 0.25 mL, Route: IVP, Drug form: INJ, ONCE, Dosing Weight 70.455, kg, Priority: STAT, Start date: 08/12/14 13:01:00, Stop date: 08/12/14 13:01:00Notes: (Same as: Benadryl) Inactive 08/12/2014 [facility] Reglan 10 mg, 2 mL, Route: IVP, Drug form: INJ, ONCE, Dosing Weight 70.455, kg, Priority: STAT, Start date: 08/12/14 13:01:00, Stop date: 08/12/14 13:01:00Notes: (Same as: Reglan) Inactive 08/12/2014 [facility] iodixanol 120 mL, Route: IVP, Drug Form: SOLN, Dosing Weight 70.455, kg, ONCALL, STAT, Start date: 08/12/14 12:53:00, Duration: 1 doses or times, Dose=2.2ml/kg, Max rykl=[id number] -- "To be infused by Radiology Staff ONLY"Special Instructions: Dose=2.2ml/kg, Max smcb=[id number] -- "To be infused by Radiology Staff ONLY" Inactive 08/12/2014 [facility] Saline Flush 0.9% 10 mL, Route: IVP, Drug Form: INJ, Dosing Weight 70.455, kg, PRN, PRN Line Flush, Start date: 08/12/14 12:23:00, Duration: 30 day, Stop date: 09/11/14 12:22:00Notes: Same as: BD Posiflush Sterile Inactive 08/12/2014 [facility] Allergies, Adverse Reactions, Alerts Substance Category Reaction Severity Reaction type Status Date Reported Comments Source Toradol Assertion Drug allergy Active [facility] NSAIDs Assertion Drug allergy Active [facility] Immunizations Immunization Date Given Site Status Last Updated Comments Source Results Order Name Results Value Reference Range Date Interpretation Comments Source CHEM PANEL Lactic Acid Lvl 2.1 mMol/L 0.5 - 2.2 05/24/2015 [facility] ELECTROLYTES Potassium Lvl 3.3 meq/L 3.5 - 5.1 05/24/2015 [facility] ELECTROLYTES Chloride Lvl 105 meq/L 95 - 109 05/24/2015 [facility] ELECTROLYTES CO2 30 meq/L 24 - 32 05/24/2015 [facility] ELECTROLYTES Calcium Lvl 9.1 mg/dL 8.5 - 10.5 05/24/2015 [facility] ELECTROLYTES Creatinine Lvl 0.82 mg/dL 0.50 - 1.40 05/24/2015 [facility] ELECTROLYTES Sodium Lvl 143 meq/L 135 - 145 05/24/2015 [facility] ELECTROLYTES Glucose Lvl 82 mg/dL 70 - 99 05/24/2015 [facility] ELECTROLYTES BUN 13 mg/dL 7 - 22 05/24/2015 [facility] ELECTROLYTES eGFR 115 mL/min/1.73m2 05/24/2015 Result Comment: The eGFR is calculated using the [...] from the [employer] Kid[employer] Education Program (NKDEP) which additionally recommends that when the eGFR is used in patients with extremes of body mass index for purposes of drug dosing, the eGFR should be multiplied by the estimated BMI. [facility] ELECTROLYTES ALT 129 unit/L 0 - 65 05/24/2015 [facility] ELECTROLYTES Albumin Lvl 3.6 g/dL 3.5 - 5.0 05/24/2015 [facility] ELECTROLYTES Total Protein 7.1 g/dL 6.4 - 8.4 05/24/2015 [facility] ELECTROLYTES Bili Total 0.2 mg/dL 0.2 - 1.3 05/24/2015 [facility] ELECTROLYTES Alk Phos 135 unit/L 39 - 136 05/24/2015 [facility] ELECTROLYTES AST 32 unit/L 0 - 37 05/24/2015 [facility] ELECTROLYTES AGAP 11.3 meq/L 10.0 - 20.0 05/24/2015 [facility] ELECTROLYTES B/C Ratio 16 6 - 25 05/24/2015 [facility] ELECTROLYTES Globulin 3.5 g/dL 2.0 - 4.0 05/24/2015 [facility] ELECTROLYTES A/G Ratio 1.0 0.7 - 1.6 05/24/2015 [facility] HEMATOLOGY Estimated % Lysis 2.5 % 0.0 - 7.5 05/24/2015 [facility] HEMATOLOGY G-value 11.3 K d/sc 5.0 - 11.6 05/24/2015 [facility] HEMATOLOGY Max Amp 69 mm 52 - 71 05/24/2015 [facility] HEMATOLOGY K-time 1.1 min 0.6 - 2.3 05/24/2015 [facility] HEMATOLOGY Angle 77 degrees 64 - 80 05/24/2015 [facility] HEMATOLOGY R-time 0.8 min 0.4 - 0.7 05/24/2015 [facility] HEMATOLOGY ACT (TEG) 121 s 86 - 118 05/24/2015 [facility] HEMATOLOGY [place] 0.7 min 05/24/2015 [facility] HEMATOLOGY Rapid TEG Sample Type Citrated Whole Blood (05/24/15 4:33 PM) 05/24/2015 [facility] HEMATOLOGY Hct 35.6 % 42.0 - 54.0 05/24/2015 [facility] HEMATOLOGY WBC 5.8 K/CMM 3.7 - 10.4 05/24/2015 [facility] HEMATOLOGY RBC 4.41 M/CMM 4.70 - 6.10 05/24/2015 [facility] HEMATOLOGY MPV 7.6 fL 7.4 - 10.4 05/24/2015 [facility] HEMATOLOGY Platelet 330 K/CMM 133 - 450 05/24/2015 [facility] HEMATOLOGY RDW 17.4 % 11.5 - 14.5 05/24/2015 [facility] HEMATOLOGY MCH 25.3 pg 27.0 - 31.0 05/24/2015 [facility] HEMATOLOGY MCHC 31.3 g/dL 32.0 - 36.0 05/24/2015 [facility] HEMATOLOGY MCV 80.8 fL 80.0 - 94.0 05/24/2015 [facility] HEMATOLOGY Hgb 11.2 g/dL 14.0 - 18.0 05/24/2015 [facility] HEMATOLOGY Eosinophils # 0.3 K/CMM 0.0 - 0.5 05/24/2015 [facility] HEMATOLOGY Lymphocytes # 1.0 K/CMM 1.0 - 5.5 05/24/2015 [facility] HEMATOLOGY Monocytes # 0.7 K/CMM 0.0 - 0.8 05/24/2015 [facility] HEMATOLOGY Basophils 0.8 % 0.0 - 1.0 05/24/2015 [facility] HEMATOLOGY Segs-Bands # 3.8 K/CMM 1.5 - 8.1 05/24/2015 [facility] HEMATOLOGY Lymphocytes 16.8 % 20.0 - 40.0 05/24/2015 [facility] HEMATOLOGY Monocytes 12.3 % 2.0 - 12.0 05/24/2015 [facility] HEMATOLOGY Eosinophils 4.6 % 0.0 - 4.0 05/24/2015 [facility] HEMATOLOGY Segs 65.5 % 45.0 - 75.0 05/24/2015 [facility] Chest 2 views DX Chest 2 views DX EXAM: CHEST 2 VIEWS DATE: Mar 09, 2015 03:00:00 PM INDICATION: Shortness of Breath COMPARISON: Chest radiograph 03/02/2015 TECHNIQUE: Frontal and lateral chest radiographs FINDINGS: The heart size is within normal limits. The lungs are clear. The costophrenic sulci are sharp without effusion. The osseous structures are unremarkable. IMPRESSION: No acute abnormality identified. 03/09/2015 - - Read by: Matias Rangel MD Dictated Date/time: 03/09/15 15:52 Electronically Signed by: Matias Rangel MD 03/09/15 15:52 FINAL REPORT [facility] CHEM PANEL Lactic Acid WB 1.8 mmol/L 0.5 - 2.2 03/02/2015 [facility] CHEM PANEL Lactic Acid Lvl 2.3 mMol/L 0.5 - 2.2 03/02/2015 [facility] CHEM PANEL B/C Ratio 8 6 - 25 03/02/2015 [facility] CHEM PANEL AGAP 14.1 meq/L 10.0 - 20.0 03/02/2015 [facility] CHEM PANEL A/G Ratio 1.1 0.7 - 1.6 03/02/2015 [facility] CHEM PANEL Globulin 3.6 g/dL 2.0 - 4.0 03/02/2015 [facility] CHEM PANEL eGFR 104 mL/min/1.73m2 03/02/2015 Result Comment: The eGFR is calculated using the [...] from the National Kidney Disease Education Program (NKDEP) which additionally recommends that when the eGFR is used in patients with extremes of body mass index for purposes of drug dosing, the eGFR should be multiplied by the estimated BMI. [facility] CHEM PANEL BUN 8 mg/dL 7 - 22 03/02/2015 [facility] CHEM PANEL CO2 26 meq/L 24 - 32 03/02/2015 [facility] CHEM PANEL Calcium Lvl 9.1 mg/dL 8.5 - 10.5 03/02/2015 [facility] CHEM PANEL Chloride Lvl 103 meq/L 95 - 109 03/02/2015 [facility] CHEM PANEL Glucose Lvl 112 mg/dL 70 - 99 03/02/2015 [facility] CHEM PANEL Creatinine Lvl 0.95 mg/dL 0.50 - 1.40 03/02/2015 [facility] CHEM PANEL Potassium Lvl 3.1 meq/L 3.5 - 5.1 03/02/2015 [facility] CHEM PANEL Sodium Lvl 140 meq/L 135 - 145 03/02/2015 [facility] CHEM PANEL AST 17 unit/L 0 - 37 03/02/2015 [facility] CHEM PANEL Alk Phos 76 unit/L 39 - 136 03/02/2015 [facility] CHEM PANEL Bili Total 0.3 mg/dL 0.2 - 1.3 03/02/2015 [facility] CHEM PANEL Albumin Lvl 3.8 g/dL 3.5 - 5.0 03/02/2015 [facility] CHEM PANEL ALT 32 unit/L 0 - 65 03/02/2015 [facility] CHEM PANEL Total Protein 7.4 g/dL 6.4 - 8.4 03/02/2015 [facility] HEMATOLOGY PT 14.1 s 12.0 - 14.7 03/02/2015 [facility] HEMATOLOGY INR 1.06 0.85 - 1.17 03/02/2015 [facility] HEMATOLOGY MCHC 31.8 g/dL 32.0 - 36.0 03/02/2015 [facility] HEMATOLOGY RDW 15.6 % 11.5 - 14.5 03/02/2015 [facility] HEMATOLOGY Platelet 275 K/CMM 133 - 450 03/02/2015 [facility] HEMATOLOGY MPV 8.0 fL 7.4 - 10.4 03/02/2015 [facility] HEMATOLOGY WBC 7.4 K/CMM 3.7 - 10.4 03/02/2015 [facility] HEMATOLOGY RBC 4.27 M/CMM 4.70 - 6.10 03/02/2015 [facility] HEMATOLOGY MCV 83.6 fL 80.0 - 94.0 03/02/2015 [facility] HEMATOLOGY MCH 26.6 pg 27.0 - 31.0 03/02/2015 [facility] HEMATOLOGY Hct 35.7 % 42.0 - 54.0 03/02/2015 [facility] HEMATOLOGY Hgb 11.4 g/dL 14.0 - 18.0 03/02/2015 [facility] HEMATOLOGY PTT 37.7 s 22.9 - 35.8 03/02/2015 [facility] HEMATOLOGY Monocytes # 0.7 K/CMM 0.0 - 0.8 03/02/2015 [facility] HEMATOLOGY Eosinophils # 0.1 K/CMM 0.0 - 0.5 03/02/2015 [facility] HEMATOLOGY Lymphocytes # 0.5 K/CMM 1.0 - 5.5 03/02/2015 [facility] HEMATOLOGY Basophils 0.5 % 0.0 - 1.0 03/02/2015 [facility] HEMATOLOGY Segs-Bands # 6.1 K/CMM 1.5 - 8.1 03/02/2015 [facility] HEMATOLOGY Monocytes 10.0 % 2.0 - 12.0 03/02/2015 [facility] HEMATOLOGY Eosinophils 0.8 % 0.0 - 4.0 03/02/2015 [facility] HEMATOLOGY Lymphocytes 6.4 % 20.0 - 40.0 03/02/2015 [facility] HEMATOLOGY Segs 82.3 % 45.0 - 75.0 03/02/2015 [facility] Brain w contrast CT Brain w contrast CT EXAM: CT brain with contrast. INDICATION: For cavernous sinus thrombosis. COMPARISON: CT face of the same day. TECHNIQUE: Postcontrast axial imaging of the brain was performed following the intravenous administration of 95 cc Omnipaque 350. Coronal and sagittal reconstructions were performed. DISCUSSION: No mass or mass effect. No hydrocephalus. No acute infarction. No abnormal enhancement of the brain parenchyma is detected. Paranasal sinuses and mastoid air cells are predominantly clear. Major dural venous sinuses are patent. Proximal right transverse sinus is hypoplastic. Cavernous sinuses are unremarkable. IMPRESSION: No abnormal enhancement is detected. Major dural venous sinuses are patent. Proximal right transverse sinus is hypoplastic. Cavernous sinuses are unremarkable. 03/02/2015 - - Read by: Valentina Still MD Dictated Date/time: 03/02/15 11:12 Electronically Signed by: Valentina Still MD 03/02/15 11:17 FINAL REPORT [facility] Facial bone w contrast CT Facial bone w contrast CT EXAM: CT face with contrast. INDICATION: Orbital swelling. COMPARISON: MRI September 05, 2014. CTA August 15, 2014. TECHNIQUE: Postcontrast axial imaging of the face was performed following the intravenous administration of 95 cc Omnipaque 350. Coronal and sagittal reconstructions were performed. DISCUSSION: Tooth #13 is carious demonstrating periapical lucency and adjacent ill-defined collection about the buccal cortex measuring 2.3 x 0.9 cm. Adjacent soft tissue inflammatory changes extend up the left premaxillary soft tissues to the left orbit and down the left face with thickening of the left platysma. Cavernous sinuses are unremarkable. No orbital masses. Paranasal sinuses and mastoid air cells are predominantly clear. IMPRESSION: Odontogenic abscess along the buccal cortex of tooth #13 with adjacent soft tissue inflammatory changes. 03/02/2015 - - Read by: Valentina Still MD Dictated Date/time: 03/02/15 10:59 Electronically Signed by: Valentina Still MD 03/02/15 11:12 FINAL REPORT [facility] Chest 1view DX Chest 1view DX EXAM : XR Chest 1view, DATE : Mar 02, 2015 08:30:00 AM. COMPARISON : 01/12/2015. CLINICAL INDICATION: Fever . DISCUSSION: Cardiomediastinal silhouette is within normal limits. Lungs are clear. No focal consolidation. No pleural effusions or pneumothorax. No acute osseous abnormality. Soft tissues are within normal limits. IMPRESSION: No radiographic abnormality of the chest. 03/02/2015 - - Read by: Robinson Reveles MD Dictated Date/time: 03/02/15 09:27 Electronically Signed by: Robinson Reveles MD 03/02/15 09:28 FINAL REPORT [facility] BLOOD BANK RESULTS ABO/Rh A POS 01/12/2015 [facility] BLOOD BANK RESULTS Antibody Scrn Negative (01/12/15 2:26 AM) 01/12/2015 [facility] CHEM PANEL Bili Direct 0.1 mg/dL 0.0 - 0.3 01/12/2015 [facility] CHEM PANEL Bili Total 0.3 mg/dL 0.2 - 1.3 01/12/2015 [facility] CHEM PANEL A/G Ratio 1.0 0.7 - 1.6 01/12/2015 [facility] CHEM PANEL Globulin 3.4 g/dL 2.0 - 4.0 01/12/2015 [facility] CHEM PANEL Alk Phos 81 unit/L 39 - 136 01/12/2015 [facility] CHEM PANEL ALT 36 unit/L 0 - 65 01/12/2015 [facility] CHEM PANEL Albumin Lvl 3.5 g/dL 3.5 - 5.0 01/12/2015 [facility] CHEM PANEL AST 35 unit/L 0 - 37 01/12/2015 [facility] CHEM PANEL Total Protein 6.9 g/dL 6.4 - 8.4 01/12/2015 [facility] CHEM PANEL Bili Indirect 0.2 mg/dL 0.0 - 1.0 01/12/2015 [facility] CHEM PANEL Lipase Lvl 103 unit/L 73 - 393 01/12/2015 [facility] CHEM PANEL Lactic Acid Lvl 0.7 mMol/L 0.5 - 2.2 01/12/2015 [facility] ELECTROLYTES AGAP 11.8 meq/L 10.0 - 20.0 01/12/2015 [facility] ELECTROLYTES Calcium Lvl 9.0 mg/dL 8.5 - 10.5 01/12/2015 [facility] ELECTROLYTES Potassium Lvl 3.8 meq/L 3.5 - 5.1 01/12/2015 [facility] ELECTROLYTES Sodium Lvl 143 meq/L 135 - 145 01/12/2015 [facility] ELECTROLYTES BUN 9 mg/dL 7 - 22 01/12/2015 [facility] ELECTROLYTES Glucose Lvl 97 mg/dL 70 - 99 01/12/2015 [facility] ELECTROLYTES CO2 29 meq/L 24 - 32 01/12/2015 [facility] ELECTROLYTES Chloride Lvl 106 meq/L 95 - 109 01/12/2015 [facility] ELECTROLYTES Creatinine Lvl 0.73 mg/dL 0.50 - 1.40 01/12/2015 [facility] ELECTROLYTES eGFR 121 mL/min/1.73m2 01/12/2015 Result Comment: The eGFR is calculated using the [...] from the National Kidney Disease Education Program (NKDEP) which additionally recommends that when the eGFR is used in patients with extremes of body mass index for purposes of drug dosing, the eGFR should be multiplied by the estimated BMI. [facility] HEMATOLOGY MCH 27.8 pg 27.0 - 31.0 01/12/2015 [facility] HEMATOLOGY Hct 34.0 % 42.0 - 54.0 01/12/2015 [facility] HEMATOLOGY MCV 86.6 fL 80.0 - 94.0 01/12/2015 [facility] HEMATOLOGY WBC 6.0 K/CMM 3.7 - 10.4 01/12/2015 [facility] HEMATOLOGY Hgb 10.9 g/dL 14.0 - 18.0 01/12/2015 [facility] HEMATOLOGY RBC 3.93 M/CMM 4.70 - 6.10 01/12/2015 [facility] HEMATOLOGY Platelet 312 K/CMM 133 - 450 01/12/2015 [facility] HEMATOLOGY MPV 7.5 fL 7.4 - 10.4 01/12/2015 [facility] HEMATOLOGY MCHC 32.1 g/dL 32.0 - 36.0 01/12/2015 [facility] HEMATOLOGY RDW 18.2 % 11.5 - 14.5 01/12/2015 [facility] HEMATOLOGY Lymphocytes # 1.1 K/CMM 1.0 - 5.5 01/12/2015 [facility] HEMATOLOGY Monocytes # 0.4 K/CMM 0.0 - 0.8 01/12/2015 [facility] HEMATOLOGY Eosinophils # 0.1 K/CMM 0.0 - 0.5 01/12/2015 [facility] HEMATOLOGY Eosinophils 1.1 % 0.0 - 4.0 01/12/2015 [facility] HEMATOLOGY Basophils 0.3 % 0.0 - 1.0 01/12/2015 [facility] HEMATOLOGY Segs-Bands # 4.4 K/CMM 1.5 - 8.1 01/12/2015 [facility] HEMATOLOGY Lymphocytes 18.4 % 20.0 - 40.0 01/12/2015 [facility] HEMATOLOGY Monocytes 7.1 % 2.0 - 12.0 01/12/2015 [facility] HEMATOLOGY Segs 73.1 % 45.0 - 75.0 01/12/2015 [facility] Chest 2 views DX Chest 2 views DX EXAM: XR CHEST 2 VIEWS DATE: 01/12/2015, 0152 hours INDICATION: Chest pain COMPARISON: None TECHNIQUE: Frontal and lateral chest radiographs DISCUSSION: No acute pulmonary or pleural based abnormality is identified. Pulmonary vascularity is normal. The cardiomediastinal silhouette is normal. No acute bony abnormality is identified. IMPRESSION: No acute cardiopulmonary abnormality identified. 01/12/2015 - - This report was dictated by a Assistant Principal/Fellow. I have personally reviewed the images as well as the Resident's interpretation and agree with the findings. Read by: Santiago Nunes MD Resident: Santiago Nunes MD Dictated Date/time: 01/12/15 02:08 Electronically Signed by: Ned Tadeo 01/12/15 03:33 FINAL REPORT [facility] CHEM PANEL Magnesium Lvl 2.1 mg/dL 1.8 - 2.4 09/05/2014 [facility] CHEM PANEL A/G Ratio 1.2 0.7 - 1.6 09/05/2014 [facility] CHEM PANEL AGAP 9.1 meq/L 10.0 - 20.0 09/05/2014 [facility] CHEM PANEL B/C Ratio 13 6 - 25 09/05/2014 [facility] CHEM PANEL Globulin 2.8 g/dL 2.0 - 4.0 09/05/2014 [facility] CHEM PANEL Bili Total 0.1 mg/dL 0.2 - 1.3 09/05/2014 [facility] CHEM PANEL AST 21 unit/L 0 - 37 09/05/2014 [facility] CHEM PANEL Alk Phos 50 unit/L 39 - 136 09/05/2014 [facility] CHEM PANEL Total Protein 6.1 g/dL 6.4 - 8.4 09/05/2014 [facility] CHEM PANEL Albumin Lvl 3.3 g/dL 3.5 - 5.0 09/05/2014 [facility] CHEM PANEL ALT 58 unit/L 0 - 65 09/05/2014 [facility] CHEM PANEL BUN 9 mg/dL 7 - 22 09/05/2014 [facility] CHEM PANEL CO2 32 meq/L 24 - 32 09/05/2014 [facility] CHEM PANEL Glucose Lvl 129 mg/dL 70 - 99 09/05/2014 2Interpretive Data: Adult reference range values reflect the clinical guidelines of the [place] [employer]. [facility] CHEM PANEL eGFR 123 mL/min/1.73m2 09/05/2014 1Result Comment: The eGFR is calculated using [...] from the National Kidney Disease Education Program (NKDEP) which additionally recommends that when the eGFR is used in patients with extremes of body mass index for purposes of drug dosing, the eGFR should be multiplied by the estimated BMI. [facility] CHEM PANEL Calcium Lvl 8.5 mg/dL 8.5 - 10.5 09/05/2014 [facility] CHEM PANEL Creatinine Lvl 0.7 mg/dL 0.5 - 1.4 09/05/2014 [facility] CHEM PANEL Potassium Lvl 4.1 meq/L 3.5 - 5.1 09/05/2014 [facility] CHEM PANEL Sodium Lvl 141 meq/L 135 - 145 09/05/2014 [facility] CHEM PANEL Chloride Lvl 104 meq/L 95 - 109 09/05/2014 [facility] CHEM PANEL Phosphorus 3.7 mg/dL 2.5 - 4.5 09/05/2014 [facility] Lymphocytes # 0.3 K/CMM 1.0 - 5.5 09/05/2014 [facility] HEMATOLOGY Monocytes # 0.4 K/CMM 0.0 - 0.8 09/05/2014 [facility] Segs-Bands # 8.4 K/CMM 1.5 - 8.1 09/05/2014 [facility] Monocytes 4.2 % 2.0 - 12.0 09/05/2014 [facility] Lymphocytes 3.3 % 20.0 - 40.0 09/05/2014 [facility] HEMATOLOGY Segs 92.5 % 45.0 - 75.0 09/05/2014 [facility] INR 0.96 0.85 - 1.17 09/05/2014 3Interpretive Data: RECOMMENDED RANGES FOR PROTIME INR: 2.0-3.0 for most medical and surgical thromboembolic states. 2.5-3.5 for artificial heart valves and recurrent embolism. INR SHOULD BE USED ONLY FOR PATIENTS ON STABLE ANTICOAGULANT THERAPY. [facility] PT 12.8 s 12.0 - 14.7 09/05/2014 [facility] PTT 25.7 s 22.9 - 35.8 09/05/2014 4Interpretive Data: Heparin Therapeutic Range: 57 - 92 Seconds [facility] RDW 17.4 % 11.5 - 14.5 09/05/2014 [facility] Platelet 312 K/CMM 133 - 450 09/05/2014 [facility] MPV 8.2 fL 7.4 - 10.4 09/05/2014 [facility] MCH 27.8 pg 27.0 - 31.0 09/05/2014 [facility] MCHC 33.5 g/dL 32.0 - 36.0 09/05/2014 [facility] RBC 3.66 M/CMM 4.70 - 6.10 09/05/2014 [facility] WBC 9.1 K/CMM 3.7 - 10.4 09/05/2014 [facility] Hgb 10.2 g/dL 14.0 - 18.0 09/05/2014 [facility] MCV 83.0 fL 80.0 - 94.0 09/05/2014 [facility] Hct 30.4 % 42.0 - 54.0 09/05/2014 [facility] Brain wo contrast MRI Brain wo contrast MRI MRI BRAIN WITHOUT CONTRAST HISTORY: Hemiparesis COMPARISON: CT head dated 08/15/2014 and MRI brain dated 08/15/2014 TECHNIQUE: Multiecho multiplanar images of the brain were done without contrast injection. FINDINGS: There is no acute infarct or restricted diffusion. The ventricles, sulci and cisterns are normal. There is no signal abnormality in the colon or the white matter. Minimal focal right cerebellar and right parietal hemosiderin deposition again noted on gradient images. No mass, hemorrhage or collection is identified. The pituitary gland is normal in size. The cerebellar tonsils are normal in position. Normal T2 flow voids are present. Small mucus retention cyst noted in the right maxillary sinus. IMPRESSION: No acute abnormality. SL: 17 09/05/2014 - - Read by: Eduin Foote MD Dictated Date/time: 09/06/14 10:31 Electronically Signed by: Eduin Foote MD 09/06/14 10:35 FINAL REPORT [facility] Chest 1view DX Chest 1view DX CHEST SINGLE VIEW (PORTABLE AP): HX: Focal neurological deficit COMPARISON: 08/15/2014 at 01: 58 FINDINGS: The lungs are free of consolidation or pleural effusion and the mediastinal silhouette is within normal limits of size. The visualized osseous structures are grossly normal. IMPRESSION: Negative chest. SL: 12 09/05/2014 - - Read by: Michael Jorge MD Dictated Date/time: 09/05/14 20:03 Electronically Signed by: Michael Jorge MD 09/05/14 20:04 FINAL REPORT [facility] Vitamin B12 Lvl 290 pg/mL 254 - 1320 08/15/2014 [facility] CHEM PANEL A/G Ratio 1.1 0.7 - 1.6 08/15/2014 [facility] CHEM PANEL Globulin 3.4 g/dL 2.0 - 4.0 08/15/2014 [facility] CHEM PANEL B/C Ratio 17 6 - 25 08/15/2014 [facility] CHEM PANEL AGAP 13.3 meq/L 10.0 - 20.0 08/15/2014 [facility] CHEM PANEL eGFR 123 mL/min/1.73m2 08/15/2014 2Result Comment: The eGFR is calculated using [...] from the National Kidney Disease Education Program (NKDEP) which additionally recommends that when the eGFR is used in patients with extremes of body mass index for purposes of drug dosing, the eGFR should be multiplied by the estimated BMI. [facility] CHEM PANEL Albumin Lvl 3.7 g/dL 3.5 - 5.0 08/15/2014 [facility] CHEM PANEL ALT 20 unit/L 0 - 65 08/15/2014 [facility] CHEM PANEL AST 28 unit/L 0 - 37 08/15/2014 [facility] CHEM PANEL Alk Phos 54 unit/L 39 - 136 08/15/2014 [facility] CHEM PANEL Bili Total 0.5 mg/dL 0.2 - 1.3 08/15/2014 [facility] CHEM PANEL CO2 25 meq/L 24 - 32 08/15/2014 [facility] CHEM PANEL Calcium Lvl 8.9 mg/dL 8.5 - 10.5 08/15/2014 [facility] CHEM PANEL Total Protein 7.1 g/dL 6.4 - 8.4 08/15/2014 [facility] CHEM PANEL Glucose Lvl 118 mg/dL 70 - 99 08/15/2014 4Interpretive Data: Adult reference range values reflect the clinical guidelines of the [place] [employer]. [facility] CHEM PANEL Creatinine Lvl 0.7 mg/dL 0.5 - 1.4 08/15/2014 [facility] CHEM PANEL Potassium Lvl 4.3 meq/L 3.5 - 5.1 08/15/2014 1Result Comment: Specimen Slightly Hemolyzed. [facility] CHEM PANEL Chloride Lvl 107 meq/L 95 - 109 08/15/2014 [facility] CHEM PANEL BUN 12 mg/dL 7 - 22 08/15/2014 [facility] CHEM PANEL Sodium Lvl 141 meq/L 135 - 145 08/15/2014 [facility] HEMATOLOGY Hex Phos N Negative (08/15/14 12:52 AM) Negative 08/15/2014 [facility] HEMATOLOGY dRVV Ratio 0.78 <=1.20 08/15/2014 [facility] HEMATOLOGY Lup Interp Negative for lupus anticoagulant with all tests performed (dRVVT, and hexagonal phospholipid neutralization).CPT: 46238 08/15/2014 [facility] HEMATOLOGY Sed Rate 1 mm/h 0 - 15 08/15/2014 [facility] HEMATOLOGY F5 Leiden Intrp FACTOR V LEIDEN: NegativeINTERPRETATION:Molecular analysis for the Factor V Leiden, [id number] mutation was negative.Other causes of activated protein C resistance and hereditary forms of venousthrombosis are not ruled out. Final diagnosis requires correlation withclinical history and other pertinent laboratory findings.Where appropriate, medical consultation and/or genetic counseling should beoffered to inform and explain the risk implications and genetic implicationsof these test results.ASSAY LIMITATIONS:The assay uses the FDA-cleared [employer] Factor V Leiden IVD(Poymerase chain reaction/FRET detection)kit, [employer] LC Instrument and the [employer] LightCycler 1.2 [...] data. This assay has been validated by [facility]. 08/15/2014 [facility] HEMATOLOGY F5 Leiden PCR Negative (08/15/14 12:52 AM) 08/15/2014 [facility] HEMATOLOGY Protein S Func 80 % 54 - 137 08/15/2014 [facility] HEMATOLOGY Protein C Func 136 % 72 - 147 08/15/2014 [facility] HEMATOLOGY Factor VIII 326 % 50 - 242 08/15/2014 [facility] HEMATOLOGY AT III Func 118 % 77 - 140 08/15/2014 [facility] HEMATOLOGY PT 12.9 s 12.0 - 14.7 08/15/2014 [facility] HEMATOLOGY INR 0.97 0.85 - 1.17 08/15/2014 7Interpretive Data: RECOMMENDED RANGES FOR PROTIME INR: 2.0-3.0 for most medical and surgical thromboembolic states. 2.5-3.5 for artificial heart valves and recurrent embolism. INR SHOULD BE USED ONLY FOR PATIENTS ON STABLE ANTICOAGULANT THERAPY. [facility] HEMATOLOGY PTT 31.2 s 22.9 - 35.8 08/15/2014 9Interpretive Data: Heparin Therapeutic Range: 57 - 92 Seconds [facility] IMMUNOLOGY C-REACTIVE PROTEIN null <=2.9 mg/L 08/15/2014 [facility] IMMUNOLOGY Cryoglob Negative (08/15/14 12:52 AM) Negative 08/15/2014 [facility] IMMUNOLOGY C-ANCA Negative (08/15/14 12:52 AM) Negative 08/15/2014 [facility] IMMUNOLOGY P-ANCA Negative (08/15/14 12:52 AM) Negative 08/15/2014 [facility] IMMUNOLOGY SS-B (La) Ab null <=0.9 AI 08/15/2014 [facility] IMMUNOLOGY SS-A (Ro) Ab null <=0.9 AI 08/15/2014 [facility] IMMUNOLOGY Hgb C % 0.0 % 0.0 - 0.0 08/15/2014 [facility] IMMUNOLOGY Hgb S % 0.0 % 0.0 - 0.0 08/15/2014 [facility] IMMUNOLOGY Hgb F % null 0.0 - 1.0 08/15/2014 [facility] IMMUNOLOGY Hgb Interp No abnormal hemoglobins are detected; normal hemoglobin electrophoresis pattern.I have personally reviewed the test results and concur with the resident's interpretation.CPT 69582-TH 08/15/2014 [facility] IMMUNOLOGY Hgb A % 97.5 % 95.8 - 97.8 08/15/2014 [facility] IMMUNOLOGY Hgb A2 % 2.5 % 2.2 - 3.2 08/15/2014 [facility] IMMUNOLOGY C4 Complement 37 mg/dL 16 - 47 08/15/2014 [facility] IMMUNOLOGY C3 Complement 110 mg/dL 88 - 201 08/15/2014 [facility] IMMUNOLOGY Treponemal Scr Non Reactive *NA* (08/15/14 12:52 AM) Non Reactive 08/15/2014 [facility] IMMUNOLOGY SKYE Negative (08/15/14 12:52 AM) Negative 08/15/2014 [facility] IMMUNOLOGY HIV 1/2 Ab Negative *NA* (08/15/14 12:52 AM) Negative 08/15/2014 [facility] IMMUNOLOGY DNA Ab (DS) Negative (08/15/14 12:52 AM) Negative 08/15/2014 [facility] IMMUNOLOGY Homocyst Tot 8.3 umol/L 3.7 - 13.9 08/15/2014 [facility] IMMUNOLOGY Beta2-Glycoprotein IgA 1.0 unit/mL <=19.9 unit/mL 08/15/2014 [facility] IMMUNOLOGY Beta2-Glycoprotein IgG null <=19.9 unit/mL 08/15/2014 [facility] IMMUNOLOGY Beta2-Glycoprotein IgM 6.7 unit/mL <=19.9 unit/mL 08/15/2014 [facility] IMMUNOLOGY Cardiolipin IgG null <=19.9 GPL 08/15/2014 [facility] IMMUNOLOGY Cardiolipin IgM 0.4 MPL-U/mL <=19.9 MPL 08/15/2014 [facility] IMMUNOLOGY Cardiolipin IgA 0.9 APL-U/mL <=19.9 APL 08/15/2014 [facility] IMMUNOLOGY Treponemal Scr Non Reactive *NA* (08/15/14 12:52 AM) Non Reactive 08/15/2014 [facility] Brain wo contrast MRI Brain wo contrast MRI EXAM: MRI BRAIN WITHOUT CONTRAST DATE: 08/15/2014 INDICATION: Weakness TECHNIQUE: Noncontrast MRI of the brain including DWI with ADC map, sagittal T1, axial T2 FLAIR, and GRE. COMPARISON: CT brain from 08/15/2014 FINDINGS: No restricted diffusion or clinical signal abnormalities. No hydrocephalus, extra-axial collection, or mass effect. Small focus of juxtacortical hemosiderin in the posterior inferior right parietal lobe and a tiny focus in the right cerebellum. Unremarkable marrow signal. Right maxillary sinus retention cyst. IMPRESSION: No recent infarction or acute abnormality. Small foci of hemosiderin in the right cerebellum and posterior inferior right parietal lobe. 08/15/2014 - - Read by: Farhat Gomez MD Dictated Date/time: 08/15/14 07:50 Electronically Signed by: Farhat Gomez MD 08/15/14 07:54 FINAL REPORT [facility] CHEM PANEL eGFR 117 mL/min/1.73m2 08/15/2014 3Result Comment: The eGFR is calculated using [...] from the National Kidney Disease Education Program (NKDEP) which additionally recommends that when the eGFR is used in patients with extremes of body mass index for purposes of drug dosing, the eGFR should be multiplied by the estimated BMI. [facility] CHEM PANEL Calcium Lvl 8.4 mg/dL 8.5 - 10.5 08/15/2014 [facility] CHEM PANEL BUN 12 mg/dL 7 - 22 08/15/2014 [facility] CHEM PANEL Chloride Lvl 108 meq/L 95 - 109 08/15/2014 [facility] CHEM PANEL Potassium Lvl 4.1 meq/L 3.5 - 5.1 08/15/2014 [facility] CHEM PANEL CO2 24 meq/L 24 - 32 08/15/2014 [facility] CHEM PANEL Sodium Lvl 142 meq/L 135 - 145 08/15/2014 [facility] CHEM PANEL Creatinine Lvl 0.8 mg/dL 0.5 - 1.4 08/15/2014 [facility] CHEM PANEL Glucose Lvl 96 mg/dL 70 - 99 08/15/2014 5Interpretive Data: Adult reference range values reflect the clinical guidelines of the [place] [employer]. [facility] CHEM PANEL AGAP 14.1 meq/L 10.0 - 20.0 08/15/2014 [facility] DRUG SCREEN U Amph Scr Negative *NA* (08/14/14 10:39 PM) Negative 08/15/2014 [facility] DRUG SCREEN U Cocaine Scr Negative *NA* (08/14/14 10:39 PM) Negative 08/15/2014 [facility] DRUG SCREEN U Opiate Scr Positive *ABN* (08/14/14 10:39 PM) Negative 08/15/2014 [facility] DRUG SCREEN U Cannab Scr Negative *NA* (08/14/14 10:39 PM) Negative 08/15/2014 [facility] DRUG SCREEN U Phencyc Scr Negative *NA* (08/14/14 10:39 PM) Negative 08/15/2014 [facility] DRUG SCREEN UDS Note See Note 6 (08/14/14 10:39 PM) 08/15/2014 6Interpretive Data: Drugs reported as positive have [...] Methadone 300 ng/mL Urine alcohol 20 mg/dL [facility] DRUG SCREEN U Lexi Scr Positive *ABN* (08/14/14 10:39 PM) Negative 08/15/2014 [facility] DRUG SCREEN U Benzodia Scr Negative *NA* (08/14/14 10:39 PM) Negative 08/15/2014 [facility] HEMATOLOGY INR 1.02 0.85 - 1.17 08/15/2014 8Interpretive Data: RECOMMENDED RANGES FOR PROTIME INR: 2.0-3.0 for most medical and surgical thromboembolic states. 2.5-3.5 for artificial heart valves and recurrent embolism. INR SHOULD BE USED ONLY FOR PATIENTS ON STABLE ANTICOAGULANT THERAPY. [facility] HEMATOLOGY PTT 32.0 s 22.9 - 35.8 08/15/2014 10Interpretive Data: Heparin Therapeutic Range: 57 - 92 Seconds [facility] HEMATOLOGY PT 13.4 s 12.0 - 14.7 08/15/2014 [facility] HEMATOLOGY MCV 82.6 fL 80.0 - 94.0 08/15/2014 [facility] HEMATOLOGY Hct 34.7 % 42.0 - 54.0 08/15/2014 [facility] HEMATOLOGY Hgb 11.2 g/dL 14.0 - 18.0 08/15/2014 [facility] HEMATOLOGY RDW 17.7 % 11.5 - 14.5 08/15/2014 [facility] HEMATOLOGY MCHC 32.3 g/dL 32.0 - 36.0 08/15/2014 [facility] HEMATOLOGY RBC 4.20 M/CMM 4.70 - 6.10 08/15/2014 [facility] HEMATOLOGY WBC 8.0 K/CMM 3.7 - 10.4 08/15/2014 [facility] HEMATOLOGY MPV 8.4 fL 7.4 - 10.4 08/15/2014 [facility] HEMATOLOGY Platelet 260 K/CMM 133 - 450 08/15/2014 [facility] HEMATOLOGY MCH 26.7 pg 27.0 - 31.0 08/15/2014 [facility] HEMATOLOGY Segs 80.1 % 45.0 - 75.0 08/15/2014 [facility] HEMATOLOGY Lymphocytes 10.0 % 20.0 - 40.0 08/15/2014 [facility] HEMATOLOGY Lymphocytes # 0.8 K/CMM 1.0 - 5.5 08/15/2014 [facility] HEMATOLOGY Segs-Bands # 6.4 K/CMM 1.5 - 8.1 08/15/2014 [facility] HEMATOLOGY Eosinophils # 0.2 K/CMM 0.0 - 0.5 08/15/2014 [facility] HEMATOLOGY Monocytes # 0.6 K/CMM 0.0 - 0.8 08/15/2014 [facility] HEMATOLOGY Eosinophils 1.9 % 0.0 - 4.0 08/15/2014 [facility] HEMATOLOGY Monocytes 7.7 % 2.0 - 12.0 08/15/2014 [facility] HEMATOLOGY Basophils 0.3 % 0.0 - 1.0 08/15/2014 [facility] LIPIDS LDL (Calculated) 59 mg/dL <=99 mg/dL 08/15/2014 [facility] LIPIDS VLDL 9 08/15/2014 [facility] LIPIDS Chol 117 mg/dL <=199 mg/dL 08/15/2014 [facility] LIPIDS Trig 43 mg/dL <=149 mg/dL 08/15/2014 [facility] LIPIDS HDL 49 mg/dL >=61 mg/dL 08/15/2014 [facility] LIPIDS CHD Risk 2.39 4.00 - 7.30 08/15/2014 [facility] SPECIAL CHEMISTRY Hgb A1C 5.4 % <=5.6 % 08/15/2014 [facility] URINE AND STOOL UA WBC null 0 - 5 08/15/2014 [facility] URINE AND STOOL UA Leuk Est Negative (08/14/14 10:39 PM) Negative 08/15/2014 [facility] URINE AND STOOL UA Bili Negative *NA* (08/14/14 10:39 PM) Negative 08/15/2014 [facility] URINE AND STOOL UA Nitrite Negative (08/14/14 10:39 PM) Negative 08/15/2014 [facility] URINE AND STOOL UA Blood Negative (08/14/14 10:39 PM) Negative 08/15/2014 [facility] URINE AND STOOL UA Mucus Few /LPF None Seen /LPF 08/15/2014 [facility] URINE AND STOOL UA Sq Epi None Seen 08/15/2014 [facility] URINE AND STOOL UA Urobilinogen <=1.0 mg/dL 0.1 - 1.0 08/15/2014 [facility] URINE AND STOOL UA Ketones Negative mg/dL Negative mg/dL 08/15/2014 [facility] URINE AND STOOL UA Protein Negative mg/dL Negative mg/dL 08/15/2014 [facility] URINE AND STOOL UA Glucose Negative mg/dL Negative mg/dL 08/15/2014 [facility] URINE AND STOOL UA Turbidity Clear (08/14/14 10:39 PM) Clear 08/15/2014 [facility] URINE AND STOOL UA Color Yellow *NA* (08/14/14 10:39 PM) Yellow 08/15/2014 [facility] URINE AND STOOL UA pH 5.5 5.0 - 8.0 08/15/2014 [facility] URINE AND STOOL UA Spec Grav 1.016 <=1.030 08/15/2014 [facility] Chest 1view DX Chest 1view DX PORTABLE CHEST 2014-08-15 02:11:00 COMPARISON: 08/16/2014 CLINICAL INDICATION: Altered level of consciousness IMPRESSION: Normal cardiac silhouette. No acute pleural or parenchymal based abnormalities. 08/15/2014 - - Read by: Tim Jeffery MD Dictated Date/time: 08/15/14 09:46 Electronically Signed by: Tim Jeffery 08/15/14 09:48 FINAL REPORT [facility] Abdomen AP DX Abdomen AP DX EXAM: XR ABDOMEN 1 VIEW DATE: 08/15/2014, 01:59 hours INDICATION: Abdominal distention. COMPARISON: None. TECHNIQUE: Two supine radiographs provided for interpretation. FINDINGS: Contrast is seen in the renal collecting systems and the bladder. There is a moderate stool burden in the rectosigmoid and the descending colon. No dilated loops of bowel are seen to suggest bowel obstruction. There are no abnormal calcifications. The bones are unremarkable. IMPRESSION: Moderate stool burden with no evidence of bowel obstruction. 08/15/2014 - - This report was dictated by a Assistant Principal/Fellow. I have personally reviewed the images as well as the Resident's interpretation and agree with the findings. Read by: Lexi Painting MD Resident: Lexi Painting MD Dictated Date/time: 08/15/14 10:14 Electronically Signed by: Kerri Chaudhary MD 08/15/14 11:40 FINAL REPORT [facility] Brain/Neck CTA Brain/Neck CTA EXAM: CT angiogram of the NECK EXAM: CT angiogram of the HEAD DATE: 2014-08-15 01:48:00. INDICATION: Weakness. COMPARISON: CT brain dated 08/14/2014 at 1232 hours TECHNIQUE: Rapid acquisition spiral images were obtained between the aortic arch and the cranial vertex during intravenous infusion of iodinated contrast for the purposes of CT angiography. 3-D CT angiographic images are created using maximum intensity projection technique. The source images are also presented for interpretation. 85 C of Omnipaque were administered. 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 The remainder of the great vessel origins are unremarkable. The right vertebral artery is hypoplastic, but opacifies with contrast in all 4 segments. The common carotid, internal carotid, and left vertebral arteries are normal. There is no dissection, pseudoaneurysm, stenosis, or vasculopathy. The intracranial vessels are unremarkable. There is no stenosis, occlusion, vasculopathy, aneurysm, or vascular malformation. The intracranial venous structures are normal. The soft tissues of the neck and other incidental structures are normal. IMPRESSION: Normal vascular exams. ( All quantitative and qualitative assessments of the carotid bifurcation and proximal internal carotid artery stenosis are made at referencing the distal internal carotid artery.) 08/15/2014 - - This report was dictated by a Assistant Principal/Fellow. I have personally reviewed the images as well as the Resident's interpretation and agree with the findings. Read by: [id number] ESTIVEN Milner [id number] Resident: [id number] -ESTIVEN Gibbs [id number] Dictated Date/time: 08/15/14 10:13 Electronically Signed by: Chiquita Salazar MD 08/15/14 13:58 FINAL REPORT [facility] CHEM PANEL POC Creatinine 0.7 mg/dL 0.5 - 1.4 08/12/2014 [facility] CHEM PANEL eGFR 122 mL/min/1.73m2 08/12/2014 1Result Comment: The eGFR is calculated using [...] from the National Kidney Disease Education Program (NKDEP) which additionally recommends that when the eGFR is used in patients with extremes of body mass index for purposes of drug dosing, the eGFR should be multiplied by the estimated BMI. [facility] CARDIAC ENZYMES Total CK 62 unit/L 12 - 191 08/12/2014 [facility] CARDIAC ENZYMES Troponin-I null 0.00 - 0.40 08/12/2014 [facility] CARDIAC ENZYMES CK MB null 0.5 - 3.6 08/12/2014 [facility] CARDIAC ENZYMES CK-MB INDEX null 0.0 - 2.5 08/12/2014 [facility] CHEM PANEL eGFR 116 mL/min/1.73m2 08/12/2014 2Result Comment: The eGFR is calculated using [...] from the National Kidney Disease Education Program (NKDEP) which additionally recommends that when the eGFR is used in patients with extremes of body mass index for purposes of drug dosing, the eGFR should be multiplied by the estimated BMI. [facility] CHEM PANEL Chloride Lvl 107 meq/L 95 - 109 08/12/2014 [facility] CHEM PANEL CO2 27 meq/L 24 - 32 08/12/2014 [facility] CHEM PANEL Calcium Lvl 8.5 mg/dL 8.5 - 10.5 08/12/2014 [facility] CHEM PANEL AGAP 11.7 meq/L 10.0 - 20.0 08/12/2014 [facility] CHEM PANEL Sodium Lvl 142 meq/L 135 - 145 08/12/2014 [facility] CHEM PANEL Potassium Lvl 3.7 meq/L 3.5 - 5.1 08/12/2014 [facility] CHEM PANEL Glucose Lvl 94 mg/dL 70 - 99 08/12/2014 3Interpretive Data: Adult reference range values reflect the clinical guidelines of the [place] [employer]. [facility] CHEM PANEL BUN 14 mg/dL 7 - 22 08/12/2014 [facility] CHEM PANEL Creatinine Lvl 0.8 mg/dL 0.5 - 1.4 08/12/2014 [facility] HEMATOLOGY PTT 34.9 s 22.9 - 35.8 08/12/2014 5Interpretive Data: Heparin Therapeutic Range: 57 - 92 Seconds [facility] HEMATOLOGY PT 13.7 s 12.0 - 14.7 08/12/2014 [facility] HEMATOLOGY INR 1.05 0.85 - 1.17 08/12/2014 4Interpretive Data: RECOMMENDED RANGES FOR PROTIME INR: 2.0-3.0 for most medical and surgical thromboembolic states. 2.5-3.5 for artificial heart valves and recurrent embolism. INR SHOULD BE USED ONLY FOR PATIENTS ON STABLE ANTICOAGULANT THERAPY. [facility] HEMATOLOGY RDW 17.6 % 11.5 - 14.5 08/12/2014 [facility] HEMATOLOGY Platelet 245 K/CMM 133 - 450 08/12/2014 [facility] HEMATOLOGY Hct 33.1 % 42.0 - 54.0 08/12/2014 [facility] HEMATOLOGY MCH 26.1 pg 27.0 - 31.0 08/12/2014 [facility] HEMATOLOGY MPV 8.2 fL 7.4 - 10.4 08/12/2014 [facility] HEMATOLOGY MCHC 32.1 g/dL 32.0 - 36.0 08/12/2014 [facility] HEMATOLOGY MCV 81.2 fL 80.0 - 94.0 08/12/2014 [facility] HEMATOLOGY WBC 6.8 K/CMM 3.7 - 10.4 08/12/2014 [facility] HEMATOLOGY RBC 4.07 M/CMM 4.70 - 6.10 08/12/2014 [facility] HEMATOLOGY Hgb 10.6 g/dL 14.0 - 18.0 08/12/2014 [facility] HEMATOLOGY Eosinophils # 0.1 K/CMM 0.0 - 0.5 08/12/2014 [facility] HEMATOLOGY Monocytes # 0.8 K/CMM 0.0 - 0.8 08/12/2014 [facility] HEMATOLOGY Segs-Bands # 4.7 K/CMM 1.5 - 8.1 08/12/2014 [facility] HEMATOLOGY Lymphocytes # 1.1 K/CMM 1.0 - 5.5 08/12/2014 [facility] HEMATOLOGY Monocytes 11.2 % 2.0 - 12.0 08/12/2014 [facility] HEMATOLOGY Basophils 0.7 % 0.0 - 1.0 08/12/2014 [facility] HEMATOLOGY Eosinophils 2.1 % 0.0 - 4.0 08/12/2014 [facility] HEMATOLOGY Lymphocytes 15.9 % 20.0 - 40.0 08/12/2014 [facility] HEMATOLOGY Segs 70.1 % 45.0 - 75.0 08/12/2014 [facility] Chest 1view DX Chest 1view DX EXAM: XR CHEST 1 VIEW DATE: 2014-08-12 13:14:00 INDICATION: Focal neurological deficit. TECHNIQUE: A single portable chest radiograph is submitted for interpretation. DISCUSSION: Subsegmental atelectasis is present in the right hemithorax, midportion and peripheral. This overlies the scapula body. No monster consolidation or other pulmonary or pleural-based abnormality is identified. The cardiomediastinal silhouette, remaining soft tissues and osseous structures are unremarkable for acute abnormality. IMPRESSION: Mild right lung subsegmental atelectasis, without other abnormality. 08/12/2014 - - Read by: Rosendo Patel MD Dictated Date/time: 08/12/14 13:14 Electronically Signed by: Rosendo Patel MD 08/12/14 13:16 FINAL REPORT [facility] Brain/Neck Stroke perfusion CTA Brain/Neck Stroke perfusion CTA EXAM: CT angiogram of the NECK EXAM: CT angiogram of the HEAD EXAM: CT perfusion of the BRAIN DATE: 2014-08-12 12:54:00. INDICATION: Stroke. DISCUSSION: Rapid acquisition spiral images were obtained between the aortic arch and the cranial vertex during intravenous infusion of iodinated contrast for the purposes of CT angiography. 3-D CT angiographic images are created using maximum intensity projection technique. The source images are also presented for interpretation. CT PERFUSION OF THE BRAIN: Dynamic images on limited area of the brain parenchyma are performed during bolus injection of 30cc iodinated contrast material. Color maps of relative cerebral blood flow, relative cerebral blood volume and time to peak perfusion are created on an independent workstation and submitted for interpretation along with the source image data. COMPARISON: CT brain 08/12/2014. The origin of the right vertebral artery is directly of off the aortic arch and traverses posterior to the esophagus as it enters the vertebral foramen at C6. The left vertebral and the remainder of the great vessel origins are unremarkable. The distal right vertebral artery terminates primarily into the right PICA with a hypoplastic terminal branch likely the basilar artery, although not definitely seen. The common carotid, internal carotid, and left vertebral artery are normal. There is no dissection, pseudoaneurysm, stenosis, or vasculopathy. The intracranial vessels are unremarkable. There is no stenosis, occlusion, vasculopathy, aneurysm, or vascular malformation. The intracranial venous structures are normal. The soft tissues of the neck and other incidental structures are normal. IMPRESSION: 1. No acute vascular abnormality. 2. Distal right vertebral artery terminates primarily into the right PICA 3. No perfusion abnormality seen. ( All quantitative and qualitative assessments of the carotid bifurcation and proximal internal carotid artery stenosis are made at referencing the distal internal carotid artery.) 08/12/2014 - - This report was dictated by a Assistant Principal/Fellow. I have personally reviewed the images as well as the Resident's interpretation and agree with the findings. Read by: [id number] Milner RES [id number] Resident: [id number] Milner RES [id number] Dictated Date/time: 08/12/14 13:18 Electronically Signed by: Cirilo Segura MD 08/12/14 17:02 FINAL REPORT [facility] Brain Stroke wo contrast CT Brain Stroke wo contrast CT EXAM: CT HEAD WITHOUT CONTRAST. DATE: Aug 12, 2014 12:23:00 PM INDICATION: Focal neurological deficit TECHNIQUE: Noncontrast axial imaging was obtained from the vertex to the skull base. Coronal and sagittal reformatted images were also obtained. COMPARISON: None available FINDINGS: There is no acute intracranial hemorrhage or extra-axial collection. There is no intra-axial mass. The ventricles are normal. Incidental note of cavum septum vergae. The colon-white matter interface is preserved. The included paranasal sinuses, mastoid air cells and auditory canals are clear. No skull fracture is demonstrated. Small amount of soft tissue density in the right external ear canal, likely represent wax/cerumen impaction. Correlation with clinical examination is recommended. IMPRESSION: 1. No acute intracranial hemorrhage or evidence of recent ischemia. 2. Small amount of soft tissue density in the right external ear canal, likely represent wax/cerumen impaction. Correlation with clinical examination is recommended. ASPECTS:10 Laterality: none Caudate: normal Internal capsule: normal Lentiform Nucleus: normal Insula: normal M1: normal M2: normal M3: normal M4: normal M5: normal M6: normal 08/12/2014 - - This report was dictated by a Assistant Principal/Fellow. I have personally reviewed the images as well as the Resident's interpretation and agree with the findings. Read by: Vilma Jeong MD Resident: Vilma Jeong MD Dictated Date/time: 08/12/14 12:50 Electronically Signed by: Ole Anguiano MD 08/12/14 13:09 FINAL REPORT [facility] Vital Signs Vital Sign Value Date Comments Source Temperature Oral (F) 97.8 F 05/24/2015 [facility] Heart Rate 87 05/24/2015 [facility] Respitory Rate 18 05/24/2015 [facility] Systolic (mm Hg) 121 05/24/2015 [facility] Diastolic (mm Hg) 77 05/24/2015 [facility] Heart Rate 88 05/24/2015 [facility] Respitory Rate 20 05/24/2015 [facility] Systolic (mm Hg) 125 05/24/2015 [facility] Diastolic (mm Hg) 80 05/24/2015 [facility] Weight 68.182 05/24/2015 [facility] BMI Calculated 21.57 05/24/2015 [facility] Height 177.8 cm 05/24/2015 [facility] Respitory Rate 20 05/24/2015 [facility] Heart Rate 93 05/24/2015 [facility] Systolic (mm Hg) 120 05/24/2015 [facility] Diastolic (mm Hg) 84 05/24/2015 [facility] Temperature Oral (F) 97.6 F 05/24/2015 [facility] Weight 68.182 03/09/2015 [facility] BMI Calculated 21.57 03/09/2015 [facility] Height 177.8 cm 03/09/2015 [facility] Temperature Oral (F) 98.0 F 03/09/2015 [facility] Respitory Rate 18 03/09/2015 [facility] Systolic (mm Hg) 143 03/09/2015 [facility] Diastolic (mm Hg) 96 03/09/2015 [facility] Heart Rate 101 03/09/2015 [facility] Respitory Rate 18 03/02/2015 [facility] Systolic (mm Hg) 148 03/02/2015 [facility] Diastolic (mm Hg) 92 03/02/2015 [facility] Temperature Oral (F) 97.6 F 03/02/2015 [facility] Systolic (mm Hg) 151 03/02/2015 [facility] Diastolic (mm Hg) 94 03/02/2015 [facility] Respitory Rate 18 03/02/2015 [facility] Systolic (mm Hg) 150 03/02/2015 [facility] Diastolic (mm Hg) 98 03/02/2015 [facility] Respitory Rate 20 03/02/2015 [facility] Heart Rate 105 03/02/2015 [facility] Weight 68.182 03/02/2015 [facility] BMI Calculated 21.57 03/02/2015 [facility] Height 177.8 cm 03/02/2015 [facility] Temperature Oral (F) 98.1 F 03/02/2015 [facility] Heart Rate 116 03/02/2015 [facility] Respitory Rate 18 01/12/2015 [facility] Temperature Oral (F) 97 F 01/12/2015 [facility] [facility] Systolic (mm Hg) 124 01/12/2015 [facility] Diastolic (mm Hg) 86 01/12/2015 [facility] Systolic (mm Hg) 121 01/12/2015 [facility] Diastolic (mm Hg) 78 01/12/2015 [facility] Respitory Rate 18 01/12/2015 [facility] Heart Rate 88 01/12/2015 [facility] Temperature Oral (F) 97.7 F 01/12/2015 [facility] Heart Rate 83 01/12/2015 [facility] Respitory Rate 18 01/12/2015 [facility] Systolic (mm Hg) 121 01/12/2015 [facility] Diastolic (mm Hg) 80 01/12/2015 [facility] BMI Calculated 20.13 01/12/2015 [facility] Height 177.8 cm 01/12/2015 [facility] Weight 63.636 01/12/2015 [facility] Heart Rate 106 01/12/2015 [facility] Temperature Oral (F) 98.4 F 01/12/2015 [facility] Temperature Oral (F) 97.4 F 09/06/2014 [facility] Systolic (mm Hg) 129 09/06/2014 [facility] Diastolic (mm Hg) 77 09/06/2014 [facility] Respitory Rate 16 09/06/2014 [facility] Heart Rate 86 09/06/2014 [facility] Systolic (mm Hg) 118 09/06/2014 [facility] Diastolic (mm Hg) 78 09/06/2014 [facility] Heart Rate 89 09/06/2014 [facility] Respitory Rate 16 09/06/2014 [facility] Temperature Oral (F) 97.6 F 09/06/2014 [facility] Heart Rate 67 09/06/2014 [facility] Respitory Rate 18 09/06/2014 [facility] Systolic (mm Hg) 142 09/06/2014 [facility] Diastolic (mm Hg) 92 09/06/2014 [facility] Temperature Oral (F) 97.9 F 09/06/2014 [facility] BMI Calculated 20.85 09/05/2014 [facility] Weight 65.909 09/05/2014 [facility] Height 177.8 cm 09/05/2014 [facility] Temperature Oral (F) 98.3 F 08/16/2014 [facility] Systolic (mm Hg) 122 08/16/2014 [facility] Diastolic (mm Hg) 64 08/16/2014 [facility] Heart Rate 95 08/16/2014 [facility] Respitory Rate 18 08/16/2014 [facility] Systolic (mm Hg) 122 08/16/2014 [facility] Diastolic (mm Hg) 69 08/16/2014 [facility] Respitory Rate 20 08/16/2014 [facility] Heart Rate 99 08/16/2014 [facility] Temperature Oral (F) 98.3 F 08/16/2014 [facility] Respitory Rate 20 08/16/2014 [facility] Heart Rate 101 08/16/2014 [facility] Systolic (mm Hg) 117 08/16/2014 [facility] Diastolic (mm Hg) 68 08/16/2014 [facility] Temperature Oral (F) 98.7 F 08/16/2014 [facility] Weight 64.8 08/15/2014 [facility] Height 177.8 cm 08/15/2014 [facility] BMI Calculated 20.5 08/15/2014 [facility] Respitory Rate 15 08/12/2014 [facility] Systolic (mm Hg) 105 08/12/2014 [facility] Diastolic (mm Hg) 56 08/12/2014 [facility] Weight 70.455 08/12/2014 [facility] Heart Rate 92 08/12/2014 [facility] Respitory Rate 18 08/12/2014 [facility] Temperature Oral (F) 97.6 F 08/12/2014 [facility] Systolic (mm Hg) 145 08/12/2014 [facility] Diastolic (mm Hg) 91 08/12/2014 [facility] Encounters Location Location Details Encounter Type Encounter Number Reason For Visit Attending Provider ADM Date DC Date Status Source [facility] [id number] Tim Olmedo 08/12/2014 08/12/2014 [facility] Inpatient [id number] Beckie Rojo 08/15/2014 08/16/2014 [facility] OBS Observation Patient [id number] Polo Luis 09/05/2014 09/06/2014 [facility] [id number] Michael Weaver 01/12/2015 01/12/2015 [facility] [id number] Flor Macedo 03/02/2015 03/02/2015 [facility] [id number] Marcos Love 03/09/2015 03/09/2015 [facility] [id number] Ko Knight 05/24/2015 05/24/2015 [facility] Procedures Procedure Code Date Perfomer Comments Source Resection of gastric ulcer by cautery [id number] [facility] Resection<sup>1</sup> [id number] 1small bowel resection 7 months ago related to crohns disease management [facility] Resection of gastric ulcer by cautery [id number] Melanie
--- OUTSIDE RECORDS SUMMARY | 2018-06-19 18:22 | XMS REPORT | Summary of Care ---
Author Author [facility] Organization [facility] Address Unknown Phone Unavailable Encounter ARRON Cullen(GUILHERME) [id number] Date(s): 05/24/15 - 05/24/15 [facility] [address] [employer] Services provided by [facility] [place] [address]- Discharge Diagnosis: Chronic nausea Discharge Disposition: Home Attending Physician: Ko Knight MD PHD Vital Signs 1 2 3 Most recent to oldest [Reference Range]: 177.8 cm (05/24/15 2:17 PM) Height 97.8 DegF (05/24/15 5:17 PM) 97.6 DegF (05/24/15 2:17 PM) Temperature Oral [96.4-99.1 DegF] 121/77 mmHg (05/24/15 5:17 PM) 125/80 mmHg (05/24/15 3:17 PM) 120/84 mmHg (05/24/15 2:17 PM) Blood Pressure [90-140/60-90 mmHg] 18 BRMIN (05/24/15 5:17 PM) 20 BRMIN (05/24/15 3:17 PM) 20 BRMIN (05/24/15 2:17 PM) Respiratory Rate [14-20 BRMIN] 87 bpm (05/24/15 5:17 PM) 88 bpm (05/24/15 3:17 PM) 93 bpm (05/24/15 2:17 PM) Peripheral Pulse Rate [60-100 bpm] 68.182 kg (05/24/15 2:17 PM) Weight 21.57 m2 (05/24/15 2:17 PM) Body Mass Index Problem List Condition Effective Dates Status Health Status Informant ADHD (attention Resolved deficit hyperactivity disorder)(Confirmed) Cancer(Confirmed) Active Crohn Resolved disease(Confirmed) Crohns Resolved disease(Confirmed) Crohns Active disease(Confirmed) CVA (cerebral Resolved vascular accident)(Confirmed) Factor V Resolved Leiden(Confirmed) Stroke(Confirmed) Resolved Allergies, Adverse Reactions, Alerts Substance Reaction Severity Status NSAIDs Active Toradol Active Medications Zofran ODT 4 mg, 1 tab, Route: PO, Drug form: TABDIS, ONCE, Dosing Weight 68.182, kg, Prior ity: STAT, Start date: 05/24/15 15:58:00, Stop date: 05/24/15 15:58:00 Notes: (Same as: Zofran ODT) Start Date: 05/24/15 Stop Date: 05/24/15 Status: Completed Results ELECTROLYTES Most recent to 1 oldest [Reference Range]: Sodium Lvl [135-145 143 mEq/L mEq/L] (05/24/15 4:33 PM) Potassium Lvl 3.3 mEq/L [3.5-5.1 mEq/L] *LOW* (05/24/15 4:33 PM) Chloride Lvl [95-109 105 mEq/L mEq/L] (05/24/15 4:33 PM) CO2 [24-32 mEq/L] 30 mEq/L (05/24/15 4:33 PM) AGAP [10.0-20.0 11.3 mEq/L mEq/L] (05/24/15 4:33 PM) CHEM PANEL Most recent to 1 oldest [Reference Range]: Creatinine Lvl 0.82 mg/dL [0.50-1.40 mg/dL] (05/24/15 4:33 PM) eGFR 115 mL/min/1.73m2 1 *NA* (05/24/15 4:33 PM) BUN [7-22 mg/dL] 13 mg/dL (05/24/15 4:33 PM) B/C Ratio [6-25] 16 (05/24/15 4:33 PM) Glucose Lvl [70-99 82 mg/dL mg/dL] (05/24/15 4:33 PM) Total Protein 7.1 g/dL [6.4-8.4 g/dL] (05/24/15 4:33 PM) Albumin Lvl [3.5-5.0 3.6 g/dL g/dL] (05/24/15 4:33 PM) Globulin [2.0-4.0 3.5 g/dL g/dL] (05/24/15 4:33 PM) A/G Ratio [0.7-1.6] 1.0 (05/24/15 4:33 PM) Calcium Lvl 9.1 mg/dL [8.5-10.5 mg/dL] (05/24/15 4:33 PM) ALT [0-65 unit/L] 129 unit/L *HI* (05/24/15 4:33 PM) AST [0-37 unit/L] 32 unit/L (05/24/15 4:33 PM) Alk Phos [39-136 135 unit/L unit/L] (05/24/15 4:33 PM) Bili Total [0.2-1.3 0.2 mg/dL mg/dL] (05/24/15 4:33 PM) Lactic Acid Lvl 2.1 mMol/L [0.5-2.2 mMol/L] (05/24/15 4:33 PM) 1Result Comment: The eGFR is calculated [...] 1 oldest [Reference Range]: WBC [3.7-10.4 K/CMM] 5.8 K/CMM (05/24/15 4:33 PM) RBC [4.70-6.10 4.41 M/CMM M/CMM] *LOW* (05/24/15 4:33 PM) Hgb [14.0-18.0 g/dL] 11.2 g/dL *LOW* (05/24/15 4:33 PM) Hct [42.0-54.0 %] 35.6 % *LOW* (05/24/15 4:33 PM) MCV [80.0-94.0 fL] 80.8 fL (05/24/15 4:33 PM) MCH [27.0-31.0 pg] 25.3 pg *LOW* (05/24/15 4:33 PM) MCHC [32.0-36.0 31.3 g/dL g/dL] *LOW* (05/24/15 4:33 PM) RDW [11.5-14.5 %] 17.4 % *HI* (05/24/15 4:33 PM) Platelet [133-450 330 K/CMM K/CMM] (05/24/15 4:33 PM) MPV [7.4-10.4 fL] 7.6 fL (05/24/15 4:33 PM) Segs [45.0-75.0 %] 65.5 % (05/24/15 4:33 PM) Lymphocytes 16.8 % [20.0-40.0 %] *LOW* (05/24/15 4:33 PM) Monocytes [2.0-12.0 12.3 % %] *HI* (05/24/15 4:33 PM) Eosinophils [0.0-4.0 4.6 % %] *HI* (05/24/15 4:33 PM) Basophils [0.0-1.0 0.8 % %] (05/24/15 4:33 PM) Segs-Bands # 3.8 K/CMM [1.5-8.1 K/CMM] (05/24/15 4:33 PM) Lymphocytes # 1.0 K/CMM [1.0-5.5 K/CMM] (05/24/15 4:33 PM) Monocytes # [0.0-0.8 0.7 K/CMM K/CMM] (05/24/15 4:33 PM) Eosinophils # 0.3 K/CMM [0.0-0.5 K/CMM] (05/24/15 4:33 PM) Rapid TEG Sample Citrated Whole Blood Type (05/24/15 4:33 PM) ACT (TEG) [86-118 121 seconds seconds] *HI* (05/24/15 4:33 PM) Split Point 0.7 minutes *NA* (05/24/15 4:33 PM) R-time [0.4-0.7 0.8 minutes minutes] *HI* (05/24/15 4:33 PM) K-time [0.6-2.3 1.1 minutes minutes] (05/24/15 4:33 PM) Angle [64-80 77 degrees degrees] (05/24/15 4:33 PM) Max Amp [52-71 mm] 69 mm (05/24/15 4:33 PM) G-value [5.0-11.6 K 11.3 K d/sc d/sc] (05/24/15 4:33 PM) Estimated % Lysis 2.5 % [0.0-7.5 %] (05/24/15 4:33 PM) Immunizations No data available for this section [...]
--- OUTSIDE RECORDS SUMMARY | 2018-06-19 18:22 | XMS REPORT | Summary of Care ---
Author Author [facility] Organization [facility] Address Unknown Phone Unavailable Encounter ARRON Cullen(GUILHERME) [id number] Date(s): 03/09/15 - 03/09/15 [facility] [address] [employer] provided by [facility] [place] [address]- Discharge Disposition: Not Seen Attending Physician: Marcos Love MD Vital Signs Most recent to 1 oldest [Reference Range]: Height 177.8 cm (03/09/15 1:59 PM) Temperature Oral 98.0 DegF [96.4-99.1 DegF] (03/09/15 1:59 PM) Blood Pressure 143/96 mmHg [90-140/60-90 mmHg] *HI* (03/09/15 1:59 PM) Respiratory Rate 18 BRMIN [14-20 BRMIN] (03/09/15 1:59 PM) Peripheral Pulse 101 bpm Rate [60-100 bpm] *HI* (03/09/15 1:59 PM) Weight 68.182 kg (03/09/15 1:59 PM) Body Mass Index 21.57 m2 (03/09/15 1:59 PM) Problem List Condition Effective Dates Status Health Status Informant ADHD (attention Resolved deficit hyperactivity disorder)(Confirmed) Cancer(Confirmed) Active Crohn Resolved disease(Confirmed) Crohns Resolved disease(Confirmed) Crohns Active disease(Confirmed) CVA (cerebral Resolved vascular accident)(Confirmed) Factor V Resolved Leiden(Confirmed) Stroke(Confirmed) Resolved Allergies, Adverse Reactions, Alerts Substance Reaction Severity Status Toradol Active Medications No data available for this section Results No data available for this section Immunizations No data available for this section [...]
--- OUTSIDE RECORDS SUMMARY | 2018-06-19 18:22 | XMS REPORT | Summary of Care ---
Author Author [facility] Organization [facility] Address Unknown Phone Unavailable Encounter ARRON Cullen(GUILHERME) [id number] Date(s): 01/11/15 - 01/12/15 [facility] [address] [employer] provided by [facility] [place] [address]- Discharge Diagnosis: Abdominal pain Discharge Disposition: Home Attending Physician: Michael Weaver MD Vital Signs 1 2 3 Most recent to oldest [Reference Range]: 177.8 cm (01/11/15 10:58 PM) Height 97 DegF (01/12/15 3:37 AM) 97.7 DegF (01/12/15 2:43 AM) 98.4 DegF (01/11/15 10:58 PM) Temperature Oral [96.4-99.1 DegF] 124/86 mmHg (01/12/15 3:37 AM) 121/78 mmHg (01/12/15 2:44 AM) 121/80 mmHg (01/12/15 1:11 AM) Blood Pressure [90-140/60-90 mmHg] 18 BRMIN (01/12/15 3:37 AM) 18 BRMIN (01/12/15 2:44 AM) 18 BRMIN (01/12/15 1:11 AM) Respiratory Rate [14-20 BRMIN] 88 bpm (01/12/15 2:44 AM) 83 bpm (01/12/15 1:11 AM) 106 bpm *HI* (01/11/15 10:58 PM) Peripheral Pulse Rate [60-100 bpm] 63.636 kg (01/11/15 10:58 PM) Weight 20.13 m2 (01/11/15 10:58 PM) Body Mass Index Problem List Condition Effective Dates Status Health Status Informant ADHD (attention Resolved deficit hyperactivity disorder)(Confirmed) Crohn Resolved disease(Confirmed) Crohns Resolved disease(Confirmed) Crohns Active disease(Confirmed) CVA (cerebral Resolved vascular accident)(Confirmed) Factor V Resolved Leiden(Confirmed) Stroke(Confirmed) Resolved Allergies, Adverse Reactions, Alerts Substance Reaction Severity Status NKDA Active Toradol Active Medications Dilaudid 0.5 mg, 0.25 mL, Route: IVP, Drug form: INJ, ONCE, Dosing Weight 63.636, kg, Urfina ority: STAT, Start date: 01/12/15 1:24:00, Stop date: 01/12/15 1:24:00 Notes: Same as: Dilaudid Start Date: 01/12/15 Stop Date: 01/12/15 Status: Discontinued pantoprazole 40 mg, Route: IVP, Drug form: INJ, ONCE, Dosing Weight 63.636, kg, Priority: STA T, Start date: 01/12/15 1:23:00, Stop date: 01/12/15 1:23:00 Notes: For IV push reconstitute with 10 ml 0.9% sodium chloride and push over 2 minutes. (Same as: Protonix) Start Date: 01/12/15 Stop Date: 01/12/15 Status: Completed Phenergan 25 mg, 1 mL, Route: IVPB, Drug form: INJ, ONCE, Dosing Weight 63.636, kg, Priori ty: STAT, Start date: 01/12/15 1:23:00, Stop date: 01/12/15 1:23:00 Notes: Do not give IV push. (Same as: Phenergan) Start Date: 01/12/15 Stop Date: 01/12/15 Status: Completed Sodium Chloride 0.9% (Bolus) IV 1,000 mL, Route: IV, Drug form: INJ, ONCE, Priority: STAT, Dosing Weight 63.636 kg, Start date: 01/12/15 1:23:00, Duration: 1 doses or times, Stop date: 5 1:23:00 Start Date: 01/12/15 Stop Date: 01/12/15 Status: Completed Results BLOOD BANK RESULTS Most recent to 1 oldest [Reference Range]: ABO/Rh A POS *Unknown* (01/12/15 2:26 AM) Antibody Scrn Negative (01/12/15 2:26 AM) ELECTROLYTES Most recent to 1 oldest [Reference Range]: Sodium Lvl [135-145 143 mEq/L mEq/L] (01/12/15 2:26 AM) Potassium Lvl 3.8 mEq/L [3.5-5.1 mEq/L] (01/12/15 2:26 AM) Chloride Lvl [95-109 106 mEq/L mEq/L] (01/12/15 2:26 AM) CO2 [24-32 mEq/L] 29 mEq/L (01/12/15 2: AM) AGAP [10.0-20.0 11.8 mEq/L mEq/L] (01/12/15 2:26 AM) CHEM PANEL Most recent to 1 oldest [Reference Range]: Creatinine Lvl 0.73 mg/dL [0.50-1.40 mg/dL] (01/12/15 2:26 AM) eGFR 121 mL/min/1.73m2 1 *NA* (01/12/15 2: AM) BUN [7-22 mg/dL] 9 mg/dL (01/12/15 2: AM) Glucose Lvl [70-99 97 mg/dL mg/dL] (01/12/15 2: AM) Total Protein 6.9 g/dL [6.4-8.4 g/dL] (01/12/15 2: AM) Albumin Lvl [3.5-5.0 3.5 g/dL g/dL] (01/12/15 2: AM) Globulin [2.0-4.0 3.4 g/dL g/dL] (01/12/15: AM) A/G Ratio [0.7-1.6] 1.0 (01/12/15 2: AM) Calcium Lvl 9.0 mg/dL [8.5-10.5 mg/dL] (01/12/15 2:26 AM) ALT [0-65 unit/L] 36 unit/L (01/12/15 2: AM) AST [0-37 unit/L] 35 unit/L (01/12/15 2:26 AM) Alk Phos [39-136 81 unit/L unit/L] (01/12/15 2: AM) Bili Total [0.2-1.3 0.3 mg/dL mg/dL] (01/12/15 2:26 AM) Bili Direct [0.0-0.3 0.1 mg/dL mg/dL] (01/12/15 2:26 AM) Bili Indirect 0.2 mg/dL [0.0-1.0 mg/dL] (01/12/15 2:26 AM) Lipase Lvl [73-393 103 unit/L unit/L] (01/12/15 2:26 AM) Lactic Acid Lvl 0.7 mMol/L [0.5-2.2 mMol/L] (01/12/15 2:26 AM) 1Result Comment: The eGFR is calculated [...] 1 oldest [Reference Range]: WBC [3.7-10.4 K/CMM] 6.0 K/CMM (01/12/15 2:26 AM) RBC [4.70-6.10 3.93 M/CMM M/CMM] *LOW* (01/12/15 2:26 AM) Hgb [14.0-18.0 g/dL] 10.9 g/dL *LOW* (01/12/15 2:26 AM) Hct [42.0-54.0 %] 34.0 % *LOW* (01/12/15 2:26 AM) MCV [80.0-94.0 fL] 86.6 fL (01/12/15 2:26 AM) MCH [27.0-31.0 pg] 27.8 pg (01/12/15 2:26 AM) MCHC [32.0-36.0 32.1 g/dL g/dL] (01/12/15 2:26 AM) RDW [11.5-14.5 %] 18.2 % *HI* (01/12/15 2:26 AM) Platelet [133-450 312 K/CMM K/CMM] (01/12/15 2:26 AM) MPV [7.4-10.4 fL] 7.5 fL (01/12/15 2:26 AM) Segs [45.0-75.0 %] 73.1 % (01/12/15 2:26 AM) Lymphocytes 18.4 % [20.0-40.0 %] *LOW* (01/12/15 2:26 AM) Monocytes [2.0-12.0 7.1 % %] (01/12/15 2:26 AM) Eosinophils [0.0-4.0 1.1 % %] (01/12/15 2:26 AM) Basophils [0.0-1.0 0.3 % %] (01/12/15 2:26 AM) Segs-Bands # 4.4 K/CMM [1.5-8.1 K/CMM] (01/12/15 2:26 AM) Lymphocytes # 1.1 K/CMM [1.0-5.5 K/CMM] (01/12/15 2:26 AM) Monocytes # [0.0-0.8 0.4 K/CMM K/CMM] (01/12/15 2:26 AM) Eosinophils # 0.1 K/CMM [0.0-0.5 K/CMM] (01/12/15 2:26 AM) Immunizations No data available for this section Procedures Procedure Date Related Diagnosis Body Site Resection of gastric ulcer by cautery Social History Social History Type Response Smoking Status Never smoker; Exposure to Tobacco Smoke None; Cigarette Smoking Last 365 Days No; Reg Smoking Cessation Counseling No Assessment and Plan No data available for this section
--- OUTSIDE RECORDS SUMMARY | 2018-06-19 18:22 | XMS REPORT ---
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 paraspinal muscles at le nazia L5-S1. Soft tissues: No T2 hyperintense inflammatory changes. Spinal cor d: Normal in morphology and signal intensity. The tip of the conus is at L1 Vertebrae: New focal area of STIR hyperintensity in the anterior aspect of the inferior endplate of L1 with a subchondral fracture line seen on T1 sequen ce (image 9, series 10 and image 9, series 11) represents the new acute inferi or endplate compression fracture. Unchanged chronic superior endplate compre ssion fracture and anterior wedging deformity of L1 approximately 30% loss of vertebral body height. No retropulsion of fracture fragment into the spinal ca nal. Diffuse abnormal T1 hyperintensity of the bone marrow signal may be relat ed to osteoporosis or prior radiation therapy. Chronic mild superior endplat e compression deformity of T6 and T12 vertebral body with approximately 10-15% loss of vertebral body height. No retropulsion of fracture fragment into the spinal canal. Status post recent kyphoplasty at L2 and L3 with expected postop erative changes and remote kyphoplasty at L4. Unchanged small amount of ceme nt material in the intervertebral disc space at L3-L4. No infection or neopl asm. Degenerative changes: Thoracic spine: No abnormality. Subha mbar spine: Mild degenerative disc disease and disc bulge that effaces anterio r thecal sac at L2-L3 and L3-L4 without significant canal stenosis. Mild santiago ateral facet arthrosis at L3-L4 and L4-L5. No significant foraminal stenosis. Incidental finding: Bibasilar atelectasis and small bilateral pleural eff usion. IMPRESSION: 1. Interval development of inferior endplate compr ession fracture of L1. 2. Expected postoperative changes from recent kypho plasty at L2-L3 and remote kyphoplasty at L4. Chronic mild superior endplate c ompression deformity of T6 and T12. 3. Diffuse abnormal bone marrow sign al possibly related to prior radiation therapy and/or osteoporosis. Signed by: Dr. Luh Catsro M.D. on 11/10/2017 11:16 PM Dictated By: LUH CASTRO MD 231 [id number] Transcribed By: MIKEY on 11/10/17 2316 COPY TO: NATHANIEL SAM MD MRI SPINE THORACIC [id number] 21:25:00 [place] [address] Patient Name: ALTAGRACIA SIMS MR #: [id number] : 1980 Age/Sex: 37/M Req #: [id number] Adm Physician: NATHANIEL SAM MD Ordered by: NATHANIEL SAM MD Report #: [id number] Location: MED/SURG2 Room/Bed: [facility] Procedure: [id number] MRI/MRI SPINE THORACIC WOW Exam Date: Exam Time: REPORT STATUS: Signed Examination: MRI of thoracic and lumbar spine wi th and without contrast. History:Back pain, status post fall, history of th oracic spine fracture. History of Crohn's disease, glioblastoma status post ch emoradiation, large bowel resection, history of recent kyphoplasty. Bret rison studies:MRI lumbar spine from 11/03/[address] abdomen and pelvis from 11/2017. Technique: Sagittal T2, T1 and STIR, coronal and axial T2. Ax ial PD and T1 precontrast of lumbar spine. Post contrast axial and sagittal T1 Intravenous contrast: 20 cc cc of MultiHance. Findings: Suboptimal alanis luation due to motion artifact, particularly in the axial T2 images of the tho racic spine. Alignment: Normal thoracic kyphosis. No scoliosis. Mild stra ightening of the lumbar lordosis. Number of lumbar vertebral bodies:Five P araspinal soft tissues: Mild fatty atrophy of posterior paraspinal muscles at level L5-S1. Soft tissues: No T2 hyperintense inflammatory changes. Spinal c ord: Normal in morphology and signal intensity. The tip of the conus is at L1 Vertebrae: New focal area of STIR hyperintensity in the anterior aspect of the inferior endplate of L1 with a subchondral fracture line seen on T1 sequ ence (image 9, series 10 and image 9, series 11) represents the new acute infe rior endplate compression fracture. Unchanged chronic superior endplate comp ression fracture and anterior wedging deformity of L1 approximately 30% loss o f vertebral body height. No retropulsion of fracture fragment into the spinal canal. Diffuse abnormal T1 hyperintensity of the bone marrow signal may be rel ated to osteoporosis or prior radiation therapy. Chronic mild superior endpl ate compression deformity of T6 and T12 vertebral body with approximately 10-1 5% loss of vertebral body height. No retropulsion of fracture fragment into th e spinal canal. Status post recent kyphoplasty at L2 and L3 with expected post operative changes and remote kyphoplasty at L4. Unchanged small amount of ce ment material in the intervertebral disc space at L3-L4. No infection or tobi plasm. Degenerative changes: Thoracic spine: No abnormality. Lumbar spine: Mild degenerative disc disease and disc bulge that effaces anter ior thecal sac at L2-L3 and L3-L4 without significant canal stenosis. Mild b ilateral facet arthrosis at L3-L4 and L4-L5. No significant foraminal stenosis . Incidental finding: Bibasilar atelectasis and small bilateral pleural e ffusion. IMPRESSION: 1. Interval development of inferior endplate com pression fracture of L1. 2. Expected postoperative changes from recent kyp hoplasty at L2-L3 and remote kyphoplasty at L4. Chronic mild superior endplate compression deformity of T6 and T12. 3. Diffuse abnormal bone marrow si gnal possibly related to prior radiation therapy and/or osteoporosis. Signed by: Dr. Luh Castro M.D. on 11/10/2017 11:16 PM Dictated By: LUH CASTRO MD 2 316 Transcribed By: MIKEY on 11/10/17 7649 COPY TO: NATHANIEL SAM SPECIAL PROCEDURE IN CATH [id number] 08:26:00 [place] [address] Patient Name: ALTAGRACIA SIMS MR #: [id number] : 1980 Age/Sex: 37/M Req #: [id number] [facility] Physician: NATHANIEL SAM MD Ordered by: NATHANIEL SAM MD Report #: [id number] Location: MED/SURG Room/Bed: [facility] Procedure: [id number] IR/SPECIAL PROCEDURE IN BUILDING CONSULTANT Exam Date: Exam T emma: REPORT STATUS: Signed History:37 yo male with multiple comorbidit ies, Crohn's disease, glioblastoma, large bowel resection, chemotherapy, radia tion therapy, present with acute L2 and L3 compression fractures failing conse rvative therapy and prior L4 vertebroplasty Comparison studies:CT 018 MRI Lumbar Spine 11/03/2017 Procedure L2 and L3 Vertebral Augmentation Codes: ,32384 Percutaneous vertebral augmentation, 1 vertebral body, u nilateral or bilateral cannulation, inclusive of all imaging guidance; lumbar ,39565 Percutaneous vertebral augmentation,1 vertebral body, unilateral or bi lateral cannulation, inclusive of all imaging guidance; each additional thorac ic or lumbar vertebral body, , , , , ,04812 Moderate Sedation provid ed by the same physician performing the diagnostic or therapeutic service that the sedation supports, for patients 5 years of age or older for the first 30 minutes,60524 each additional 15 minutes of intra service time Sedation: Mo derate sedation administered by interventional radiology nurse under supervisi on of the interventional radiologist with continuous hemodynamic monitoring fo r 60 minutes. Physician: Ilir Mcnair MD Medications: Fentanyl 200 mcg I V, Versed 4mg IV Antibiotics: Ancef 1 gm IV administered by slow infusion 15 prior to start of case. Fluoroscopy : 3.2 minutes Contrast: 0 ml Radiati on exposure:811.7 cGycm2 Technique: Following informed written consent, p lawrence was placed in a prone position on the angiography table. According to universal protocol, preprocedural time-out was performed with team members agr eeing on patient identity, correct site and procedure to be done. The sk in was clean, prepped and draped in the usual sterile fashion. Transitional Care Liaison images were obtained. Local and periosteal anesthesia was injected and conscious sed ation was administered. Then the L3 vertebral body was accessed under fluoros copic guidance using a unipedicular approach. Cavity creation was performed u sing an inflatable balloon tamp. Then under fluoroscopic guidance 3 cc's of [place] HV PMMA was injected into the vertebral body. Then the L2 vertebral bod y was accessed under fluoroscopic guidance using a unipedicular approach. Cav ity creation was performed using an inflatable balloon tamp. Then under fluor oscopic guidance 2 cc's of [place] HV PMMA was injected into the vertebral bod y. No cement extravasation was seen. Needle was then removed and hemostasis was acquired by manual compression. A sterile dressing was applied. Procedur e was well tolerated and the patient remained neurologically intact and unchan ged during and following the procedure. Findings: L2 and L3 compression fracture. Post procedure imaging demonstrates bilateral distribution of PMMA without cement extravasation. Outside prior L4 vertebroplasty with disk space extravasation. Impression: 1. L2 and L3 vertebral augmentation w ith inflatable balloon tamp, technically and clinically successful. 2. P er PQRS criteria, patient should be screened for osteoporosis. Signed by: Fransico Mcnair M.D. on 11/10/2017 8:55 AM Dictated By: ILIR MCNAIR MD 1014 Transcribed By : MIKEY on 11/17/17 1014 COPY TO: NATHANIEL SAM MD CT ABDOMEN/PELVIS [id number] 03:38:00 [place] [address] Patient Name: ALTAGRACIA SIMS MR #: [id number] : 1980 Age/Sex: 37/M Req #: [id number] Adm Physician: NATHANIEL SAM MD Ordered by: GEOVANNA GARCIA MD Report #: [id number] Location: MED/SURG Room/Bed: [facility] Procedure: [id number] CT/CT ABDOMEN/PELVIS WO Exam Date: Exam Time: REPORT STATUS: Signed EXAM: CT ABDOMEN/PELVIS WO DATE: 11/06/2017 2:43 AM INDICATION: Crohn's disease, extensive surgical history COMPARISON: None TECHNIQUE: The abdomen and pelvis were scanned using a multidetector helical scanner. Coronal and sagittal reformations were obtained. CT low dose tech niques were utilized, as applicable. IV Contrast: 0 ml Isovue 300/370 FI NDINGS: Lack of IV contrast decreases sensitivity in evaluating abdominal and pelvic organs. LOWER THORAX: Motion artifact. Partially imaged central venou s catheter tip within the right atrium. Mild bibasilar opacity, likely atelect asis. Trace pleural fluid or thickening LIVER/BILIARY: Likely underlying hepatic steatosis. No focal lesions seen. GALLBLADDER: Surgically absent SPLEEN: Unremarkable PANCREAS: Unremarkable ADRENALS: No nodules KIDNEY S: No stones. No hydronephrosis. GI TRACT: G-tube terminates within the gastric antrum. No evidence of bowel obstruction or wall thickening. VESS ELS: Infrarenal IVC filter in place with the struts protruding outside the lum en. PERITONEUM/RETROPERITONEUM: No free air or fluid LYMPH NODES: No lymphad enopathy REPRODUCTIVE ORGANS/BLADDER: Unremarkable SOFT TISSUES: Intra muscular fat density and calcification along the right adductor muscle (image 99) and left internus obturator, which may be posttraumatic (sequelae of calci fic myonecrosis). BONES: Healing right inferior pubic ramus and rib fractures. Prior vertebral plasty at L4. Mild compression deformities at L2 and L3 and c entral endplate compression at L1. IMPRESSION: No acute abnormality on noncontrast evaluation. Signed by: Dr Greg Thorne MD on 11/06/2017 3:48 AM Dictated By: GREG THORNE MD 7 Transcribed By: MIKEY on 11/06/17347 COPY TO : GEOVANNA GARCIA MD ABDOMEN-1VIEW (KUB)2017-11-04 16:54:00 [place] [address] Patient Name: ALTAGRACIA SIMS MR #: [id number] : 1980 Age/Sex: 37/M Req #: [id number] Adm Physician: NATHANIEL ASM MD Ordered by: STACY JOLLY MD Report #: [id number] Locati on: MED/SURG Room/Bed: [facility] Procedure: [id number] DX/ ABDOMEN-1VIEW (KUB) Exam Date: 11/04/17 Exam Time: 1 545 REPORT STATUS: Signed Exam: Abdominal film Clinical Histor y: Left lower quadrant abdominal pain for 3 days Comparison: None. DIS CUSSION: Frontal view of the abdomen shows a nonobstructive bowel gas pattern with mild amount of retained stool.Likely high riding cecum. No air filled, di lated loops of bowel. There are no abnormal calcifications.No pneumoperitoneu m. No acute bony abnormalities. Vertebroplasty changes L3. IVC filter in place . IMPRESSION: 1. Nonobstructive bowel gas pattern. The staff phys laith below has personally reviewed this exam on the date of dictation. Signed by: Dr. Rodrigo Zhang M.D. on 11/04/2017 4:55 PM Dictated By: RODRIGO ZHANG MD 54 COPY TO: WIL JOLLY MD MRI SPINE LUMBAR [id number] 23:44:00 [place] [address] Patient Name: ALTAGRACIA SIMS MR #: [id number] : 1980 Age/Sex: 37/M Req #: [id number] Adm Physician: NATHANIEL SAM MD Ordered by: DUANE JEREZ MD Report #: [id number] Location: [facility] Room/Bed: [place] [address] Procedure: [id number] RI/MRI SPINE LUMBAR WO Exam Date: Exam Time: REPORT STATUS: Signed EXAMINATION: MRI of the lumbar spine without contrast HISTORY: Broke back 2 weeks ago, status post fall today with worsening pa in, evaluate for epidural abscess. COMPARISON: Lumbar spine CT performed on the same day TECHNIQUE: Sagittal T1, T2, STIR; axial T2 and proton density. Image quality: Motion artifact limits evaluation of most of the sequences in spite of sedation. Patient couldn't remain still. FINDINGS: It is ass umed that there are 5 lumbar vertebrae. Curvature/Alignment: Normal lordos is. Vertebrae: -Prominent increased T1 bone marrow signal intensity rel ated to fatty replacement, secondary to osteoporosis, disproportionate for pat ient's age and gender. -Again noted moderate compression fractures of the L2 , L3 and L4 vertebral bodies, with subchondral bone marrow edema, consistent w ith recent fractures. Again there is decreased vertebral body height by approx imately 40-50% without posterior retropulsion. Status post kyphoplasty/vertebr oplasty of L4 with a small amount of cement within the L3-L4 disc, better visu alized with CT performed on the same day. -Mild chronic compression fracture of the L1 vertebral body, with depression of the superior endplate and decrea sed vertebral body height by approximately 30% centrally, no posterior retropu lsion. Conus: Normal, terminating at L1 Cauda equina: Unremarkab le. Lower thoracic: Unremarkable. Paraspinal soft tissues: Unremar kable. Degenerative changes: L1-L2: Unremarkable. L2-L3: Mild symmetric folds and posterior processes. Minimal canal and foraminal narr owing. L3-L4: Mild symmetric disc bulge and facet processes. Mild canal and foraminal narrowing. L4-L5: Minimal disc bulge and facet arthros is without stenosis. Left posterior paraspinal musculature edema from L4 to L5 which may correspond to muscle sprain. L5-S1: Minimal disc bulge and facet arthrosis without stenosis. IMPRESSION: Suboptimal study due to motion artifact. 1. No evidence of epidural abscess in this unenhanced st udy. 2. Acute osteoporotic compression fracture of the L2, L3 and L4 vertebr al bodies without posterior retropulsion or canal stenosis. Comparison to prio r studies is advised to determine stability. 3. Mild chronic compression fr actures of the T12 and L1 vertebral bodies. 4. Mild degenerative canal and fo raminal stenosis at L3-L4. 5. Left paraspinal muscle edema at L4-L5 may corre spond to muscle sprain, which could explain patient's new pain. Signed by: Dr. Dayanara Trevino M.D. on 11/03/2017 11:55 PM Dictated By: DAYANARA TREVINO MD 4614 Transcribed By: Quique CAMPUZANO on 11/03/17 1541 COPY TO: DUANE JEREZ MD CT LUMBAR SPINE [id number] 20:58:00 [place] [address] Patient Name: ALTAGRACIA SIMS MR #: [id number] : 1980 Age/Sex: 37/M Req #: [id number] Adm Physician: Ordered by: DUANE JEREZ MD Report #: [id number] Location: ER Room/Bed: Procedure: [id number] CT/CT LUMBAR SPINE WO Exam Obi e: 11/03/17 Exam Time: 2019 REPORT STATUS: Sign ed EXAMINATION: CT of the lumbar spine HISTORY: Broke back 2 weeks ago, acute pain COMPARISON: None available TECHNIQUE: Multidetector helical axial images were obtained without contrast from L1 to S1. The images were recon structed using bone and soft tissue algorithms and were viewed in axial, sagit jocelyne, and coronal planes. Dose modulation, iterative reconstruction, and/or weight based adjustment of the mA/kV was utilized to reduce the radiation dose to as low as reasonably achievable. FINDINGS: Alignment: Normal alignment and lordosis. Vertebral bodies: -Diffuse osteopenia L3-L4 intervertebral disc. -Age indeterminate likely chronic moderate compression fr acture of the L2, L3 and L4 vertebral bodies, with decreased vertebral body he ight by approximately 40-50%, with depression of the superior endplate. Minima l about 2 mm posterior retropulsion of the superior endplates of L2, L3 and L4 , with mild canal narrowing at L3-L4. -Mild chronic compression fracture of the L1 vertebral body, with depression of the superior endplate and decreased vertebral body height by approximately 30% centrally, no posterior retropulsio n. Minimal chronic anterior wedging of the T12 vertebral body. -Status po st percutaneous vertebral cement injection at L4, with small amount of cement extruded within the L3-L4 intervertebral disc. Paraspinal muscles: Mild a trophy of the lumbosacral spinal muscles. Partially visualized IVC filter. Intervertebral disks: L1-L2: Normal. L2-L3: Minimal symm etric disc bulge without stenosis. L3-L4: Mild symmetric disc bulge and face t arthrosis. Mild canal and foraminal narrowing. L4-L5: Mild symmetric dis c bulge without significant stenosis. L5-S1: Minimal symmetric disc bulge wi thout stenoses. IMPRESSION: 1. Age-indeterminate likely chronic moder ate compression fractures of the L2, L3 and L4 vertebral bodies. Comparison to prior studies is recommended to determine stability of these findings. 2. Mild chronic compression fractures of the T12 and L1 vertebral bodies. 3. Minimal posterior retropulsion and disc bulge at L3-L4 results in mild canal and foraminal narrowing. 4. Status post percutaneous vertebral cement in jection at L4. 5. Severe osteopenia. Signed by: Anuradha Curiel on 11/03/2017 9:07 PM Dictated By: DAYANARA TREVINO MD Electronically Tracie d By: DAYANARA TREVINO MD on 11/03/172106 Transcribed By: MIKEY on 11/03/172106 COPY TO: DUANE JEREZ MD CHEST SINGLE (PORTABLE)2017-11-03 20:38:00 [place] [address] Patient Name: ALTAGRACIA SIMS MR #: [id number] : 1980 Age/Sex: 37/M Req #: [id number] Adm Physician: Ordered by: DUANE JEREZ MD Report #: [id number] Location: ER Room/Bed: Procedure: [id number] DX/CHEST SINGLE (PORTABLE) Exa m Date: 11/03/17 Exam Time: 2024 REPORT STATUS: Signed EXAMINATION: CHEST SINGLE (PORTABLE) INDICATION: COMPARISON: None FINDINGS: AP view TUBES and LINES: Left central venous catheter with tip overlying the superior right atrium. LUNGS: Lungs are well inflated. Medial right lower lobe consolidation. PLEURA: No pleural effusion or pneumothorax. HEART AND MEDIASTINUM: The cardiomediastinal silhouette is unremarkable.. BONES AND SOFT TI SSUES: No acute osseous lesion. Soft tissues are unremarkable. UPPER AB DOMEN: No free air under the diaphragm. IMPRESSION: Right medial low er lobe consolidation suggestive of pneumonia. Recommend follow-up chest radio graph in 4-6 weeks. Signed by: Dr. Alysha Sequeira M.D. on 2017 8:39 PM Dictated By: ALYSHA SEQUEIRA MD Electronically Sign ed By: ALYSHA SEQUEIRA MD on 11/03/172038 Transcribed By: MIKEY on 0 11/03/172038 COPY TO: DUANE JEREZ MD
--- NOTE | 2018-06-19 18:52 | NUR ---
REPORT TO MITA ATKINS
[2018-06-19] MEDS ORDERED: MORPHINE SULFATE 2 MG/ML SYR 1ML IV STA (19:21)
[2018-06-19] MEDS ORDERED: SODIUM CHLORIDE 0.9% 1000ML 1,000 ML IV SCH (19:30)
[2018-06-19] MEDS ORDERED: PROMETHAZINE 12.5MG/ NACL 0.9% 12.5 MG/50 ML BAG IV ONE (19:30)
--- NOTE | 2018-06-19 19:40 | NUR ---
ATTEMPTED PERIPHERAL IV ACCESS X2, UNSUCCESSFUL; PT STATES "I HAVE NO GOOD VEINS LEFT. THEY ALWAYS ACCESS MY PORT; ER AWARE AND OKAY TO ACCESS PORT A CATH
--- NOTE | 2018-06-19 19:50 | NUR ---
REPORT GIVEN TO CAITY STRANGE RN AT [facility]; DOC TO DOC DONE; WAITING ON EMS TRANSPORT
--- NOTE | 2018-06-19 19:55 | NUR ---
[facility] CALLED FOR TRANSPORT
[2018-06-19] MEDS ORDERED: PANTOPRAZOLE 40 MG 10ML VIAL IV NR (20:00)
--- NOTE | 2018-06-19 20:03 | Diagnostic Imaging Report ---
EXAMINATION: PA and lateral views of the chest. COMPARISON: None CLINICAL HISTORY: Vomiting DISCUSSION: Lines/tubes: Left chest port with tip overlying the right atrium. Lungs: The lungs are well inflated and clear. No pneumonia or pulmonary edema. Pleura: No pleural effusion or pneumothorax. Heart and mediastinum: The cardiomediastinal silhouette is normal. Bones and soft tissues: No acute bony abnormalities. IMPRESSION: No acute cardiopulmonary abnormalities. Signed by: Dr. Eduin Allen M.D. on 06/19/2018 8:00 PM
--- NOTE | 2018-06-19 20:10 | NUR ---
PER ADMISSIONS - PT HAS PREVIOUSLY BEEN TO OUR FACILITY WITH THE ; PT HAS NO ID CARD TO VERIFY BIRTHDATE SO THEY ARE UNBALE TO CHANGE BIRTHDAY AT THIS TIME OR MERGE HIS MEDICAL RECORD ACCOUNTS;
[2018-06-19] MEDS ORDERED: MORPHINE SULFATE INJ 4 MG/ML INJ 1ML IV NR (20:30)
--- NOTE | 2018-06-19 20:53 | NUR ---
PT TO [facility] VIA [facility]
--- NOTE | 2018-06-19 22:26 | Diagnostic Imaging Report ---
EXAM: CT Abdomen and Pelvis WITHOUT contrast INDICATION: Vomiting. Abdominal pain. History of Crohn's disease. COMPARISON: None. TECHNIQUE: Abdomen and pelvis were scanned utilizing a multidetector helical scanner from the lung base to the pubic symphysis without administration of IV contrast. Absence of intravenous contrast decreases sensitivity for detection of focal lesions and vascular pathology. Coronal and sagittal reformations were obtained. Routine protocol was performed. IV CONTRAST: None. Intravenous contrast was held due to history of allergy. ORAL CONTRAST: Water RADIATION DOSE: Total DLP: 283.43 mGy*cm Estimated effective dose: (DLP x 0.015 x size factor) mSv COMPLICATIONS: None FINDINGS: LINES and TUBES: Distal tip of a catheter partially visualized in the right atrium. LOWER THORAX: Bibasilar dependent atelectasis. HEPATOBILIARY: No focal hepatic lesions. No biliary ductal dilation. GALLBLADDER: There are cholecystectomy clips. SPLEEN: No splenomegaly. PANCREAS: No focal masses or ductal dilatation. ADRENALS: No adrenal nodules KIDNEYS/URETERS: No hydronephrosis. No cystic or solid mass lesions. Punctate calculus in the upper pole of the left kidney on sagittal image 97 Nonspecific bilateral perinephric stranding. GI TRACT: No abnormal distention, wall thickening, or evidence of bowel obstruction. Appendix is normal. PELVIC ORGANS/BLADDER: Dystrophic calcification in the right hemipelvis may represent phleboliths. LYMPH NODES: No lymphadenopathy. VESSELS: IVC filter. PERITONEUM / RETROPERITONEUM: No free air or fluid. BONES: Remote fracture of the right inferior pubic ramus. Compression wedge deformity of L1 of ascending age. Compression fractures of L2, L3 and L4 status kyphoplasty with extruded methylmethacrylate into the L3-L4 disc space. SOFT TISSUES: Unremarkable. IMPRESSION: 1. No acute abdominal pelvic abnormality. 2. Nonobstructing punctate left renal calculus. 3. Status post cholecystectomy. No significant biliary dilatation. Signed by: Dr. Gaye Quiroz M.D. on 06/19/2018 10:22 PM
[2018-06-19] MEDS ORDERED: DICYCLOMINE HCL 20 MG/2 ML VIAL IM ONE (22:30)
[2018-06-20] VITALS (7 sets, daily range): BP systolic 116–132; BP diastolic 74–90
[2018-06-20 00:16] LABS: BASOPHILS % 0.3 % (0.0-1.0); EOSINOPHILS # (AUTO) 0.2 (0.0-0.4); EOSINOPHILS % 2.7 % (0.0-6.0); HEMATOCRIT 28.8 % (38.2-49.6); HEMOGLOBIN 8.9 g/dL (14.0-18.0); LYMPHOCYTES # (AUTO) 0.7 (1.0-3.2); MEAN CORPUSCULAR HEMOGLOBIN 24.7 pg (28-32); MEAN CORPUSCULAR HGB CONC 30.9 g/dL (31-35); MONOCYTES # (AUTO) 0.6 (0.2-0.8); MONOCYTES % 8.6 % (4.4-11.3); NEUTROPHILS # (AUTO) 5.8 (2.1-6.9); PLATELET COUNT 318 x10e3/uL (140-360); RED CELL DISTRIBUTION WIDTH 18.3 % (11.7-14.4)
[2018-06-20] MEDS ORDERED: PROTONIX 200MG/SODIUM CHLORIDE 0.9% 250 ML BAG IV SCH (00:30)
[2018-06-20] MEDS ORDERED: OCTREOTIDE ACETATE 500 MCG in SODIUM CHLORIDE 0.9% 500ML 1 ML IV SCH (00:30)
[2018-06-20] MEDS ORDERED: OCTREOTIDE ACETATE 0.05 MG/ML AMP IV ONE (00:30)
[2018-06-20] MEDS: MORPHINE SULFATE INJ 4 MG/ML INJ 1ML IV PRN ×2 (01:27→05:38)
[2018-06-20] MEDS: ONDANSETRON HCL INJ 2MG/ML 2ML 2 MG/ML VIAL IV PRN ×2 (01:28→05:39)
[2018-06-20] MEDS ORDERED: OCTREOTIDE ACETATE 500 MCG in SODIUM CHLORIDE 0.9% 250ML 249 ML IV SCH (01:30)
--- OUTSIDE RECORDS SUMMARY | 2018-06-20 01:50 | XMS REPORT | Clinical Summary ---
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 Active promethazine (PHENERGAN) Take 25 mg by 0 25 MG tablet mouth every 4 (four) hours as needed for Nausea. Active levETIRAcetam (KEPPRA) Take 500 mg 0 500 MG tablet by mouth daily. Active methotrexate 2.5 MG Take 5 mg by 0 tablet mouth twice a week. Active predniSONE (DELTASONE) 20 Take 20 mg by 0 MG tablet mouth daily. Active Problems Problem Noted Date Hematemesis with nausea 08/23/2015 Social History Date Tobacco Use Types Packs/Day Years Used Smoker, Current Status Unknown Alcohol Use Drinks/Week oz/Week Comments No Sex Assigned at Date Recorded Not on file Industry Job Start Date Occupation Not on file Not on file Not on file Travel End Travel History Travel Start No recent travel history available. Last Filed Vital Signs Not on file Plan of Treatment Not on file Results Not on fileafter 06/19/2017 Advance Directives For more information, please contact: [facility] [address] [place], [place] [id number] Date Inactivated Comments Code Status Date Activated 08/25/2015 1:16 PM Full Code 08/24/2015 3:42 AM This code status was determined by: Patient
[2018-06-20] MEDS: D5.45%NS/KCL 20MEQ 1,000 ML IV SCH ×4 (01:59→20:40)
--- NOTE | 2018-06-20 02:30 | NUR ---
Received patient via stretcher with D5 1/2 Ns running at 125 ml/hr via amparo cath. Assisted to bed. Patient is alert and oriented. No complaints at this time. Oriented to room. Call light within reach.
--- NOTE | 2018-06-20 03:15 | NUR ---
Spoke with Pharmacist regarding patient's order for protonix and sandostatin. Pharmacist stated they are not compatible. Patient has only one access thru amparo cath. Patient stated that he has not been stuck since he started chemotherapy and amparo cath is the only access he has. Will notify .
--- NOTE | 2018-06-20 03:23 | NUR ---
Called Dr. Andino regarding patient's order for protonix drip and sandostatin drip not compatible according to Pharmacy. MD stated to give the protonix first until Md see patient and decide regarding Sandostatin drip.
[2018-06-20] MEDS: PANTOPRAZOL 40MG/SOD CHL 0.9% 50 ML IV SCH ×4 (03:40→16:30)
--- NOTE | 2018-06-20 03:40 | NUR ---
Patient refused compression stockings
[2018-06-20 06:40] LABS: HEMATOCRIT 23.8 % (38.2-49.6); HEMOGLOBIN 7.1 g/dL (14.0-18.0)
--- NOTE | 2018-06-20 07:10 | NUR ---
PT RESTING IN BED AA0X3. PT FAMILY IS AT BEDSIDE PT C/O OF PAIN UNRELIEVED WITH MORPHINE AND NAUSEA UNRELIEVED BY ZOFRAN PT HAD AN EPISODE OF VOMITING BRIGHT RED BLOOD ABOUT AN HOUR AGO WITH UTILITY INSPECTOR EMESIS BAGS ARE AT BEDSIDE PT IS SITTING UP AT THIS TIME WILL GET ORDERS TO CHANGE PAIN AND NAUSEA MEDS PER PT REQUEST (NEEDS DILAUDID, PHENERGAN) FOR RELIEF (IS WHAT HE TAKES AT HOME) PT IS ON CANCER PT AND RECEIVED CHEMO AND RADIATION, HAS A LEFT PORT ACCESS WITH FLUIDS AND PROTONIX DRIP RUNNING. SITE IS CLEAN AND DRY PT IS NPO DUE TO VOMITING WILL CONTINUE TO MONITOR CLOSELY , SIDE RAILX2, BED WHEELS LOCKED, CALL LIGHT IS WITHIN EASY REACH, INSTRUCTED TO CALL FOR ASSISTANCE IF NEEDED
--- NOTE | 2018-06-20 07:11 | NUR ---
DR. REES NOTIFIED REGARDING HEMOGLOBIN AND HEMATOCRIT RESULT. NEW ORDERS RECEIVED.
--- NOTE | 2018-06-20 07:19 | NUR ---
ORDER RECEIVED FROM DR. REES, TO TRANSFER PATIENT TO [facility] FOR CLOSE MONITORING CONSULTATION TO DR. SALTER, TYPE AND SCREEN AND TO TRANSFUSE 2 UNITS OF BLOOD. DAY SHIFT NURSE IS AWARE AND ACKNOWLEDGE ORDERS.
[2018-06-20] MEDS ORDERED: HYDROMORPHONE 1MG/1ML INJ IV PRN (07:45)
[2018-06-20] MEDS ORDERED: ACETAMINOPHEN 325 MG TAB PO PRN (07:45)
[2018-06-20 08:18] LABS: INR 1.01; PROTHROMBIN TIME 13.8 seconds (11.9-14.5)
[2018-06-20 08:19] LABS: PARTIAL THROMBOPLASTIN TIME 39.4 seconds (23.8-35.5)
[2018-06-20 08:22] LABS: HEMATOCRIT 29.7 % (38.2-49.6); HEMOGLOBIN 8.8 g/dL (14.0-18.0)
[2018-06-20] MEDS: HYDROMORPHONE 2MG/ML 2 MG/ML ML IV PRN ×4 (08:27→20:40)
[2018-06-20] MEDS: PROMETHAZINE 25MG/ NS 50ML (IV) IV PRN ×3 (08:27→20:30)
[2018-06-20 08:29] LABS: ANION GAP 10.2 mmol/L (8-16); BLOOD UREA NITROGEN 7 mg/dL (7-26); BUN/CREATININE RATIO 9 (6-25); CALCIUM 8.9 mg/dL (8.4-10.2); CARBON DIOXIDE 25 mmol/L (22-29); CHLORIDE 105 mmol/L (98-107); CREATININE, SERUM 0.75 mg/dL (0.72-1.25); EST GLOMERULAR FILTRATION RATE > 60 ML/MIN (60-); GLUCOSE 142 mg/dL (74-118); POTASSIUM 4.2 mmol/L (3.5-5.1); SODIUM 136 mmol/L (136-145)
--- NOTE | 2018-06-20 08:58 | NUR ---
SPOKE WITH MD REES REGARDING NEW HGB LEVEL OF 8.8. ORDERS TO HOLD 2 BAG OF PRBC AT THIS TIME WILL MONITOR H+H CLOSELY
--- NOTE | 2018-06-20 12:24 | Diagnostic Imaging Report ---
EXAM: CHEST XRAY LINE PLACEMENT DATE: 06/20/2018 11:49 AM INDICATION:PICC placement COMPARISON: Chest x-ray, 06/19/2018 FINDINGS: Lines and tubes: Interval placement of right PICC which can be traced as low as the mid SVC. Stable appearance of left chest port with subclavian catheter extending to the upper atrial level. The distal portion of the subclavian catheter may obscure most distal portion of the PICC. Heart size normal. No focal pulmonary opacity, pleural effusion or pneumothorax. Upper abdomen unremarkable with right upper quadrant surgical clips noted. No acute bony abnormality. IMPRESSION: 1. No evidence for acute disease in the chest. 2. Interval placement of right PICC extending to the mid SVC. Stable appearance of left chest port with subclavian catheter. Signed by: Dr. Gavin Sadler M.D. on 06/20/2018 12:21 PM
--- NOTE | 2018-06-20 12:47 | NUR ---
PT STATES HE HAS , GAVE SELF PAY PACKET IN CASE OF NEED FOR FOLLOW UP IN THE COMMUNITY.
[2018-06-20 13:09] LABS: HEMATOCRIT 28.6 % (38.2-49.6); HEMOGLOBIN 8.7 g/dL (14.0-18.0)
--- NOTE | 2018-06-20 14:46 | History and Physical ---
CHIEF COMPLAINT: Hematemesis. HISTORY OF PRESENT ILLNESS: This is a 38-year-old male, who is a very poor historian, reports that he has a history of GBM in the past, diagnosed in [place] in which he had a transphenoidal resection, also reports having some bowel resection requiring a PEG tube, who comes into the ED with reports of hematemesis ongoing for the last several days. The patient reported yesterday to the ER due to the hematemesis. He reports that he was on chemoradiation several weeks ago, but unable to verify. I discussed with him where he received these treatments, he states that he had them done in [place], but he recently moved here to [place]. Currently, I am not sure about his true diagnoses, but based on his story, he reports that he has been having these issues for several weeks now to months. The patient denies any chest pain, palpitation. He denies any nausea, but does have hematemesis. The patient is seen and evaluated at bedside on the medical floor. Currently, he does have some blood in the trash can concerning for underlying hematemesis. REVIEW OF SYSTEMS: Pertinent positives: Hematemesis. Pertinent negatives: Denies any chest pain, palpitation, nausea, cough, congestion, fever, chest pain, shortness of breath, abdominal pain, or any other complaints. The rest of 14-point review of systems have been reviewed with the patient and are negative. ALLERGIES: TO NSAIDS, IODINE, KETOROLAC, TRAMADOL PAST MEDICAL HISTORY: He reports having some GBM brain cancer, but I do not see a craniotomy. I do not see any kind of incisional relation in his brain, but he reports having transsphenoidal resection, reports bowel resections with PEG tube placement. Reports Crohn disease. PAST SURGICAL HISTORY: Bowel resections with PEG tube, questionable transphenoidal resection of a GBM tumor in his brain. FAMILY HISTORY: Hypertension and diabetes. SOCIAL HISTORY: No drugs. No alcohol. He reports he does smoke. PHYSICAL EXAMINATION: VITAL SIGNS: Temperature 96.8, pulse 70, respiratory rate is 18, blood pressure is 130/85, pulse ox is 95% on room air. GENERAL: Not in acute distress. Alert and oriented x3. Cooperative on examination. HEENT: Head is normocephalic and atraumatic. Eyes; pupils are equal, round, and reactive to light bilaterally. Extraocular movements are intact bilaterally. Throat, no evidence of erythema or exudates in the posterior pharynx. Has poor dentition. NECK: Supple. Good range of motion. PULMONARY: Clear to auscultation bilaterally. No wheezing, no rales, no rhonchi, no crackles appreciated. CARDIOVASCULAR: Positive S1, S2. No murmurs, rubs, or gallops appreciated. ABDOMEN: Soft, nondistended, and nontender to palpation. Bowel sounds present. MUSCULOSKELETAL: Strength is 5/5 throughout. No evidence of any muscle deficits on examination. No weakness appreciated. NEUROLOGICAL: Cranial nerves 2 through 12 grossly intact. No evidence of any neurological deficits on exam. SKIN: Intact. Warm to touch. Good cap refill. PSYCHIATRIC: Normal affect and mood. EXTREMITIES: No edema. Good range of motion throughout. LABORATORY DATA: Labs show white count was 7.3; hemoglobin 8.9, did go to 7.1 then after repeat stat shows 8.8; hematocrit is 29.7; platelets of 318. Coagulation; PT 13, INR 1, PTT 39. Chemistry; sodium 133, potassium 4.3, chloride 105 bicarb 25, anion gap of 10, BUN is 7, creatinine is 0.75, glucose is 142, calcium is 8.9. No other studies. MICROBIOLOGY: None. IMAGING STUDIES: Chest x-ray shows no evidence of any cardiopulmonary abnormality. CT abdomen and pelvis shows no acute abdominal or pelvic abnormality. Nonobstructing left renal calculus. Status post cholecystectomy, no significant biliary dilatation. IMPRESSION: 1. Hematemesis, concerning for upper gastrointestinal bleed. 2. Questionable history of brain tumor with GBM. 3. Chronic pain syndrome. 4. History of bowel resection with history of PEG tube. 5. Anemia concerning for upper gastrointestinal bleed. PLAN: At this time, the patient is on a Protonix drip, start on octreotide drip. We accessed his port. We are going to get a stat PICC line, transferred to ICU. Type and screen and whole 2 units of blood. Repeat hemoglobin was shown to be 8.8, initially this morning showed 7.1, repeat q.6 h. H and H's. He is not on any home medications at this time. We are going to put pain control, antinausea medications. Monitor his hemoglobin closely. GI has been consulted. We will likely need an EGD. Make n.p.o. at this time and with IV fluids. Get a.mLucas labs. MD LOAN Guzmán/WILLIAM /[id number]
--- NOTE | 2018-06-20 16:58 | NUR ---
ramona iv protonix drip and iv sandostatin iv per md sy orders pt signed consent for egd at this time
[2018-06-20] MEDS ORDERED: PANTOPRAZOLE 40 MG 10ML VIAL IV SCH (17:00)
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
[2018-06-20 18:39] LABS: HEMATOCRIT 29.3 % (38.2-49.6); HEMOGLOBIN 8.8 g/dL (14.0-18.0)
--- NOTE | 2018-06-20 19:10 | NUR ---
Report taken from neda Cantor.walking rounds done.stable condition.
--- NOTE | 2018-06-20 19:30 | NUR ---
Assessment done.no resp.distress.abd pain voiced 07/06.right upper arm picc line is patent.iv fluid is running to left chest port o cath.bed locked and in lowest position.phone and call light within reach.instructed to call for assistance as needed.
--- NOTE | 2018-06-20 21:20 | NUR ---
REPORT GIVEN TO WILBERT PARRA IN [facility].
--- NOTE | 2018-06-20 21:27 | NUR ---
Transferred to [facility] room #197 in a wheel chair in as table condition with all the belongings.
--- NOTE | 2018-06-20 21:55 | NUR ---
Called to to get order and notified about patient's worse pain. said keep on same medicines. NNO.
--- NOTE | 2018-06-20 22:05 | NUR ---
Report received from WILBERT Cox. Patient admitted in unit from Med-Surg 1(113) by bed @ 4463. Patient received alert/oriented x3. Patient companied pain on his stomach.WILBERT Cox Medicated his pain medicines before transferred. Patient throw up small amount of blood before transferred. Patient stated that he had been throw up 2-3times today. awarded. Head to assessment completed.no skin breakdown noted. Patient instructed call for help as needed,verbalized understand. Bed in lower position,locked. Will continue to monitor.
[2018-06-21] VITALS: BP 142/88
[2018-06-21 00:11] LABS: HEMATOCRIT 28.4 % (38.2-49.6); HEMOGLOBIN 8.6 g/dL (14.0-18.0)
[2018-06-21] MEDS: HYDROMORPHONE 2MG/ML 2 MG/ML ML IV PRN ×2 (00:34→05:09)
[2018-06-21] MEDS: PROMETHAZINE 25MG/ NS 50ML (IV) IV PRN (02:31)
[2018-06-21 03:43] VITALS: BP 134/73
[2018-06-21 05:44] LABS: BASOPHILS # (AUTO) 0.1 (0.0-0.1); BASOPHILS % 0.7 % (0.0-1.0); EOSINOPHILS # (AUTO) 0.2 (0.0-0.4); EOSINOPHILS % 2.3 % (0.0-6.0); HEMATOCRIT 31.9 % (38.2-49.6); HEMOGLOBIN 9.4 g/dL (14.0-18.0); LYMPHOCYTES # (AUTO) 0.9 (1.0-3.2); LYMPHOCYTES % 12.1 % (18.0-39.1); MEAN CORPUSCULAR HEMOGLOBIN 24.1 pg (28-32); MEAN CORPUSCULAR HGB CONC 29.5 g/dL (31-35); MEAN CORPUSCULAR VOLUME 81.8 fL (81-99); MONOCYTES # (AUTO) 0.8 (0.2-0.8); NEUTROPHILS # (AUTO) 5.2 (2.1-6.9); NEUTROPHILS % 73.5 % (38.7-80.0); PLATELET COUNT 344 x10e3/uL (140-360); RED CELL DISTRIBUTION WIDTH 18.1 % (11.7-14.4)
[2018-06-21 06:00] LABS: ANION GAP 12.1 mmol/L (8-16); BLOOD UREA NITROGEN < 5 mg/dL (7-26); CALCIUM 9.2 mg/dL (8.4-10.2); CARBON DIOXIDE 26 mmol/L (22-29); CHLORIDE 104 mmol/L (98-107); CREATININE, SERUM 0.71 mg/dL (0.72-1.25); EST GLOMERULAR FILTRATION RATE > 60 ML/MIN (60-); GLUCOSE 122 mg/dL (74-118); POTASSIUM 4.1 mmol/L (3.5-5.1); SODIUM 138 mmol/L (136-145)
[2018-06-21 06:06] LABS: BUN/CREATININE RATIO 7 (6-25)
[2018-06-21 07:33] VITALS: BP 135/97
--- NOTE | 2018-06-21 08:16 | NUR ---
patient to endo at this time.
[2018-06-21 08:19] VITALS: BP 135/97
[2018-06-21 08:55] VITALS: BP 111/77
[2018-06-21] MEDS ORDERED: MORPHINE SULFATE INJ 4 MG/ML INJ 1ML IV PRN (10:15)
[2018-06-21] MEDS ORDERED: MORPHINE SULFATE 2 MG/ML SYR 1ML IV PRN (10:15)
--- NOTE | 2018-06-21 12:11 | Progress Note ---
DATE: Medical Progress Note SUBJECTIVE: The patient underwent status post EGD today, has had no evidence of any bleeding. The patient seems to be likely malingering in terms of his issues. The patient is always requesting pain medication because he was treated with all medications except for Dilaudid. The patient has been cleared for discharge by GI. OBJECTIVE: VITAL SIGNS: Temperature 98.1, pulse is 101, respiratory rate is 16, blood pressure 111/77, and pulse ox 95% on room air. GENERAL: Not in acute distress. Alert and oriented x3. Cooperative on examination. HEENT: Head is normocephalic and atraumatic. Eyes; pupils are equal, round, and reactive to light bilaterally. Extraocular movements are intact bilaterally. Throat, no evidence of erythema or exudates in the posterior pharynx. Has poor dentition. NECK: Supple. Good range of motion. PULMONARY: Clear to auscultation bilaterally. No wheezing, no rales, no rhonchi, no crackles appreciated. CARDIOVASCULAR: Positive S1, S2. No murmurs, rubs, or gallops appreciated. ABDOMEN: Soft, nondistended, and nontender to palpation. Bowel sounds present. MUSCULOSKELETAL: Strength is 5/5 throughout. No evidence of any muscle deficits on examination. No weakness appreciated. NEUROLOGICAL: Cranial nerves II through XII grossly intact. No evidence of any neurological deficits on exam. SKIN: Intact. Warm to touch. Good cap refill. PSYCHIATRIC: Normal affect and mood. EXTREMITIES: No edema. Good range of motion throughout. LAB FINDINGS: White count is 7, hemoglobin 9.4, hematocrit 31.9, and platelets of 344. Chemistry; sodium 138, potassium 4.1, chloride , bicarb 26, anion gap of 12, BUN is 5, creatinine is 0.71, glucose is 122, and calcium 9.2. MICROBIOLOGY: None. IMAGING STUDIES: None new. IMPRESSION: 1. Hematemesis concerning for upper gastrointestinal bleed, status post esophagogastroduodenoscopy, found to have negative findings. 2. Chronic pain syndrome concerning for malingering tendencies for drug-seeking behavior. 3. History of bowel obstruction with history of percutaneous endoscopic gastrostomy tube placement. 4. Anemia, hemoglobin found to be stable. PLAN: At this time, EGD was found to be negative. He reports that his PEG tube site has a little bit of leakage when he had a PEG tube in the past back in January more than five months ago, but has not sought any attention. At this time, we will get IR to come and evaluate it, but if IR has no further intervention needed, we will go ahead and discharge the patient home. GI cleared the patient for discharge. We will go ahead and stop all Dilaudid at this time. There is no indication for any pain medications with Dilaudid at this time. If IR clears this patient, we will discharge him home later today. Discussed with nursing staff. MD LOAN Guzmán/WILLIAM /[id number]
[2018-06-21] MEDS ORDERED: ONDANSETRON HCL INJ 2MG/ML 2ML 2 MG/ML VIAL ONE (19:11)
[2018-06-21] MEDS ORDERED: LIDOCAINE HCL 2% LOCAL INJ 5 ML SDV VIAL INJ ONE (19:11)
[2018-06-21] MEDS ORDERED: PROPOFOL IV EMULSION 10 MG/ML 20 ML VIAL ONE (19:11)
[2018-06-21] MEDS ORDERED: FENTANYL CITRATE/PF 100MCG/2 ML INJ ONE (19:21)
[2018-06-21] MEDS ORDERED: MIDAZOLAM HCL 2 MG/2 ML VIAL ONE (19:21)
[2018-06-22] MEDS ORDERED: PANTOPRAZOLE SOD 40 MG TABEC PO SCH (07:30)
--- NOTE | 2018-06-23 07:18 | Discharge Summary ---
FINAL DISCHARGE DIAGNOSES: 1. Hematemesis, status post esophagogastroduodenoscopy. 2. showed no evidence of any active bleeding with stable hemoglobin. 3. Chronic pain syndrome concerning for malingering tendencies for drug-seeking behavior. 4. History of bowel obstruction with resection. 5. History of percutaneous endoscopic gastrostomy tube placement in the past. 6. Anemia, found to be stable. 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 PHYSICAL EXAMINATION: VITAL SIGNS: Temperature is 98.1, pulse is 101, respiratory rate 16, blood pressure 111/77, pulse ox 95% on room air. LABORATORY FINDINGS: Show white count 7, hemoglobin 9.4, hematocrit 32, and platelets of 344. Coagulation; PT 13, INR 1, PTT 39. Chemistry; sodium 138, potassium 4.1, chloride 104, bicarb 26, anion gap of 12, BUN is less than 5, creatinine is 0.71, glucose is 122, calcium 9.2. IMAGING STUDIES: Chest x-ray is negative. CT abdomen and pelvis shows no acute abdominal pelvic abnormalities. Nonobstructing punctate left renal calculus. He has a PICC line placed shows evidence PICC line on the tip of the SVC. HOSPITAL COURSE: A 38-year-old male, who came into the ED with complaints of underlying hematemesis. On admission, the patient was found to have a hemoglobin of 8.9. There was a pulse rating of 7.1, was not given a blood transfusion, but on discharge hemoglobin was 9.4, which was stable throughout hospital course. GI was consulted, underwent status post EGD, which showed no evidence of any active bleeding. The patient was then cleared for discharge by GI. While here, the patient was requesting pain medications for unknown etiology of his pain. The patient did not exhibit any evidence of any pain and was requesting Dilaudid frequently. The patient was stable, tolerating diet well with no other complaints. There is some concern the patient likely malingering for underlying drug-seeking behavior for pain medication. On discharge, the patient was back to normal baseline, stable. No complaints. No abdominal pain. Tolerating diet well. Hemoglobin was stable. On the day of discharge, vital signs stable, labs reviewed and stable. The patient was seen, evaluated, examined thoroughly on the day of discharge. No other complaints. The patient verbalized understanding and agreed to plan of care to followup appointment as an outpatient with primary care physician in 1 week and GI specialist in 2 weeks time. The patient was cleared for discharge home by GI. MEDICATIONS: See med reconciliation form. DISPOSITION: Home. CONDITION: Stable. DIET: Heart healthy. In the event of any worsening symptoms, the patient was advised to come back to the ED for further evaluation. Discharge summary took greater than 35 minutes. MD LOAN Guzmán/WILLIAM /[id number]
== END 2018-06-21 10:18 | disposition home or self-care (01) ==
LOC: FSED 18:17 → ERHOLD 06-20 01:48 → MED/SURG 06-20 02:28 → IMCU 06-20 21:31
PROVIDERS: ADMIT Internal Medicine; ATTEND Internal Medicine
DX: K92.2 Gastrointestinal hemorrhage, unspecified (principal); G89.4 Chronic pain syndrome; Z76.5 Malingerer [conscious simulation]; D64.9 Anemia, unspecified; N20.0 Calculus of kidney; K21.9 Gastro-esophageal reflux disease without esophagitis; Z85.841 Personal history of malignant neoplasm of brain; Z90.49 Acquired absence of other specified parts of digestive tract
CPT/HCPCS: 36415 ×2; 36569 ×2; 43235; 71045; 71046; 74176; 74470; 80048 ×3; 80076; 82270; 85014 ×2; 85018 ×2; 85025 ×3; 85610; 85730; 86850; 86900; 86920; 96374; 96375; 99284; G0378 ×2; J1170 ×2; J1642; J2001; J2250; J2270 ×2; J2353; J2405 ×2; J2550 ×3; J2704; J7050

== ENCOUNTER 2020-07-11 18:45 | Emergency (ER) | payer SELFPAY ==
[~2020-07-11] VITALS: Ht 177.8 cm; Wt 72.6 kg
[~2020-07-11 18:45] MED LIST: ATIVAN IV; BENADRYL IV; DECADRON IV; DILANTIN IV; DILANTIN50 MG PO; HYDROMORPHO2 MG/1 M7 IV; KEPPRA500 MG PO; KEPPRA500 MG/5 M IV; PHENERGAN25 MG/1 ML IV; PROTONIX IV; REGLAN5 MG PO
[2020-07-12] MEDS ORDERED: DILAUDID4 MG PO (08:51)
[2020-07-12] MEDS ORDERED: TPN ELECTROLYTE20 M1 (08:51)
[2020-07-12] MEDS ORDERED: FLUCONAZOLE100 MG PO (08:51)
[2020-07-12] MEDS ORDERED: PROMETHAZINE HC25 M1 PO (08:51)
[2020-07-12] MEDS ORDERED: ATIVAN1 MG PO (08:51)
[2020-07-12] MEDS ORDERED: KEPPRA500 MG PO (08:51)
[2020-07-12] MEDS ORDERED: BENADRYL25 M1 PO (08:51)
[2020-07-12] MEDS ORDERED: DECADRON4 M1 PO (08:51)
[2020-07-12] MEDS ORDERED: DILANTIN100 MG PO (08:51)
[2020-07-12] MEDS ORDERED: PANTOPRAZOLE SO40 MG PO (08:51)
== END 2020-07-11 19:45 | disposition home or self-care (01) ==
LOC: ER 19:31
DX: Z76.5 Malingerer [conscious simulation] (principal); I10 Essential (primary) hypertension; M54.9 Dorsalgia, unspecified; G89.29 Other chronic pain; Z85.89 Personal history of malignant neoplasm of other organs and systems
CPT/HCPCS: 99282

== ENCOUNTER 2020-07-12 08:24 | Emergency (ER) | payer SELFPAY ==
[~2020-07-12] VITALS: Ht 177.8 cm; Wt 75.9 kg
[2020-07-12] MEDS ORDERED: DECADRON4 M1 PO (08:51)
[2020-07-12] MEDS ORDERED: FLUCONAZOLE100 MG PO (08:51)
[2020-07-12] MEDS ORDERED: ATIVAN1 MG PO (08:51)
[2020-07-12] MEDS ORDERED: DILAUDID4 MG PO (08:51)
[2020-07-12] MEDS ORDERED: PROMETHAZINE HC25 M1 PO (08:51)
[2020-07-12] MEDS ORDERED: PANTOPRAZOLE SO40 MG PO (08:51)
[2020-07-12] MEDS ORDERED: BENADRYL25 M1 PO (08:51)
[2020-07-12] MEDS ORDERED: DILANTIN100 MG PO (08:51)
[2020-07-12] MEDS ORDERED: TPN ELECTROLYTE20 M1 (08:51)
[2020-07-12] MEDS ORDERED: KEPPRA500 MG PO (08:51)
[2020-07-12] MEDS ORDERED: ONDANSETRON HCL INJ 2MG/ML 2ML 2 MG/ML VIAL IV STA (13:01)
[2020-07-12] MEDS ORDERED: MORPHINE SULFATE INJ 2 MG/ML SYR IV STA (13:01)
[2020-07-12] MEDS ORDERED: ONDANSETRON HCL INJ 2MG/ML 2ML 2 MG/ML VIAL ONE (13:11)
[2020-07-12] MEDS ORDERED: MORPHINE SULFATE INJ 4 MG/ML INJ 1ML ONE ×2 (13:11→16:11)
[2020-07-12] MEDS ORDERED: DIPHENHYDRAMINE HCL INJ 50 MG/ML VIAL ONE (13:17)
[2020-07-12] MEDS ORDERED: DIPHENHYDRAMINE HCL INJ 50 MG/ML VIAL IV NR (14:00)
[2020-07-12] MEDS ORDERED: MORPHINE SULFATE INJ 4 MG/ML INJ 1ML IV ONE (16:00)
[2020-07-12 16:13] VITALS: BP 109/62
== END 2020-07-12 16:15 | disposition other institution (70) ==
LOC: FSED 09:05
DX: R11.10 Vomiting, unspecified (principal); K91.2 Postsurgical malabsorption, not elsewhere classified; D64.9 Anemia, unspecified; I99.8 Other disorder of circulatory system; M16.11 Unilateral primary osteoarthritis, right hip; M54.9 Dorsalgia, unspecified; G89.29 Other chronic pain
CPT/HCPCS: 73502; 80053; 81003; 85025; 99284; J1200; J2270 ×2; J2405

== ENCOUNTER 2020-07-20 03:40 | Observation (INO) | payer SELFPAY ==
[~2020-07-20] VITALS: Ht 177.8 cm; Wt 72.6 kg
[~2020-07-20 03:40] MED LIST changes: +ATIVAN1 MG PO; +BENADRYL25 M1 PO; +DECADRON4 M1 PO; +DILANTIN100 MG PO; +DILAUDID4 MG PO; +FLUCONAZOLE100 MG PO; +PANTOPRAZOLE SO40 MG PO; +PROMETHAZINE HC25 M1 PO; +TPN ELECTROLYTE20 M1
[2020-07-20 08:46] LABS: BASOPHILS % 0.3 % (0.0-1.0); EOSINOPHILS # (AUTO) 0.1 (0.0-0.4); EOSINOPHILS % 2.2 % (0.0-6.0); HEMATOCRIT 23.3 % (38.2-49.6); HEMOGLOBIN 7.2 g/dL (14.0-18.0); LYMPHOCYTES # (AUTO) 0.6 (1.0-3.2); LYMPHOCYTES % 10.1 % (18.0-39.1); MEAN CORPUSCULAR HEMOGLOBIN 27.5 pg (28-32); MEAN CORPUSCULAR HGB CONC 30.9 g/dL (31-35); MEAN CORPUSCULAR VOLUME 88.9 fL (81-99); MONOCYTES # (AUTO) 0.6 (0.2-0.8); MONOCYTES % 9.1 % (4.4-11.3); NEUTROPHILS # (AUTO) 4.8 (2.1-6.9); NEUTROPHILS % 77.7 % (38.7-80.0); PLATELET COUNT 277 x10e3/uL (140-360); RED BLOOD COUNT 2.62 x10e6/uL (4.3-5.7); RED CELL DISTRIBUTION WIDTH 15.7 % (11.7-14.4)
[2020-07-20] MEDS ORDERED: ENOXAPARIN INJ 80 MG/0.8 ML SYR SC SCH (09:00)
[2020-07-20 09:08] LABS: ALANINE AMINOTRANSFERASE 15 IU/L (0-55); ALBUMIN 3.2 g/dL (3.5-5.0); ALBUMIN/GLOBULIN RATIO 1.1 (0.8-2.0); ALKALINE PHOSPHATASE 65 IU/L (40-150); BLOOD UREA NITROGEN 11 mg/dL (7-26); BUN/CREATININE RATIO 16 (6-25); CARBON DIOXIDE 26 mmol/L (22-29); CHLORIDE 105 mmol/L (98-107); CREATINE KINASE 27 IU/L (30-200); CREATININE, SERUM 0.69 mg/dL (0.72-1.25); EST GLOMERULAR FILTRATION RATE > 60 ML/MIN (60-); GLUCOSE 90 mg/dL (74-118); MAGNESIUM 1.8 MG/DL (1.3-2.1); SODIUM 141 mmol/L (136-145)
[2020-07-20 09:11] LABS: INR 0.94; PROTHROMBIN TIME 13.2 seconds (11.9-14.5)
[2020-07-20 09:12] LABS: PARTIAL THROMBOPLASTIN TIME 32.9 seconds (23.8-35.5)
[2020-07-20] MEDS: SODIUM CHLORIDE 0.9% IV SCH ×2 (09:30→22:04)
[2020-07-20] MEDS ORDERED: ACETAMINOPHEN 1000 MG/100 ML IV PRN ×2 (09:30→15:30)
[2020-07-20] MEDS ORDERED: DIPHENHYDRAMINE HCL INJ 50 MG/ML VIAL IV PRN (09:30)
[2020-07-20] MEDS: LEVETIRACETAM IV SCH ×2 (09:30→22:04)
[2020-07-20] MEDS: DEXTROSE 5%/0.9% SOD CHL 1,000 ML IV SCH ×2 (12:29→19:00)
[2020-07-20 15:13] VITALS: BP 100/62
[2020-07-20] MEDS ORDERED: ONDANSETRON HCL INJ 2MG/ML 2ML 2 MG/ML VIAL IV PRN (15:30)
[2020-07-20] MEDS ORDERED: HYDRALAZINE HCL 20 MG/ML VIAL IV PRN (15:30)
[2020-07-20 17:02] VITALS: BP 100/62
[2020-07-20] MEDS ORDERED: XARELTO10 MG PO (18:29)
[2020-07-20] MEDS ORDERED: LOVENOX80 MG/0.8 SC (18:29)
[2020-07-20 20:45] VITALS: BP 100/71
[2020-07-20 21:00] VITALS: BP 100/71
[2020-07-20] MEDS ORDERED: LEVETIRACETAM 500 MG/5 ML VIAL IV ONE ×2 (21:11→21:49)
[2020-07-20] MEDS ORDERED: SODIUM CHLORIDE 0.9% 100 ML ONE (21:12)
[2020-07-21] VITALS (7 sets, daily range): BP systolic 89–120; BP diastolic 65–87
[2020-07-21] MEDS: DEXTROSE 5%/0.9% SOD CHL 1,000 ML IV SCH ×2 (05:00→16:21)
[2020-07-21 05:25] LABS: BASOPHILS % 0.3 % (0.0-1.0); EOSINOPHILS # (AUTO) 0.1 (0.0-0.4); EOSINOPHILS % 3.6 % (0.0-6.0); HEMATOCRIT 21.6 % (38.2-49.6); LYMPHOCYTES # (AUTO) 0.7 (1.0-3.2); LYMPHOCYTES % 17.4 % (18.0-39.1); MEAN CORPUSCULAR HEMOGLOBIN 27.6 pg (28-32); MEAN CORPUSCULAR VOLUME 88.9 fL (81-99); MONOCYTES # (AUTO) 0.5 (0.2-0.8); NEUTROPHILS # (AUTO) 2.5 (2.1-6.9); NEUTROPHILS % 64.9 % (38.7-80.0); PLATELET COUNT 264 x10e3/uL (140-360); RED BLOOD COUNT 2.43 x10e6/uL (4.3-5.7); RED CELL DISTRIBUTION WIDTH 15.3 % (11.7-14.4)
[2020-07-21 05:37] LABS: HEMOGLOBIN 6.7 g/dL (14.0-18.0)
[2020-07-21 06:12] LABS: ALANINE AMINOTRANSFERASE 12 IU/L (0-55); ALBUMIN 2.9 g/dL (3.5-5.0); ALBUMIN/GLOBULIN RATIO 1.1 (0.8-2.0); ALKALINE PHOSPHATASE 66 IU/L (40-150); BLOOD UREA NITROGEN 10 mg/dL (7-26); BUN/CREATININE RATIO 14 (6-25); CALCIUM 8.3 mg/dL (8.4-10.2); CARBON DIOXIDE 25 mmol/L (22-29); CHLORIDE 109 mmol/L (98-107); CREATININE, SERUM 0.69 mg/dL (0.72-1.25); EST GLOMERULAR FILTRATION RATE > 60 ML/MIN (60-); GLUCOSE 92 mg/dL (74-118); SODIUM 141 mmol/L (136-145)
[2020-07-21] MEDS ORDERED: PANTOPRAZOLE SO40 MG PO (06:51)
[2020-07-21] MEDS ORDERED: ASCORBIC ACID500 M2 PO (06:58)
[2020-07-21] MEDS ORDERED: FERROUS SULFAT325 MG PO (06:58)
[2020-07-21] MEDS ORDERED: DOCUSATE SODIU100 MG PO (06:58)
[2020-07-21] MEDS ORDERED: SODIUM CHLORIDE 0.9% 250ML 250 ML IV ONE (07:10)
[2020-07-21] MEDS: RIVAROXABAN 10 MG TABLET PO SCH ×2 (08:55→15:27)
[2020-07-21 09:12] LABS: ELLIPTOCYTE, RBC SLIGHT; LYMPHOCYTES % (MANUAL) 15 % (19-48); MONOCYTES % (MANUAL) 4 % (3.4-9.0); NEUTROPHILS % (MANUAL) 81 % (40-74); PLATELET ESTIMATE ADEQUATE; PLATELET MORPHOLOGY COMMENT NORMAL; RBC MORPHOLOGY COMMENT ABNORMAL
[2020-07-21 09:13] LABS: OVALOCYTES MODERATE
[2020-07-21] MEDS: SODIUM CHLORIDE 0.9% IV SCH ×2 (09:39→21:58)
[2020-07-21] MEDS: LEVETIRACETAM IV SCH ×2 (09:39→21:58)
[2020-07-21] MEDS ORDERED: SODIUM CHLORIDE 0.9% 500ML 500 ML ONE (10:56)
[2020-07-21] MEDS: PANTOPRAZOLE SOD 40 MG TABEC PO SCH (13:04)
[2020-07-21 16:22] LABS: HEMATOCRIT 25.1 % (38.2-49.6)
[2020-07-22 00:45] VITALS: BP 103/62
[2020-07-22] MEDS: DEXTROSE 5%/0.9% SOD CHL 1,000 ML IV SCH ×2 (03:22→14:00)
[2020-07-22 05:30] LABS: BASOPHILS % 0.4 % (0.0-1.0); EOSINOPHILS # (AUTO) 0.1 (0.0-0.4); EOSINOPHILS % 2.9 % (0.0-6.0); HEMATOCRIT 24.6 % (38.2-49.6); HEMOGLOBIN 7.7 g/dL (14.0-18.0); LYMPHOCYTES # (AUTO) 0.8 (1.0-3.2); LYMPHOCYTES % 17.4 % (18.0-39.1); MEAN CORPUSCULAR HEMOGLOBIN 27.2 pg (28-32); MEAN CORPUSCULAR HGB CONC 31.3 g/dL (31-35); MEAN CORPUSCULAR VOLUME 86.9 fL (81-99); MONOCYTES # (AUTO) 0.6 (0.2-0.8); MONOCYTES % 12.7 % (4.4-11.3); NEUTROPHILS % 66.2 % (38.7-80.0); PLATELET COUNT 281 x10e3/uL (140-360); RED BLOOD COUNT 2.83 x10e6/uL (4.3-5.7); RED CELL DISTRIBUTION WIDTH 15.6 % (11.7-14.4)
[2020-07-22 07:57] VITALS: BP 101/71
[2020-07-22] MEDS: PANTOPRAZOLE SOD 40 MG TABEC PO SCH (08:18)
[2020-07-22] MEDS: RIVAROXABAN 10 MG TABLET PO SCH (08:18)
[2020-07-22] MEDS: LEVETIRACETAM IV SCH (08:19)
[2020-07-22] MEDS: SODIUM CHLORIDE 0.9% IV SCH (08:19)
[2020-07-22 08:35] VITALS: BP 101/71
[2020-07-22] MEDS ORDERED: ACETAMINOPHEN 325 MG TAB PO PRN (10:30)
[2020-07-22] MEDS ORDERED: ONDANSETRON HCL 4 MG ORAL DISINTEGRATING TAB PO PRN (13:00)
== END 2020-07-22 14:39 | disposition home or self-care (01) ==
LOC: ER 04:19 → ERHOLD 09:32 → MED/SURG2 14:29
PROVIDERS: ADMIT Internal Medicine; ATTEND Internal Medicine
DX: G40.901 Epilepsy, unspecified, not intractable, with status epilepticus (principal)
CPT/HCPCS: 36415 ×3; 36569; 70450; 80053 ×2; 80185; 82550; 82553; 82948; 83735; 84484; 85014; 85018; 85025 ×3; 85610; 85730; 86850; 86900; 86920; 93005; 93970; 99282; G0378 ×3; J0131; J1200; J1650; J1953 ×3; J7040; J7042 ×3; J7050; P9016; S0164 ×2; U0002

== ENCOUNTER 2020-08-02 05:03 | Emergency (ER) | payer SELFPAY ==
[~2020-08-02] VITALS: Ht 177.8 cm; Wt 72.6 kg
[~2020-08-02 05:03] MED LIST changes: +ASCORBIC ACID500 M2 PO; +DOCUSATE SODIU100 MG PO; +FERROUS SULFAT325 MG PO; +LOVENOX80 MG/0.8 SC; +XARELTO10 MG PO
[2020-08-02 05:51] VITALS: BP 139/84
== END 2020-08-02 05:51 | disposition home or self-care (01) ==
LOC: FSED 05:35
DX: M79.604 Pain in right leg (principal); G40.909 Epilepsy, unspecified, not intractable, without status epilepticus; F41.9 Anxiety disorder, unspecified; M54.9 Dorsalgia, unspecified; G89.29 Other chronic pain; Z86.718 Personal history of other venous thrombosis and embolism; Z85.89 Personal history of malignant neoplasm of other organs and systems
CPT/HCPCS: 99282

== ENCOUNTER 2020-08-02 12:14 | Emergency (ER) | payer SELFPAY ==
[~2020-08-02] VITALS: Ht 177.8 cm; Wt 72.6 kg
== END 2020-08-02 14:28 | disposition home or self-care (01) ==
LOC: ER 13:50
DX: M79.604 Pain in right leg (principal); M54.9 Dorsalgia, unspecified; G89.29 Other chronic pain; G40.909 Epilepsy, unspecified, not intractable, without status epilepticus; Z86.718 Personal history of other venous thrombosis and embolism; Z85.89 Personal history of malignant neoplasm of other organs and systems
CPT/HCPCS: 93971; 99283

== ENCOUNTER 2021-01-08 18:57 | Emergency (ER) | payer OTHER ==
[~2021-01-08] VITALS: Ht 177.8 cm; Wt 72.6 kg
[2021-01-08 19:39] LABS: BASOPHILS % 0.2 % (0.0-1.0); EOSINOPHILS # (AUTO) 0.1 (0.0-0.4); EOSINOPHILS % 0.6 % (0.0-6.0); HEMATOCRIT 35.7 % (38.2-49.6); LYMPHOCYTES # (AUTO) 0.7 (1.0-3.2); LYMPHOCYTES % 7.6 % (18.0-39.1); MEAN CORPUSCULAR HEMOGLOBIN 28.4 pg (28-32); MEAN CORPUSCULAR HGB CONC 30.8 g/dL (31-35); MONOCYTES # (AUTO) 0.7 (0.2-0.8); MONOCYTES % 7.7 % (4.4-11.3); NEUTROPHILS # (AUTO) 7.8 (2.1-6.9); NEUTROPHILS % 83.5 % (38.7-80.0); PLATELET COUNT 318 x10e3/uL (140-360); RED BLOOD COUNT 3.88 x10e6/uL (4.3-5.7); RED CELL DISTRIBUTION WIDTH 15.6 % (11.7-14.4)
[2021-01-08] MEDS ORDERED: Morphine 4mg Syringe 4 MG/ML INJ IM ONE (19:45)
[2021-01-08 20:03] LABS: ANION GAP 16.7 mmol/L (8-16); CALCIUM 8.6 mg/dL (8.4-10.2); CREATININE, SERUM 0.79 mg/dL (0.72-1.25); POTASSIUM 3.7 mmol/L (3.5-5.1)
[2021-01-08 21:25] VITALS: BP 119/82
== END 2021-01-08 21:30 | disposition home or self-care (01) ==
LOC: ER 19:07
DX: S70.01XA Contusion of right hip, initial encounter (principal); C80.1 Malignant (primary) neoplasm, unspecified; D64.9 Anemia, unspecified; K92.0 Hematemesis; W19.XXXA Unspecified fall, initial encounter; Y92.481 Parking lot as the place of occurrence of the external cause; Z79.899 Other long term (current) drug therapy; Z88.8 Allergy status to other drugs, medicaments and biological substances; Z88.6 Allergy status to analgesic agent; Z91.041 Radiographic dye allergy status; Z86.711 Personal history of pulmonary embolism; Z86.718 Personal history of other venous thrombosis and embolism
CPT/HCPCS: 36415; 73502; 80048; 85025; 99283; J2270